=== PATIENT | female | born 1950 | race Caucasian/White ===

== ENCOUNTER 2016-10-24 19:07 | Emergency (ER) | payer SELFPAY ==
[2016-10-24 20:32] VITALS: RESP 18
[2016-10-24] MEDS ORDERED: Sodium Chloride 0.9% 1,000 ML IV ONE (21:09)
[2016-10-24 21:29] LABS: BASO # 0.1 K/uL (0.0-0.2); EOS # 0.2 K/uL (0.0-0.7); EOS % 1.2 % (0.0-4.0); HEMATOCRIT 38.5 % (34.0-47.0); LYMPH % 21.8 % (20.0-40.0); MEAN CELL VOLUME 77.9 fL (81.0-99.0); MEAN CORPUSCULAR HEMOGLOBIN 24.9 pg (27.0-31.0); MEAN CORPUSCULAR HGB CONC 31.9 g/dL (33.0-37.0); MEAN PLATELET VOLUME 9.7 fL (7.2-11.7); MONO # 1.8 K/uL (0.0-0.8); MONO % 13.4 % (0.0-10.0); WHITE BLOOD COUNT 13.8 K/uL (4.8-10.8)
[2016-10-24 21:34] LABS: CHLORIDE 94 mmol/L (98-107)
[2016-10-24 21:35] LABS: SODIUM 137 mmol/L (132-148)
[2016-10-24 21:37] LABS: BILIRUBIN,TOTAL 0.3 mg/dL (0.2-1.3); GFR AFRICAN-AMERICAN > 60
[2016-10-24 21:38] LABS: ALB/GLOB RATIO 1.2 (1.0-2.1); ALKALINE PHOSPHATASE 68 U/L (38-126); ALT/SGPT 26 U/L (9-52); AST/SGOT 82 U/L (14-36); BLOOD UREA NITROGEN 21 mg/dL (7-17); CALCIUM 12.5 mg/dl (8.6-10.4); CARBON DIOXIDE 29 mmol/L (22-30); GLUCOSE,RANDOM 110 mg/dL (65-105)
[2016-10-24 21:50] LABS: URINE BILIRUBIN NEGATIVE (NEGATIVE); URINE BLOOD NEGATIVE (NEGATIVE); URINE COLOR Straw (YELLOW); URINE GLUCOSE (UA) NORMAL (Normal); URINE KETONE NEGATIVE (NEGATIVE); URINE LEUKOCYTE ESTERASE TRACE Leu/uL (Negative); URINE PROTEIN NEGATIVE (NEGATIVE); URINE UROBILINOGEN NORMAL mg/dL (0.2-1.0); WBC URINE 2 /hpf (0-5)
[2016-10-24 23:11] LABS: CHLORIDE 97 mmol/L (98-107); POTASSIUM 3.6 mmol/L (3.6-5.2); SODIUM 139 mmol/L (132-148)
[2016-10-24 23:14] LABS: ALB/GLOB RATIO 1.3 (1.0-2.1); ALKALINE PHOSPHATASE 66 U/L (38-126); ALT/SGPT 24 U/L (9-52); AST/SGOT 79 U/L (14-36); BILIRUBIN,TOTAL 0.2 mg/dL (0.2-1.3); BLOOD UREA NITROGEN 17 mg/dL (7-17); CALCIUM 11.9 mg/dl (8.6-10.4); CARBON DIOXIDE 26 mmol/L (22-30); GFR AFRICAN-AMERICAN > 60; GLUCOSE,RANDOM 115 mg/dL (65-105); TOTAL PROTEIN 7.7 g/dL (6.3-8.3)
[2016-10-24 23:36] VITALS: BP 121/79; PULSE 88; TEMP 98.3; O2SAT 97
--- NOTE | 2016-10-24 23:47 | C.PDOC ---
Time Seen by Provider: 10/24/16 21:00 Chief Complaint (Nursing): Weakness/Neurological Deficit History Per: Patient, Family Onset/Duration Of Symptoms: Days (few), Waxing/Waning Current Symptoms Are (Timing): Still Present Current Symptoms: Generalized weakness/malaise Seizure Or Post-ictal Symptoms: None Fall Associated With With Symptoms: No Severity: Moderate Additional History Per: Prior Records - Symptoms Of CVA Associated Symptoms: denies: Impaired Speech, Seizure Activity, New Vision Deficit(Left), New Vision Deficit(Right), New Confusion Recent Head Trauma: No Past Medical History Reviewed: Historical Data, Nursing Documentation, Vital Signs Vital Signs: Last Vital Signs Temp 98.3 F 10/24/16 23:31 Pulse 88 10/24/16 23:31 Resp 18 10/24/16 23:31 BP 121/79 10/24/16 23:31 Pulse Ox 97 10/24/16 23:31 - Medical History PMH: Cardia Arrhythmia, Diabetes, Diverticulitis, HTN, Hypercholesterolemia Surgical History: Appendectomy, Cholecystectomy, Coronary Stent (2007) - [employer] Procedures LAPAROSCOP APPENDECTOMY (03/18/15) MEASURE OF CARDIAC SAMPL & PRESSURE, L HEART, PERC APPROACH (05/05/15) PLAIN RADIOGRAPHY OF LEFT HEART USING OTHER CONTRAST (05/05/15) PLAIN RADIOGRAPHY OF THORACIC AORTA USING OTHER CONTRAST (05/05/15) Family History: States: Unknown Family Hx - Social History Hx Tobacco Use: No Hx Alcohol Use: No Hx Substance Use: No - Immunization History Hx Tetanus Toxoid Vaccination: No Hx Influenza Vaccination: No Hx Pneumococcal Vaccination: Yes Review Of Systems Except As Marked, All Systems Reviewed And Found Negative. Constitutional: Positive for: Malaise. Negative for: Fever Cardiovascular: Negative for: Chest Pain Respiratory: Negative for: Shortness of Breath Gastrointestinal: Negative for: Vomiting, Abdominal Pain, Diarrhea Genitourinary: Positive for: Frequency. Negative for: Dysuria Musculoskeletal: Negative for: Neck Pain Skin: Negative for: Rash Neurological: Negative for: Weakness, Numbness, Seizures, Altered Mental Status , Headache Psych: Negative for: Psychosis Physical Exam - Physical Exam Appears: Non-toxic, No Acute Distress Skin: Normal Color, Warm, Dry, No Rash Head: Atraumatic, Normacephalic Eye(s): bilateral: PERRL, EOMI Neck: Normal ROM, Supple Cardiovascular: Rhythm Regular Respiratory: Normal Breath Sounds, No Accessory Muscle Use Gastrointestinal/Abdominal: Soft, No Tenderness Back: No CVA Tenderness Extremity: Normal ROM, No Pedal Edema Neurological/Psych: Oriented x3, Normal Cognition, Normal Motor, Normal Sensation ED Course And Treatment - Laboratory Results Result Diagrams: 10/24/16 21:25 10/24/16 23:02 Lab Interpretation: Abnormal Interpretation Of Abnormal: Moderate hypercalcemia ECG: Interpreted By Me, Viewed By Me ECG Rhythm: Sinus Rhythm, 1st Degree HB, Nonspecific Changes Rate From EC O2 Sat by Pulse Oximetry: 97 Pulse Ox Interpretation: Normal Progress Note: After IV fluids, repeat chemistry now shows mild hypercalcemia and pt is now asymptomatic. Pt needs further work-up of the cause of hypercalcemia, but this can be done as outpt. Of note, pt take vitamin D supplement. Also, pt takes HCTZ which can exacerbate hypercalcemia. In instructed her to stop both and f/up in the clinic for further evaluation. Reassessment Condition: Improved Disposition Counseled Patient/Family Regarding: Studies Performed, Diagnosis, Need For Followup - Disposition Referrals: [facility] [Outside] Disposition: HOME/ ROUTINE Disposition Time: 23:52 Condition: IMPROVED Additional Instructions: Stop taking your Vitamin D supplement. Follow up in the clinic within 1 week for further evaluation and treatment. Return to the ER if you develop lethargy, vomiting, chest pain, worsening of symptoms or if you have any other concerns. Instructions: Hypercalcemia (ED) - Clinical Impression Clinical Impression: Hypercalcemia
--- NOTE | 2016-10-26 19:04 | CARD ---
APPROVED REPORT EKG Measurement Heart [id number] <Conclusion> Sinus rhythm with 1st degree AV block Nonspecific T wave abnormality Abnormal ECG
== END 2016-10-25 00:07 | disposition home or self-care (01) ==
LOC: C.ER 19:07
DX: E83.52 Hypercalcemia (principal)
CPT/HCPCS: 80053; 81001; 83735; 83880; 84484; 85025; 87086; 93005; 96360; 99285; J7040

== ENCOUNTER 2016-11-03 15:26 | Inpatient (IN) | payer OTHER ==
[2016-11-03] MEDS ORDERED: Sodium Chloride 0.9% 1,000 ML IV ONE (16:48)
[2016-11-03 16:58] LABS: BASO # 0.2 K/uL (0.0-0.2); BASO % 1.1 % (0.0-2.0); EOS # 0.1 K/uL (0.0-0.7); EOS % 0.6 % (0.0-4.0); HEMATOCRIT 36.3 % (34.0-47.0); LYMPH % 19.7 % (20.0-40.0); MEAN CELL VOLUME 77.8 fL (81.0-99.0); MEAN CORPUSCULAR HGB CONC 32.1 g/dL (33.0-37.0); MEAN PLATELET VOLUME 9.9 fL (7.2-11.7); MONO # 2.1 K/uL (0.0-0.8); MONO % 13.9 % (0.0-10.0); WHITE BLOOD COUNT 15.3 K/uL (4.8-10.8)
[2016-11-03 17:06] LABS: CHLORIDE 100 mmol/L (98-107); SODIUM 136 mmol/L (132-148)
[2016-11-03 17:07] LABS: POTASSIUM 3.7 mmol/L (3.6-5.2)
[2016-11-03 17:08] LABS: GFR AFRICAN-AMERICAN > 60
[2016-11-03 17:09] LABS: ALB/GLOB RATIO 1.2 (1.0-2.1); ALKALINE PHOSPHATASE 62 U/L (38-126); ALT/SGPT 45 U/L (9-52); AST/SGOT 93 U/L (14-36); BILIRUBIN,TOTAL 0.2 mg/dL (0.2-1.3); BLOOD UREA NITROGEN 14 mg/dL (7-17); CALCIUM 12.7 mg/dl (8.6-10.4); CARBON DIOXIDE 25 mmol/L (22-30); GLUCOSE,RANDOM 112 mg/dL (65-105); PHOSPHOROUS 2.3 mg/dL (2.5-4.5); TOTAL PROTEIN 6.8 g/dL (6.3-8.3)
[2016-11-03 17:10] LABS: MAGNESIUM 1.9 mg/dL (1.6-2.3)
[2016-11-03 17:14] LABS: INR 1.1
[2016-11-03] MEDS ORDERED: Iodixanol 320 MG/ML 200 ML BOTTLE IV ONE (17:49)
--- NOTE | 2016-11-03 18:36 | CT ---
CT chest with IV contrast Indication: Abnormal CXR. r/o malignancy. Elevated DDimer. Technique: Contiguous axial images were obtained through the chest with intravenous contrast enhancement. Sagittal and coronal reconstructions were generated and reviewed. This CT exam was performed using 1 or more of the falling dose reduction techniques: Automated exposure control, adjustment of the MAA and/or kV according to patient size, and/or use of iterative reconstruction technique. IV Contrast: 100 cc Visipaque 320 Radiation dose (DLP): 450.59 MGy-cm. Comparison: Chest x-ray performed earlier the same day. Findings: Visualized portions of the inferior thyroid gland demonstrates punctate calcification of the lower lobe. The mediastinal and hilar vascular structures appear within normal limits. Heart size appears within normal limits. Coronary artery calcifications. No significant pericardial effusion. Mediastinal adenopathy. Large sub carinal lymph node measuring approximately caps No large central or segmental pulmonary embolus evident. Innumerable bilateral pulmonary masses. Large 8.2 x 6.2 cm mass with irregular contours which abuts/encases branches of the pulmonary artery. Small right-sided pleural effusion. No pneumothorax. Limited visualization of the upper abdomen reveals small perihepatic ascites. Cholecystectomy clips. 11 mm hyperdense/enhancing exophytic hepatic lesion within the posterior right hepatic lobe (series 3, image 99), appears to contain calcifications; etiology indeterminate. Small hiatal hernia/distal esophageal wall thickening. No acute osseous abnormality is detected. Impression: Innumerable bilateral pulmonary masses. Large 8.2 x 6.2 cm mass with irregular contours which abuts/encases branches of the pulmonary artery. Appearance consistent with metastatic disease. Correlate clinically. Mediastinal adenopathy. Large sub carinal lymph node measuring approximately caps No large central or segmental pulmonary embolus evident. Small right-sided pleural effusion. Limited visualization of the upper abdomen reveals small perihepatic ascites. Cholecystectomy clips. 11 mm hyperdense exophytic hepatic lesion within the posterior right hepatic lobe, appears to contain calcification ; etiology unclear. Small hiatal hernia/ distal esophageal wall thickening.
--- NOTE | 2016-11-03 19:11 | C.PDOC ---
History Of Present Illness Pt had been feeling malaised. She was seen here and diagnosed with hypercalcemia. She stopped her HCTZ and Vitamin D without any improvement in symptoms so she return to the ER. Time Seen by Provider: 11/03/16 16:23 Chief Complaint (Nursing): Dizziness/Lightheaded History Per: Patient, Family Onset/Duration Of Symptoms: Days, Gradual Current Symptoms Are (Timing): Still Present Current Symptoms: Generalized weakness Fall Associated With With Symptoms: No Severity: Moderate Additional History Per: Prior Records - Symptoms Of CVA Recent Head Trauma: No Past Medical History Reviewed: Historical Data, Nursing Documentation, Vital Signs Vital Signs: Last Vital Signs Temp 98.4 F 11/03/16 18:35 Pulse 104 H 11/03/16 18:35 Resp 18 11/03/16 18:35 BP 142/86 11/03/16 18:35 Pulse Ox 94 L 11/03/16 19:12 - Medical History PMH: Cardia Arrhythmia, Diabetes, Diverticulitis, HTN, Hypercholesterolemia Surgical History: Appendectomy, Cholecystectomy, Coronary Stent (2007) - [employer] Procedures LAPAROSCOP APPENDECTOMY (03/18/15) MEASURE OF CARDIAC SAMPL & PRESSURE, L HEART, PERC APPROACH (05/05/15) PLAIN RADIOGRAPHY OF LEFT HEART USING OTHER CONTRAST (05/05/15) PLAIN RADIOGRAPHY OF THORACIC AORTA USING OTHER CONTRAST (05/05/15) Family History: States: Unknown Family Hx - Social History Hx Tobacco Use: No Hx Alcohol Use: No Hx Substance Use: No - Immunization History Hx Tetanus Toxoid Vaccination: No Hx Influenza Vaccination: No Hx Pneumococcal Vaccination: Yes Review Of Systems Except As Marked, All Systems Reviewed And Found Negative. Constitutional: Positive for: Weakness, Malaise. Negative for: Fever Cardiovascular: Negative for: Chest Pain Respiratory: Negative for: Hemoptysis Gastrointestinal: Negative for: Vomiting, Abdominal Pain Genitourinary: Negative for: Dysuria Musculoskeletal: Negative for: Neck Pain Skin: Negative for: Rash Neurological: Negative for: Weakness, Numbness, Seizures, Altered Mental Status Physical Exam - Physical Exam Appears: No Acute Distress Skin: Normal Color, Warm, Dry Head: Atraumatic Eye(s): bilateral: PERRL, EOMI Neck: Normal ROM, Supple Cardiovascular: Rhythm Regular Respiratory: Normal Breath Sounds, No Accessory Muscle Use Gastrointestinal/Abdominal: Soft, No Tenderness Back: No CVA Tenderness Extremity: Normal ROM, No Calf Tenderness Neurological/Psych: Oriented x3, Normal Motor, Normal Sensation ED Course And Treatment - Laboratory Results Result Diagrams: 11/03/16 16:53 11/03/16 16:53 Lab Interpretation: Abnormal Interpretation Of Abnormal: Hypercalcemia ECG: Interpreted By Me, Viewed By Me ECG Rhythm: Sinus Rhythm, Nonspecific Changes Rate From EC O2 Sat by Pulse Oximetry: 94 (on RA) Pulse Ox Interpretation: Other Interpretation Of Abnormal: Borderline - CT Scan/US CTA of chest Other Rad Studies (CT/US): Read By Radiologist, Radiology Report Reviewed CT/US Interpretation: Impression: Innumerable bilateral pulmonary masses. Large 8.2 x 6.2 cm mass with irregular contours which abuts/encases branches of the pulmonary artery. Appearance consistent with metastatic disease. Correlate clinically. . Mediastinal adenopathy. Large sub carinal lymph node measuring approximately caps. No large central or segmental pulmonary embolus evident. Small right-sided pleural effusion. Limited visualization of the upper abdomen reveals small perihepatic ascites. Cholecystectomy clips. 11 mm hyperdense exophytic hepatic lesion within the posterior right hepatic lobe, appears to contain calcification ; etiology unclear. Small hiatal hernia/ distal esophageal wall thickening. Progress - Interventions Interventions:: Observation, Intravenous fluid, Oxygen - Data Reviewed Data Reviewed: Lab, Diagnostic imaging, EKG, Old records - Patient Status Patient status: Partially improved - Continuity of Care Discussed patient case with:: Patient, Family-HIPPA compliant, ED Nurse, On- call PMD-pt unassigned - Patient Plan Patient Plan: Admission, Telemetry Disposition Discussed With DrRakel: Vipin Waters Comment: He accepted pt on hospitalist service. Doctor Will See Patient In The: Hospital Counseled Patient/Family Regarding: Studies Performed, Diagnosis - Disposition Disposition: HOSPITALIZED Disposition Time: 19:48 Condition: GUARDED - Clinical Impression Clinical Impression: Hypercalcemia, Metastatic cancer
--- NOTE | 2016-11-03 21:02 | CP.PCM.HP ---
<SherlynKerrie rivers DO - Last Filed: 11/03/16 21:58> History of Present Illness - History of Present Illness History of Present Illness: Patient is a 66 year old [place]ian female with past medical history of hypertension , hyperlipidemia, coronary artery disease status post stenting, and uterine fibroids who presents to the hospital with complaint of generalized fatigue, malaise, and weakness for the past two weeks. Patient was previously seen in the ED here on 10/24/16, at which time she was diagnosed with hypercalcemia, with a calcium level of 11.9. Patient was told at that time to discontinue her use of hydrochlorothiazide and vitamin D. Patient was referred to the [facility] for follow up care. Patient was seen at the clinic yesterday 11/02, by Dr. Rhoades, for management of her uterine fibroids. During that clinic visit the possibility of malignancy in the uterus was discussed due to uterus size and patient discussed her preference for hysterectomy. Patient was also seen in the clinic today, , for follow up of her hypercalcemia and lab work and thyroid ultrasound was ordered. Patient states that she felt too weak and came back to the ED for re- evaluation. Patient admits to sleeping more during the day, as well as poor sleep at night due to waking up 2-3 times per night to urinate. Patient states she was told that her uterine fibroids are pressing on her bladder as the cause of the urinary frequency. Patient admits to feeling hot and breaking out into a sweat occasionally. Patient also admits to light-headedness but denies room spinning. Patient admits to visual changes where she sees a silver spot zig-zag across her vision - this has occurred 3 times over the past 2 weeks. Patient admits to occasional palpitations but denies chest pain. Patient admits to shortness of breath with walking at a fast pace for one block. Patient denies needing to stop walking, but will have to slow down. Patient denies orthopnea. Patient admits to nausea and constipation but denies change in stool color. Patient is able to have bowel movement with aid of stool softener. Patient admits to occasional back pain. She also admits to 9 pound unintentional weight loss over 3 months duration. Patient and family deny change in mentation. PMD: [facility] Outpatient gynecology: Dr. Rhoades at [facility] PMHx: HTN, HLD, CAD, uterine fibroids PSHx: appendectomy, cholecystectomy, cardiac catheterization with stents FamHx: sister with diabetes, mother and father of [place] in mid 70s Social Hx: former 1 ppd smoker for 30 years, quit 10-15 years ago; denies drugs and alcohol; lives with daughter Allergies: lisinopril- constant dry cough Present on Admission - Present on Admission Any Indicators Present on Admission: No Review of Systems - Constitutional Constitutional: Lethargy, Malaise, Weight Loss. absent: Chills, Fever, Headache - EENT Eyes: Change in Vision, Other Visual Disturbances Ears: absent: Decreased Hearing Nose/Mouth/Throat: absent: Dysphagia - Cardiovascular Cardiovascular: Dyspnea on Exertion, Lightheadedness, Palpitations. absent: Chest Pain, Orthopnea - Respiratory Respiratory: Dyspnea on Exertion. absent: Cough - Gastrointestinal Gastrointestinal: Constipation, Nausea. absent: Abdominal Pain, Change in Stool Character, Diarrhea, Vomiting - Genitourinary Genitourinary: Urinary Frequency. absent: Dysuria - Musculoskeletal Musculoskeletal: Back Pain - Psychiatric Psychiatric: absent: Behavioral Changes - Endocrine Endocrine: Fatigue, Flushing Past Patient History - Infectious Disease Hx of Infectious Diseases: None - Past Medical History & Family History Past Medical History?: Yes - Past Social History Smoking Status: Former Smoker - CARDIAC Hx Cardia Arrhythmia: Yes Hx Hypercholesterolemia: Yes Hx Hypertension: Yes - PULMONARY Hx Respiratory Disorders: No - NEUROLOGICAL Hx Neurological Disorder: No - HEENT Hx HEENT Problems: No - ENDOCRINE/METABOLIC Hx Endocrine Disorders: Yes Hx Diabetes Mellitus Type 2: Yes - HEMATOLOGICAL/ONCOLOGICAL Hx Blood Disorders: No - INTEGUMENTARY Hx Dermatological Problems: No - MUSCULOSKELETAL/RHEUMATOLOGICAL Hx Musculoskeletal Disorders: No Hx Falls: No - GASTROINTESTINAL Hx Diverticulitis: Yes - GENITOURINARY/GYNECOLOGICAL Hx Genitourinary Disorders: No Other/Comment: uterine fibroids - PSYCHIATRIC Hx Substance Use: No - SURGICAL HISTORY Hx Appendectomy: Yes Hx Cholecystectomy: Yes Hx Coronary Stent: Yes (2007) - ANESTHESIA Hx Anesthesia: Yes Hx Anesthesia Reactions: No Hx Malignant Hyperthermia: No Meds Allergies/Adverse Reactions: Allergies Allergy/AdvReac Type Severity Reaction Status Date / Time lisinopril AdvReac Verified 11/03/16 15:44 Physical Exam - Constitutional Appears: Non-toxic, No Acute Distress - Head Exam Head Exam: ATRAUMATIC, NORMOCEPHALIC - Eye Exam Eye Exam: EOMI, Normal appearance, PERRL. absent: Nystagmus, Scleral icterus - ENT Exam ENT Exam: Mucous Membranes Moist - Neck Exam Neck exam: Positive for: Full Rom. Negative for: Lymphadenopathy, Tenderness - Respiratory Exam Respiratory Exam: Clear to Auscultation Bilateral, NORMAL BREATHING PATTERN - Cardiovascular Exam Cardiovascular Exam: Tachycardia, +S1, +S2 - GI/Abdominal Exam GI & Abdominal Exam: Distended, Normal Bowel Sounds, Soft. absent: Firm, Guarding, Tenderness - Exam Additional comments: palpable uterus - Extremities Exam Extremities exam: Negative for: calf tenderness, pedal edema - Neurological Exam Neurological exam: Alert, CN II-XII Intact, Oriented x3, Reflexes Normal Additional comments: normal patellar, brachioradialis reflexes, no clonus - Expanded Neurological Exam Expanded Cranial nerves: EOM's Intact: Normal, Facial Sensation: Normal, Nystagmus: Normal, Tongue Deviation: Normal Cerebellar Function: Finger to Nose: Normal, Heel to Connell: Normal Upper motor neuron: Babinski Sign: Normal Neuro motor strength exam: Left Upper Extremity: 5, Right Upper Extremity: 5, Left Lower Extremity: 5, Right Lower Extremity: 5 - Psychiatric Exam Psychiatric exam: Normal Affect - Skin Skin Exam: Dry, Normal Color, Warm Results - Vital Signs Recent Vital Signs: Last Vital Signs Temp 98.4 F 11/03/16 18:35 Pulse 104 H 11/03/16 18:35 Resp 18 11/03/16 18:35 BP 142/86 11/03/16 18:35 Pulse Ox 94 L 11/03/16 19:49 - Labs Result Diagrams: 11/03/16 16:53 11/03/16 16:53 Labs: Laboratory Results - last 24 hr 11/03/16 16:53 WBC 15.3 H RBC 4.67 Hgb 11.7 Hct 36.3 MCV 77.8 L MCH 25.0 L MCHC 32.1 L RDW 14.0 Plt Count 406 H MPV 9.9 Neut % (Auto) 64.7 Lymph % (Auto) 19.7 L Emmet % (Auto) 13.9 H Eos % (Auto) 0.6 Baso % (Auto) 1.1 Neut # 9.9 H Lymph # 3.0 Emmet # 2.1 H Eos # 0.1 Baso # 0.2 PT 12.8 H INR 1.1 APTT 28 D D-Dimer, Quantitative 977 H Sodium 136 Potassium 3.7 Chloride 100 Carbon Dioxide 25 Anion Gap 15 BUN 14 Creatinine 0.7 Est GFR ( Amer) > 60 Est GFR (Non-Af Amer) > 60 Random Glucose 112 H Calcium 12.7 H Phosphorus 2.3 L Magnesium 1.9 Total Bilirubin 0.2 AST 93 H ALT 45 Alkaline Phosphatase 62 Troponin I < 0.0120 NT-Pro-B Natriuret Pep 60.9 Total Protein 6.8 Albumin 3.7 Globulin 3.1 Albumin/Globulin Ratio 1.2 Assessment & Plan (1) Hypercalcemia Assessment and Plan: Calcium 12.7 today, was 11.9 on ER visit 10/24/16 Patient already discontinued her use of HCTZ and vitamin D Will start patient on normal saline at 100cc/h and will start IV lasix 20mg daily will re-check calcium on morning labs repeat EKG in AM will check PTH, vitamin D level will check thyroid US Discussed with Dr. Esposito, heme-onc- will check AM labs, patient may need bisphosphonates Status: Acute (2) Pulmonary mass Assessment and Plan: CTA ordered due to elevated D-dimer 977 CTA negative for large central pulmonary embolus but it shoes innumerable bilateral pulmonary masses. Large 8.2x6.2 cm mass with irregular contours which abuts/ encases branches of the pulmonary artery. appearance consistent with metastatic disease. CT abdomen/ pelvis ordered to try to locate primary tumor Heme-onc on board, Dr. Esposito- help appreciated recommends IR biopsy of lung mass as well as CT abdomen/ pelvis Status: Acute (3) History of uterine fibroid Assessment and Plan: Patient seen in [facility] ER on 03/26/16 for post-menopausal vaginal bleeding and was referred to Dr. Rhoades Per clinic documentation, patient had post menopausal bleeding and was seen at [facility] at [address] [place] [address] in 03/2016 with pelvic ultrasound and endometrial biopsy. US: enlarged, rounded at th efundus, bulky and inhomogenous uterus measureing 10.8 x 7.9 x 7.7cm. Fibroid mass at posterior aspect of uterus measuring 6.5 x 5.3 x 5.2cm. Endometrial biopsy: 06/2016- no evidence of endometrial hyperplasia, atypia, or malignancy Patient currently seeing Dr. Rhoades at [facility] for evaluation for hysterectomy Status: Acute (4) Hyperlipidemia Assessment and Plan: Continue home medication equivalent- crestor 5mg Status: Acute (5) Hypertension Assessment and Plan: Continue home medications norvasc 10mg daily, metoprolol succinate 50mg daily Status: Acute (6) CAD (coronary artery disease) Assessment and Plan: Cath 04/2015: EF 70%, critical stenosis in mid-RCA, patent stend in prox LAD. Stent was placed in mid-RCA. patient not on aspirin due to history of GI bleed per historical documentation Status: Acute (7) Prophylactic measure Assessment and Plan: heparin 5000 units q8h will try to match I/Os with IVF and lasix use protonix 40mg daily Status: Acute <Vipin Waters - Last Filed: 11/04/16 06:25> Results - Vital Signs Recent Vital Signs: Last Vital Signs Temp 97.9 F 11/03/16 23:25 Pulse 102 H 11/04/16 03:46 Resp 20 11/04/16 03:46 BP 162/90 H 11/04/16 03:46 Pulse Ox 95 11/04/16 03:46 - Labs Result Diagrams: 11/03/16 16:53 11/03/16 16:53 Assessment & Plan - Date & Time Date: 11/04/16 (I have seen and examined the patient. I agree with the findings and plan of care as documented by Dr. Plata. Patient with hypercalcemia and pulmonary mass. Concern for metastatic disease. Consult to heme/onc. Lasix with IVF. Record Input and output. Repeat calcium and EKG. D -dimer positive with CT angio negative for PE. Heparin for DVT prophylaxis. Monitor for acute changes.) Time: 06:23 Attending/Attestation - Attestation I have personally seen and examined this patient.: Yes I have fully participated in the care of the patient.: Yes I have reviewed all pertinent clinical information: Yes
[2016-11-03] MEDS: Sodium Chloride 0.9% 1,000 ML IV SCH (21:25)
[2016-11-03] MEDS: oxyCODONE 5 mg Immediate Release Tab PO PRN (22:39)
[2016-11-04] MEDS: oxyCODONE 5 mg Immediate Release Tab PO PRN ×2 (05:28→12:18)
[2016-11-04] MEDS: Sodium Chloride 0.9% 1,000 ML IV SCH ×2 (06:13→15:45)
[2016-11-04 06:35] LABS: BASO # 0.1 K/uL (0.0-0.2); BASO % 0.7 % (0.0-2.0); EOS # 0.1 K/uL (0.0-0.7); EOS % 0.4 % (0.0-4.0); HEMATOCRIT 37.1 % (34.0-47.0); LYMPH % 14.2 % (20.0-40.0); MEAN CELL VOLUME 78.7 fL (81.0-99.0); MEAN CORPUSCULAR HEMOGLOBIN 24.4 pg (27.0-31.0); MEAN PLATELET VOLUME 9.4 fL (7.2-11.7); MONO # 2.1 K/uL (0.0-0.8); MONO % 14.7 % (0.0-10.0); RED CELL DISTRIBUTION WIDTH 13.8 % (11.5-14.5)
[2016-11-04 06:53] LABS: CHLORIDE 101 mmol/L (98-107); SODIUM 138 mmol/L (132-148)
[2016-11-04 06:54] LABS: POTASSIUM 3.8 mmol/L (3.6-5.2)
[2016-11-04 06:56] LABS: ALB/GLOB RATIO 1.1 (1.0-2.1); ALKALINE PHOSPHATASE 60 U/L (38-126); AST/SGOT 84 U/L (14-36); BILIRUBIN,TOTAL 0.2 mg/dL (0.2-1.3); BLOOD UREA NITROGEN 10 mg/dL (7-17); CARBON DIOXIDE 26 mmol/L (22-30); GFR AFRICAN-AMERICAN > 60; GLUCOSE,RANDOM 100 mg/dL (65-105); TOTAL PROTEIN 6.4 g/dL (6.3-8.3)
[2016-11-04 06:57] LABS: ALT/SGPT 43 U/L (9-52); CALCIUM 12.6 mg/dl (8.6-10.4)
[2016-11-04] MEDS: Pantoprazole 40 mg EC Tab PO SCH (09:31)
[2016-11-04] MEDS: Metoprolol Succinate 50 mg XL Tab PO SCH (12:22)
--- NOTE | 2016-11-04 14:44 | CP.PCM.PN ---
<Rhett Guo - Last Filed: 11/04/16 14:41> Subjective - Date & Time of Evaluation Date of Evaluation: 11/04/16 Time of Evaluation: 07:11 - Subjective Subjective: Pt seen and examined. Pt reports that she is feeling very weak. She also complains of pain in her mid lower abdomen. Pt also reports that she has a decreased appetite. Pt reports that she had a small bowel movement yesterday. Pt denies fever, chills, chest pain, shortness of breath, nausea, and vomiting. Objective - Vital Signs/Intake and Output Vital Signs (last 24 hours): Temp Pulse Resp BP Pulse Ox 98.1 F 96 H 20 142/80 96 11/04/16 13:00 11/04/16 13:00 11/04/16 13:00 11/04/16 13:42 11/04/16 13:00 Intake and Output: 11/04/16 11/04/16 06:59 18:59 Intake Total 1040 Output Total 600 Balance 440 - Medications Medications: Current Medications Amlodipine Besylate (Norvasc) 10 mg PO DAILY [facility] Last Admin: 11/04/16 09:31 Dose: 10 mg Docusate Sodium (Colace) 100 mg PO BID [facility] Last Admin: 11/04/16 09:31 Dose: 100 mg Furosemide (Lasix) 20 mg IVP DAILY [facility] Last Admin: 11/04/16 13:42 Dose: 20 mg Heparin Sodium (Porcine) (Heparin) 5,000 units SC Q8 [facility] Last Admin: 11/04/16 14:12 Dose: 5,000 units Sodium Chloride (Sodium Chloride 0.9%) 1,000 mls @ 125 mls/hr IV .Q8H [facility] Isosorbide Mononitrate (Imdur) 30 mg PO DAILY [facility] Last Admin: 11/04/16 09:31 Dose: 30 mg Metoprolol Succinate (Toprol Xl) 50 mg PO DAILY [facility] Last Admin: 11/04/16 12:22 Dose: Not Given Oxycodone/Acetaminophen (Percocet 5/325 Mg Tab) 1 tab PO Q4H PRN PRN Reason: Pain, moderate (4-7) Stop: 11/07/16 14:38 Pantoprazole Sodium (Protonix Ec Tab) 40 mg PO DAILY [facility] Last Admin: 11/04/16 09:31 Dose: 40 mg Rosuvastatin Calcium (Crestor) 5 mg PO HS [facility] Last Admin: 11/03/16 22:40 Dose: 5 mg - Labs Labs: 11/04/16 06:29 11/04/16 06:29 PT 12.8 SECONDS (9.7-12.2) H 11/03/16 16:53 INR 1.1 11/03/16 16:53 APTT 28 SECONDS (21-34) D 11/03/16 16:53 - Constitutional Appears: No Acute Distress - Head Exam Head Exam: ATRAUMATIC, NORMOCEPHALIC - Eye Exam Eye Exam: EOMI, PERRL Pupil Exam: PERRL. absent: Irregular - ENT Exam ENT Exam: Mucous Membranes Moist. absent: Mucous Membranes Dry - Respiratory Exam Respiratory Exam: Clear to Ausculation Bilateral. absent: Rales, Rhonchi, Wheezes - Cardiovascular Exam Cardiovascular Exam: +S1, +S2. absent: Gallop, Rubs, Murmur - GI/Abdominal Exam GI & Abdominal Exam: Distended, Soft, Tenderness, Hypoactive Bowel Sounds. absent: Guarding Additional comments: Lower abdominal tenderness - Extremities Exam Extremities Exam: Full ROM - Neurological Exam Neurological Exam: Alert, Awake, Oriented x3 - Psychiatric Exam Psychiatric exam: Normal Affect, Normal Mood - Skin Skin Exam: Normal Color, Warm Assessment and Plan - Assessment and Plan (Free Text) Assessment: SIRS: WBC 14.0, improved from 15.3 Pt slightly tachycardic at 105 bpm Pt afebrile Hypercalcemia: Ca2+ 12.6, improved from 12.7 NS IVF increased to 125 cc/hr from 100 cc/hr Lasix 20 mg IV qd TSH, Free T4 pending PTH levels pending PTH related peptide levels pending EKG 11/04 pending EKG 11/03 - normal QT interval Thryoid ultrasound pending Chest CT - innumerable bilateral pulmonary masses; large 8.2 x 6.2 cm central mass with irregular contours abutting/encasing branches of the pulmonary artery ; small right sided pleural effusion; consistent with metastatic disease; mediastinal adenopathy; 11 mm hepatic lesion within the right hepatic lobe; no pulmonary embolus evident (please see full report) Heme/onc, Dr. Brannon, consulted. Help appreciated. As per heme/ond, pt started on pamidronate drip Pulmonary Masses: Chest CT - innumerable bilateral pulmonary masses; large 8.2 x 6.2 cm central mass with irregular contours abutting/encasing branches of the pulmonary artery ; small right sided pleural effusion; consistent with metastatic disease; mediastinal adenopathy; 11 mm hepatic lesion within the right hepatic lobe; no pulmonary embolus evident (please see full report) Heme/onc, Dr. Brannon, consulted. Help appreciated. CA125 pending Elevated D-Dimer: D-dimer [address] - no pulmonary embolus (please see full report) Lower extremity venous dopplers pending Uterine fibroids: Abd/pelvis U/S: enlarged, rounded at the fundus, bulky and in homogenous uterus measuring 10.8 x 7.9 x 7.7cm. Fibroid mass at posterior aspect of uterus measuring 6.5 x 5.3 x 5.2cm (please see full report). Percocet 5/325 mg po q4h prn for pain Constipation: Likely due to hypercalcemia Colace 100 mg po qd HTN: Norvasc 10 mg po qd Toprol 50 mg po qd Coronary Artery Disease: Crestor 5 mg po hs Imdur 30 mg po qd Prophylactic Measures: GI: Protonix 40 mg po qd DVT: Heparin 5000 units sc q8h, scds held due to elevated d-dimer pending lower extremity venous dopplers <Opal Woodward V - Last Filed: 11/05/16 17:32> Objective - Vital Signs/Intake and Output Vital Signs (last 24 hours): Temp Pulse Resp BP Pulse Ox 98 F 91 H 22 146/86 95 11/05/16 13:00 11/05/16 07:39 11/05/16 07:39 11/05/16 10:12 11/05/16 07:39 Intake and Output: 11/05/16 11/05/16 06:59 18:59 Intake Total 600 800 Output Total 1500 Balance 600 -700 - Medications Medications: Current Medications Amlodipine Besylate (Norvasc) 10 mg PO DAILY [facility] Last Admin: 11/05/16 10:11 Dose: 10 mg Docusate Sodium (Colace) 100 mg PO BID [facility] Last Admin: 11/05/16 10:11 Dose: 100 mg Furosemide (Lasix) 20 mg IVP DAILY [facility] Last Admin: 11/05/16 10:12 Dose: 20 mg Heparin Sodium (Porcine) (Heparin) 5,000 units SC Q8 [facility] Last Admin: 11/05/16 13:41 Dose: 5,000 units Sodium Chloride (Sodium Chloride 0.9%) 1,000 mls @ 125 mls/hr IV .Q8H [facility] Last Admin: 11/05/16 11:19 Dose: 125 mls/hr Isosorbide Mononitrate (Imdur) 30 mg PO DAILY [facility] Last Admin: 11/05/16 10:11 Dose: 30 mg Metoprolol Succinate (Toprol Xl) 50 mg PO DAILY [facility] Last Admin: 11/05/16 10:11 Dose: 50 mg Oxycodone/Acetaminophen (Percocet 5/325 Mg Tab) 1 tab PO Q4H PRN PRN Reason: Pain, moderate (4-7) Stop: 11/07/16 14:38 Last Admin: 11/05/16 11:16 Dose: 1 tab Pantoprazole Sodium (Protonix Ec Tab) 40 mg PO DAILY [facility] Last Admin: 11/05/16 10:11 Dose: 40 mg Polyethylene Glycol (Miralax) 17 gm PO DAILY [facility] Last Admin: 11/05/16 13:41 Dose: 17 gm Rosuvastatin Calcium (Crestor) 5 mg PO HS [facility] Last Admin: 11/04/16 21:52 Dose: 5 mg - Labs Labs: 11/05/16 06:21 11/05/16 06:21 PT 12.8 SECONDS (9.7-12.2) H 11/03/16 16:53 INR 1.1 11/03/16 16:53 APTT 28 SECONDS (21-34) D 11/03/16 16:53 Attending/Attestation - Attestation I have personally seen and examined this patient.: Yes I have fully participated in the care of the patient.: Yes I have reviewed all pertinent clinical information, including history, physical exam and plan: Yes Notes (Text): This is a late computer entry for 11/04/16. Patient seen, examined, and case discussed with day-time resident. Patient's daughter at bedside assisting in translation for patient. Patient primarily understands Ghanaian, Maximiliano, and Cameroonian. As per daughter's translation, patient reports she is feeling tired, fatigue, and lack of energy. Per daughter, in regards to fibroid, patient has had prior ultrasounds for fibroid, and endometrial biopsy which reports was normal at a different clinic, and then followed up in the hospital clinic where she was being seen by rn delivery, and recommended for hysterectomy. She also reports her mother had visited the emergency room twice, where her HCTZ and vitamin D was stopped and recommended to follow-up with PMD, but came into to the hospital because was more tired and couldnt get out of bed. Patient denies dysfunctional uterine bleeding now but reports when she was first told she had a fibroid that she had some bleeding. I spoke with the patient with assistance of daughter at bedside, patient has hypercalcemia being monitored on telemetry, receiving IV fluids and Lasix; undergoing workup currently. Discussed with patient, CT Chest findings including the the multiple masses. Patient is a former smoker. Patient to have CT abdomen/Pelvis and CT head. Heme-onc recommended also bisphosphonate attempts to bring down the calcium. EKG repeated. QT interval normal. Pending SCDS r/o DVT; unlikely. Assessment/Plan SIRS: WBC 14.0, improved from 15.3 Pt slightly tachycardic at 105 bpm Pt afebrile Hypercalcemia: Ca2+ 12.6, improved from 12.7 NS IVF increased to 125 cc/hr from 100 cc/hr Lasix 20 mg IV qd TSH, Free T4 pending PTH levels pending PTH related peptide levels pending EKG 11/04 pending EKG 11/03 - normal QT interval Thryoid ultrasound pending Chest CT - innumerable bilateral pulmonary masses; large 8.2 x 6.2 cm central mass with irregular contours abutting/encasing branches of the pulmonary artery ; small right sided pleural effusion; consistent with metastatic disease; mediastinal adenopathy; 11 mm hepatic lesion within the right hepatic lobe; no pulmonary embolus evident (please see full report) Heme/onc, Dr. Brannon, consulted. Help appreciated. As per heme/ond, pt started on pamidronate drip Pulmonary Masses: Chest CT - innumerable bilateral pulmonary masses; large 8.2 x 6.2 cm central mass with irregular contours abutting/encasing branches of the pulmonary artery ; small right sided pleural effusion; consistent with metastatic disease; mediastinal adenopathy; 11 mm hepatic lesion within the right hepatic lobe; no pulmonary embolus evident (please see full report) Heme/onc, Dr. Brannon, consulted. Help appreciated. CA125 pending Elevated D-Dimer: D-dimer [address] - no pulmonary embolus (please see full report) Lower extremity venous dopplers pending Uterine fibroids: Abd/pelvis U/S: enlarged, rounded at the fundus, bulky and in homogenous uterus measuring 10.8 x 7.9 x 7.7cm. Fibroid mass at posterior aspect of uterus measuring 6.5 x 5.3 x 5.2cm (please see full report). Percocet 5/325 mg po q4h prn for pain Constipation: Likely due to hypercalcemia Colace 100 mg po qd HTN: Norvasc 10 mg po qdaily Toprol 50 mg po qdaily Coronary Artery Disease: Crestor 5 mg po hs Imdur 30 mg po qd Aspirin held on possible attempt of IR biopsy Prophylactic Measures: GI: Protonix 40 mg po qd DVT: Heparin 5000 units sc q8h, scds held due to elevated d-dimer pending lower extremity venous dopplers
[2016-11-04] MEDS: Oxycodone/Acetaminophen 5/325 mg Tab PO PRN ×3 (15:53→23:59)
--- NOTE | 2016-11-04 16:28 | CP.PCM.CON ---
History of Present Illness - History of Present Illness History of Present Illness: Oncology Consult Referred by Dr. Woodward for hypercalcemia and abnormal CT chest. HPI-Ms Bianchi is 66 y/o [place] F with h/o HTN, CAD s/p PCI, smoker (30 pack history, quit 10-15 yrs ago), uterine fibroids who was admitted with weakness, fatigue and malaise for last 2-3 weeks. She had problems with uterine fibroids recently with heavy bleeding and was thinking about getting hysterectomy. Over the last 4-5 months, she has lost around 5-7 pounds of weight. Appetite has been fair otherwise. She also gets constipated. Denies nausea, vomiting. She complains of shortness of breath with exertion, worsening recently. Denies chest pain. She denies headaches or blurry vision but for the last 1-2 weeks, she was noticing "zig zag" lines in her visual field. ON admission here, Ca levels was found to be elevated to 12.9 (corrected) with increased AST (93). She had slight leucocytosis, thrombocytosis and microcytic anemia. She was started on IV fluids along with low dose lasix. Her calcium levels didn't come down yet. CT Chest (done for elevated D dimer) showed multiple lung masses with largest 8 cm mass in right lung along with lymphadenopathy. Review of Systems - Review of Systems All systems: reviewed and no additional remarkable complaints except Review of Systems: as listed in HPI Past Patient History - Infectious Disease Hx of Infectious Diseases: None - Past Medical History & Family History Past Medical History?: Yes - Past Social History Smoking Status: Former Smoker - CARDIAC Hx Cardia Arrhythmia: Yes Hx Hypercholesterolemia: Yes Hx Hypertension: Yes - PULMONARY Hx Respiratory Disorders: No - NEUROLOGICAL Hx Neurological Disorder: No - HEENT Hx HEENT Problems: No - RENAL Hx Chronic Kidney Disease: No - ENDOCRINE/METABOLIC Hx Endocrine Disorders: Yes Hx Diabetes Mellitus Type 2: Yes - HEMATOLOGICAL/ONCOLOGICAL Hx Blood Disorders: No - INTEGUMENTARY Hx Dermatological Problems: No - MUSCULOSKELETAL/RHEUMATOLOGICAL Hx Musculoskeletal Disorders: No Hx Falls: No - GASTROINTESTINAL Hx Diverticulitis: Yes - GENITOURINARY/GYNECOLOGICAL Hx Genitourinary Disorders: No Other/Comment: uterine fibroids - PSYCHIATRIC Hx Substance Use: No - SURGICAL HISTORY Hx Appendectomy: Yes Hx Cholecystectomy: Yes Hx Coronary Stent: Yes (2007) - ANESTHESIA Hx Anesthesia: Yes Hx Anesthesia Reactions: No Hx Malignant Hyperthermia: No Meds Allergies/Adverse Reactions: Allergies Allergy/AdvReac Type Severity Reaction Status Date / Time lisinopril AdvReac Verified 11/03/16 15:44 - Medications Medications: Current Medications Amlodipine Besylate (Norvasc) 10 mg PO DAILY [facility] Last Admin: 11/04/16 09:31 Dose: 10 mg Docusate Sodium (Colace) 100 mg PO BID [facility] Last Admin: 11/04/16 09:31 Dose: 100 mg Furosemide (Lasix) 20 mg IVP DAILY [facility] Last Admin: 11/04/16 13:42 Dose: 20 mg Heparin Sodium (Porcine) (Heparin) 5,000 units SC Q8 [facility] Last Admin: 11/04/16 14:12 Dose: 5,000 units Sodium Chloride (Sodium Chloride 0.9%) 1,000 mls @ 125 mls/hr IV .Q8H [facility] Pamidronate Disodium 60 mg/ (Sodium Chloride) 520 mls @ 100 mls/hr IV ONCE ONE Stop: 11/04/16 20:41 Isosorbide Mononitrate (Imdur) 30 mg PO DAILY [facility] Last Admin: 11/04/16 09:31 Dose: 30 mg Metoprolol Succinate (Toprol Xl) 50 mg PO DAILY [facility] Last Admin: 11/04/16 12:22 Dose: Not Given Oxycodone/Acetaminophen (Percocet 5/325 Mg Tab) 1 tab PO Q4H PRN PRN Reason: Pain, moderate (4-7) Stop: 11/07/16 14:38 Last Admin: 11/04/16 15:53 Dose: 1 tab Pantoprazole Sodium (Protonix Ec Tab) 40 mg PO DAILY [facility] Last Admin: 11/04/16 09:31 Dose: 40 mg Rosuvastatin Calcium (Crestor) 5 mg PO HS [facility] Last Admin: 11/03/16 22:40 Dose: 5 mg Physical Exam - Head Exam Head Exam: ATRAUMATIC, NORMAL INSPECTION - Eye Exam Eye Exam: EOMI, PERRL - ENT Exam ENT Exam: Mucous Membranes Moist - Neck Exam Neck exam: Negative for: Lymphadenopathy - Respiratory Exam Respiratory Exam: Clear to Auscultation Bilateral - Cardiovascular Exam Cardiovascular Exam: REGULAR RHYTHM - GI/Abdominal Exam GI & Abdominal Exam: Distended, Soft. absent: Tenderness - Extremities Exam Extremities exam: Negative for: pedal edema Results - Vital Signs Recent Vital Signs: Last Vital Signs Temp 98.1 F 11/04/16 13:00 Pulse 96 H 11/04/16 13:00 Resp 20 11/04/16 13:00 BP 142/80 11/04/16 13:42 Pulse Ox 96 11/04/16 13:00 - Labs Result Diagrams: 11/04/16 06:29 11/04/16 06:29 Labs: Laboratory Results - last 24 hr 11/04/16 11/04/16 11/04/16 06:29 08:22 11:32 WBC 14.0 H RBC 4.72 Hgb 11.5 Hct 37.1 MCV 78.7 L MCH 24.4 L MCHC 31.0 L RDW 13.8 Plt Count 394 MPV 9.4 Neut % (Auto) 70.0 Lymph % (Auto) 14.2 L [place] % (Auto) 14.7 H Eos % (Auto) 0.4 Baso % (Auto) 0.7 Neut # 9.8 H Lymph # 2.0 [place] # 2.1 H Eos # 0.1 Baso # 0.1 Sodium 138 Potassium 3.8 Chloride 101 Carbon Dioxide 26 Anion Gap 14 BUN 10 Creatinine 0.5 L Est GFR ( Amer) > 60 Est GFR (Non-Af Amer) > 60 POC Glucose (mg/dL) 104 100 Random Glucose 100 Hemoglobin A1c 6.6 H Calcium 12.6 H Total Bilirubin 0.2 AST 84 H ALT 43 Alkaline Phosphatase 60 Total Protein 6.4 Albumin 3.3 L Globulin 3.1 Albumin/Globulin Ratio 1.1 25-OH Vitamin D Total 16.5 L Assessment & Plan - Assessment and Plan (Free Text) Assessment: Hypercalcemia Multiple lung masses h/o smoking A/P Overall findings are suggestive of a malignant process in lungs resulting in hypercalcemia (via PTH related peptide). Clinical presentation suggests primary lung mass with metastases to bilateral lungs. Will need complete staging work up with CT A/P, bone scan and brain imaging (MRI ). F/U blood work sent including PTH, PTHrp etc. Continue IV fluids. Will give her a dose of Pamidronate 60 mg IV infusion. Continue to monitor calcium levels daily. Can consider calcitonin if it does not improve. She will need biopsy of lung mass to confirm diagnosis. Will follow up with pulmonary/ IR for that. The mass may be more accessible via bronchoscopy. Check CEA. Current findings and management with discussed with patient and her family ( daughter) and all their questions were answered. Thank you for the consult Maxwell Esposito MD - Date & Time Date: 11/04/16 Time: 16:27
[2016-11-04] MEDS ORDERED: Iohexol 240 (50 ml) PO ONE (16:30)
--- NOTE | 2016-11-04 17:07 | US ---
HISTORY: hypercalcemia TECHNIQUE: Sonographic evaluation of the thyroid gland. COMPARISON: None. FINDINGS: RIGHT LOBE: Measures 2.3 x 1.8 x 5.0 cm. Normal echotexture and flow. Nodules: 1. Upper pole nodule, well-circumscribed cystic 1.6 x 2.5 mm. 2. Upper pole nodule cystic 6 x 9 mm. Punctate echogenic foci, colloid identified. 3. Midpole solid lesion medially well-circumscribed 6 x 10 mm. 4. Complex solid/cystic nodule midpole 5 x 7 mm. 5. Lower pole solid nodule well-circumscribed hypoechoic 8 x 11 mm. New line lower pole cystic nodule 3 x 4 mm. 6. Lower pole solid nodule 3 x 6 mm. 7. Lower pole cystic nodule 4 x 8 mm. LEFT LOBE: Measures 1.5 x 1.8 x 4.5 cm. Normal echotexture and flow. Nodules: 1. Exophytic solid nodule medially 4 x 6 mm. New line upper pole nodule solid and well-circumscribed 4 x 7 mm. 2. Well-circumscribed hypoechoic solid nodule 5 x 9 mm. 3. Midpole solid nodule 6 x 9 mm. 4. Solid ill-defined isoechoic nodule mid pole 5 x 15 mm. 5. Midpole cystic nodule 4 x 9 mm. 6. Lower pole cystic nodule 4 x 5 x 5 mm. ISTHMUS: Measures 0.6 cm. Nodules: Solid well-circumscribed isoechoic nodule 4 x 7 mm. OTHER FINDINGS: Exophytic or more likely parathyroid mass best seen on the sagittal images 8 x 13 mm. Conceivably this represents thyroid adenoma accounting for hypercalcemia. Sestamibi scan advised for further evaluation. IMPRESSION: 1. Multiple (15) thyroid nodules varying from 2 mm to 1.5 cm. 2. Exophytic nodule or possible right parathyroid mass/ adenoma followup advised. Parathyroid scan recommended in the clinical presentation of hypercalcemia with this finding.
[2016-11-04] MEDS ORDERED: Iodixanol 320 MG/ML 100 ML BOTTLE IV ONE (17:22)
--- NOTE | 2016-11-04 19:11 | CT ---
CT abdomen and pelvis with IV contrast Indication: multiple pulmonary nodules, r/o metastatic disease Technique: Contiguous axial images of the abdomen and pelvis. Coronal and Sagittal reformats generated and reviewed. Oral contrast was administered. [address] exam was performed using 1 or more of the falling dose reduction techniques: Automated exposure control, adjustment of the MAA and/or kV according to patient size, and/or use of iterative reconstruction technique. Radiation dose: Total exam DLP = 1013.86 MGy-cm. Comparison: CT abdomen and pelvis with contrast performed 03/18/15, CTA chest performed 11/03/16 Findings: Lung bases reveal bilateral pleural effusions and bibasilar consolidations. Innumerable pulmonary nodules are evident. No visible pneumothorax. Partially imaged large irregular lobulated right lung mass. Hepatomegaly. Mild hypoattenuation of the liver compatible with hepatic steatosis. 11 mm hyperdense exophytic hepatic lesion within the posterior right hepatic lobe, appears to contain calcification ; etiology unclear. Cholecystectomy. Dilated common bile duct. Pancreatic atrophy. The spleen appears unremarkable. The kidneys enhance symmetrically. Right-sided hydronephrosis with obstruction likely resulting from large pelvic mass. No left-sided hydronephrosis. The right adrenal gland appears unremarkable. Indeterminate 7 mm adrenal gland nodule, medial limb left adrenal gland. The stomach is nondistended which limits evaluation. Small to moderate hiatal hernia with evidence of gastroesophageal reflux. Bowel loops appear within normal limits of caliber without evidence of obstruction. Multiple soft tissue nodular densities are identified within the peritoneum, compatible with peritoneal carcinomatosis. Large pelvic heterogeneous mass (Approximately 16.1 cm (AP dimension) by 18.6 cm (transverse dimension) (series 3, image 138) extending to the level of the umbilicus which cannot be differentiated from the uterus / ovaries and appears consistent with malignant neoplasm. Fluid and soft tissue either contiguous to or posterior to the uterus in the region of the pouch of Severiano. Bulky adenopathy noted along bilateral pelvic sidewalls. Under distention of the urinary bladder appears grossly unremarkable. Dense atherosclerotic calcifications of the aorta. Degenerative changes of the spine. Right T11 chronic appearing posterior fracture deformity. Impression: Bilateral pleural effusions and bibasilar consolidations. Innumerable pulmonary nodules are evident. Partially imaged large irregular lobulated right lung mass. Hepatomegaly. Hepatic steatosis. 11 mm hyperdense exophytic hepatic lesion within the posterior right hepatic lobe, appears to contain calcification ; etiology unclear. Cholecystectomy. Dilated common bile duct. Pancreatic atrophy. Right-sided hydronephrosis with obstruction likely resulting from large pelvic mass. Indeterminate 7 mm adrenal gland nodule, medial limb left adrenal gland. Small to moderate hiatal hernia with evidence of gastroesophageal reflux. Multiple soft tissue nodular densities are identified within the peritoneum, compatible with peritoneal carcinomatosis. Complex and heterogeneous pelvic mass extending to the level of the umbilicus which cannot be differentiated from the uterus /ovaries and appears consistent with malignant neoplasm. Fluid and soft tissue either contiguous to or posterior to the uterus in the region of the pouch of Severiano. Bulky adenopathy noted along bilateral pelvic sidewalls.
[2016-11-04 20:06] LABS: THYROID STIMULATING HORMONE 1.55 mIU/L (0.46-4.68)
[2016-11-05] MEDS: Sodium Chloride 0.9% 1,000 ML IV SCH ×4 (05:30→23:59)
[2016-11-05] MEDS: Oxycodone/Acetaminophen 5/325 mg Tab PO PRN ×5 (06:07→23:20)
[2016-11-05 06:33] LABS: BASO # 0.1 K/uL (0.0-0.2); BASO % 0.8 % (0.0-2.0); EOS # 0.2 K/uL (0.0-0.7); EOS % 1.4 % (0.0-4.0); HEMATOCRIT 36.1 % (34.0-47.0); LYMPH # 2.6 K/uL (1.0-4.3); LYMPH % 17.6 % (20.0-40.0); MEAN CELL VOLUME 78.3 fL (81.0-99.0); MEAN CORPUSCULAR HEMOGLOBIN 24.8 pg (27.0-31.0); MEAN CORPUSCULAR HGB CONC 31.7 g/dL (33.0-37.0); MEAN PLATELET VOLUME 9.2 fL (7.2-11.7); MONO # 2.3 K/uL (0.0-0.8); MONO % 15.7 % (0.0-10.0); RED CELL DISTRIBUTION WIDTH 13.7 % (11.5-14.5); WHITE BLOOD COUNT 14.7 K/uL (4.8-10.8)
[2016-11-05 06:41] LABS: CHLORIDE 99 mmol/L (98-107); SODIUM 133 mmol/L (132-148)
[2016-11-05 06:42] LABS: POTASSIUM 3.8 mmol/L (3.6-5.2)
[2016-11-05 06:43] LABS: GFR AFRICAN-AMERICAN > 60
[2016-11-05 06:44] LABS: ALB/GLOB RATIO 1.1 (1.0-2.1); ALKALINE PHOSPHATASE 63 U/L (38-126); ALT/SGPT 37 U/L (9-52); AST/SGOT 72 U/L (14-36); BILIRUBIN,TOTAL 0.5 mg/dL (0.2-1.3); BLOOD UREA NITROGEN 11 mg/dL (7-17); CARBON DIOXIDE 28 mmol/L (22-30); GLUCOSE,RANDOM 82 mg/dL (65-105); PHOSPHOROUS 3.1 mg/dL (2.5-4.5)
[2016-11-05 06:45] LABS: CALCIUM 12.5 mg/dl (8.6-10.4); MAGNESIUM 1.7 mg/dL (1.6-2.3)
[2016-11-05 07:14] LABS: CARCINOEMBRYONIC ANTIGEN < 0.3 ng/mL (0-3.0)
[2016-11-05] MEDS: Metoprolol Succinate 50 mg XL Tab PO SCH (10:11)
[2016-11-05] MEDS: Pantoprazole 40 mg EC Tab PO SCH (10:11)
--- NOTE | 2016-11-05 12:22 | CP.PCM.PN ---
<Gabby Salgado - Last Filed: 11/05/16 12:19> Subjective - Date & Time of Evaluation Date of Evaluation: 11/05/16 Time of Evaluation: 08:30 - Subjective Subjective: Internal medicine progress note for Hospitalist service- Gabby Salgado, PGY-1 Pt S & E at bedside with daughter in attendance/translating. Pt comfortable overnight, lower abdominal/pevlic pain well controlled with oral analgesics. Pt able to eat. Denies N/V/F/C, SOB, CP. Pt has not had BM in a few days, pt uses Dulcolax at home due to chronic constipation. Objective - Vital Signs/Intake and Output Vital Signs (last 24 hours): Temp Pulse Resp BP Pulse Ox 98.1 F 91 H 22 146/86 95 11/05/16 07:39 11/05/16 07:39 11/05/16 07:39 11/05/16 10:12 11/05/16 07:39 Intake and Output: 11/05/16 11/05/16 06:59 18:59 Intake Total 600 800 Output Total 1500 Balance 600 -700 - Medications Medications: Current Medications Amlodipine Besylate (Norvasc) 10 mg PO DAILY [facility] Last Admin: 11/05/16 10:11 Dose: 10 mg Docusate Sodium (Colace) 100 mg PO BID [facility] Last Admin: 11/05/16 10:11 Dose: 100 mg Furosemide (Lasix) 20 mg IVP DAILY [facility] Last Admin: 11/05/16 10:12 Dose: 20 mg Heparin Sodium (Porcine) (Heparin) 5,000 units SC Q8 [facility] Last Admin: 11/05/16 05:53 Dose: 5,000 units Sodium Chloride (Sodium Chloride 0.9%) 1,000 mls @ 125 mls/hr IV .Q8H [facility] Last Admin: 11/05/16 11:19 Dose: 125 mls/hr Isosorbide Mononitrate (Imdur) 30 mg PO DAILY [facility] Last Admin: 11/05/16 10:11 Dose: 30 mg Metoprolol Succinate (Toprol Xl) 50 mg PO DAILY [facility] Last Admin: 11/05/16 10:11 Dose: 50 mg Oxycodone/Acetaminophen (Percocet 5/325 Mg Tab) 1 tab PO Q4H PRN PRN Reason: Pain, moderate (4-7) Stop: 11/07/16 14:38 Last Admin: 11/05/16 11:16 Dose: 1 tab Pantoprazole Sodium (Protonix Ec Tab) 40 mg PO DAILY [facility] Last Admin: 11/05/16 10:11 Dose: 40 mg Polyethylene Glycol (Miralax) 17 gm PO DAILY [facility] Rosuvastatin Calcium (Crestor) 5 mg PO HS [facility] Last Admin: 11/04/16 21:52 Dose: 5 mg - Labs Labs: 11/05/16 06:21 11/05/16 06:21 PT 12.8 SECONDS (9.7-12.2) H 11/03/16 16:53 INR 1.1 11/03/16 16:53 APTT 28 SECONDS (21-34) D 11/03/16 16:53 - Constitutional Appears: Non-toxic, No Acute Distress - Head Exam Head Exam: ATRAUMATIC, NORMAL INSPECTION, NORMOCEPHALIC - Eye Exam Eye Exam: EOMI, Normal appearance, PERRL Pupil Exam: NORMAL ACCOMODATION, PERRL - ENT Exam ENT Exam: Mucous Membranes Moist, Normal Exam - Neck Exam Neck Exam: Full ROM, Normal Inspection - Respiratory Exam Respiratory Exam: Clear to Ausculation Bilateral, NORMAL BREATHING PATTERN. absent: Decreased Breath Sounds, Rales, Rhonchi, Wheezes, Respiratory Distress - Cardiovascular Exam Cardiovascular Exam: Tachycardia, +S1, +S2 - GI/Abdominal Exam GI & Abdominal Exam: Soft, Tenderness (Mild, over lower abdomen), Normal Bowel Sounds. absent: Distended, Firm, Guarding, Rigid - Extremities Exam Extremities Exam: Full ROM, Normal Inspection. absent: Pedal Edema - Back Exam Back Exam: Full ROM, NORMAL INSPECTION. absent: paraspinal tenderness, tenderness - Neurological Exam Neurological Exam: Alert, Awake, CN II-XII Intact, Oriented x3 - Psychiatric Exam Psychiatric exam: Normal Affect, Normal Mood - Skin Skin Exam: Dry, Intact, Normal Color, Warm Assessment and Plan - Assessment and Plan (Free Text) Assessment: SIRS: Leukocytosis 14.7 from 14 Pt slightly tachycardic in 90's Pt afebrile Hypercalcemia: Ca2+ 12.5 from 12.6 NS IVF at 125 cc/hr Lasix 20 mg IV qd FT4 1.48 TSH 1.55 PTH levels pending PTH related peptide levels pending EKG 11/04 w/sinus tachycardia- official read pending EKG 11/03 - normal QT interval FU EKG on 11/05 Thryoid ultrasound w/1. Multiple (15) thyroid nodules varying from 2 mm to 1.5 cm. 2. Exophytic nodule or possible right parathyroid mass/ adenoma followup advised. Parathyroid scan recommended in the clinical presentation of hypercalcemia with this finding. Chest CT - innumerable bilateral pulmonary masses; large 8.2 x 6.2 cm central mass with irregular contours abutting/encasing branches of the pulmonary artery ; small right sided pleural effusion; consistent with metastatic disease; mediastinal adenopathy; 11 mm hepatic lesion within the right hepatic lobe; no pulmonary embolus evident (please see full report) Onc recs: Need complete staging W/U w/CT A/P, bone scan, brain MRI, cont IVF, Pamidronate 60 mg IV infusion. Continue to monitor calcium levels daily. Can consider calcitonin if it does not improve. She will need biopsy of lung mass to confirm diagnosis. Will follow up with pulmonary/ IR for that. The mass may be more accessible via bronchoscopy. Check CEA <0.3 CA- 125 ag high at 305 FU bone scan Pulmonary Masses: Chest CT - innumerable bilateral pulmonary masses; large 8.2 x 6.2 cm central mass with irregular contours abutting/encasing branches of the pulmonary artery ; small right sided pleural effusion; consistent with metastatic disease; mediastinal adenopathy; 11 mm hepatic lesion within the right hepatic lobe; no pulmonary embolus evident (please see full report) Onc recs as above Elevated D-Dimer: D-dimer [address] - no pulmonary embolus (please see full report) FU Doppler U/S of LE- pending Uterine fibroids: Abd/pelvis U/S: enlarged, rounded at the fundus, bulky and in homogenous uterus measuring 10.8 x 7.9 x 7.7cm. Fibroid mass at posterior aspect of uterus measuring 6.5 x 5.3 x 5.2cm (please see full report). Percocet 5/325 mg po q4h prn for pain Station Master consulted- Katie Constipation: Likely due to hypercalcemia Cont Colace 100 mg po qd Started Miralax daily HTN: Norvasc 10 mg po qd Toprol 50 mg po qd Coronary Artery Disease: Crestor 5 mg po hs Imdur 30 mg po qd Prophylactic Measures: GI: Protonix 40 mg po qd DVT: Heparin 5000 units sc q8h scds held due to elevated d-dimer pending lower extremity venous dopplers Dispo Cont pain mgmt FU CA work up FU Station Master recs FU Onc recs May need Station Master Onc Had conversation about probable CA diagnosis with patient and 2 family members in attendance this AM Dw attending <Opal Woodward V - Last Filed: 11/05/16 17:47> Objective - Vital Signs/Intake and Output Vital Signs (last 24 hours): Temp Pulse Resp BP Pulse Ox 97.9 F 89 22 146/86 95 11/05/16 17:00 11/05/16 08:00 11/05/16 07:39 11/05/16 10:12 11/05/16 07:39 Intake and Output: 11/05/16 11/05/16 06:59 18:59 Intake Total 600 800 Output Total 1500 Balance 600 -700 - Medications Medications: Current Medications Amlodipine Besylate (Norvasc) 10 mg PO DAILY [facility] Last Admin: 11/05/16 10:11 Dose: 10 mg Docusate Sodium (Colace) 100 mg PO BID [facility] Last Admin: 11/05/16 10:11 Dose: 100 mg Furosemide (Lasix) 20 mg IVP DAILY [facility] Last Admin: 11/05/16 10:12 Dose: 20 mg Heparin Sodium (Porcine) (Heparin) 5,000 units SC Q8 [facility] Last Admin: 11/05/16 13:41 Dose: 5,000 units Sodium Chloride (Sodium Chloride 0.9%) 1,000 mls @ 125 mls/hr IV .Q8H [facility] Last Admin: 11/05/16 11:19 Dose: 125 mls/hr Isosorbide Mononitrate (Imdur) 30 mg PO DAILY [facility] Last Admin: 11/05/16 10:11 Dose: 30 mg Metoprolol Succinate (Toprol Xl) 50 mg PO DAILY [facility] Last Admin: 11/05/16 10:11 Dose: 50 mg Oxycodone/Acetaminophen (Percocet 5/325 Mg Tab) 1 tab PO Q4H PRN PRN Reason: Pain, moderate (4-7) Stop: 11/07/16 14:38 Last Admin: 11/05/16 15:15 Dose: 1 tab Pantoprazole Sodium (Protonix Ec Tab) 40 mg PO DAILY [facility] Last Admin: 11/05/16 10:11 Dose: 40 mg Polyethylene Glycol (Miralax) 17 gm PO DAILY [facility] Last Admin: 11/05/16 13:41 Dose: 17 gm Rosuvastatin Calcium (Crestor) 5 mg PO HS [facility] Last Admin: 11/04/16 21:52 Dose: 5 mg - Labs Labs: 11/05/16 06:21 11/05/16 06:21 PT 12.8 SECONDS (9.7-12.2) H 11/03/16 16:53 INR 1.1 11/03/16 16:53 APTT 28 SECONDS (21-34) D 11/03/16 16:53 Attending/Attestation - Attestation I have personally seen and examined this patient.: Yes I have fully participated in the care of the patient.: Yes I have reviewed all pertinent clinical information, including history, physical exam and plan: Yes Notes (Text): Patient seen, examined, and case discussed with day-time resident. Patient seen at bedside with 2 daughters. 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 Marker for CA 125 elevated. Patient is pending workup for hypercalcemia at this time including PTHrp, intact PTH, and Vitamin D. Patient's calcium remains high. Ordered for follow- up EKG in the morning. Ob-YARD ASSISTANT consult. Patient is pending bone scan. Discussed thyroid US result regarding nodules, awaiting PTH level prior to ordering Setambi scan. F/u heme-onc further recommendations Assessment/Plan SIRS: WBC 14.7 Pt slightly tachycardic at 105 bpm Pt afebrile Hypercalcemia: Ca2+ 12.5 NS IVF 125 cc/hr Lasix 20 mg IV qd TSH, Free T4 pending PTH levels pending PTH related peptide levels pending EKG 11/04 pending EKG 11/03 - normal QT interval Thryoid ultrasound: Multiple (15) thyroid nodules varying from 2 mm to 1.5 cm. 2. Exophytic nodule or possible right parathyroid mass/ adenoma followup advised. Parathyroid scan recommended in the clinical presentation of hypercalcemia with this finding. Chest CT - innumerable bilateral pulmonary masses; large 8.2 x 6.2 cm central mass with irregular contours abutting/encasing branches of the pulmonary artery ; small right sided pleural effusion; consistent with metastatic disease; mediastinal adenopathy; 11 mm hepatic lesion within the right hepatic lobe; no pulmonary embolus evident (please see full report) Heme/onc, Dr. Brannon, consulted. Help appreciated. As per heme/ond, pt started on pamidronate drip Possible Malignancy Chest CT (11/04) - innumerable bilateral pulmonary masses; large 8.2 x 6.2 cm central mass with irregular contours abutting/encasing branches of the pulmonary artery; small right sided pleural effusion; consistent with metastatic disease; mediastinal adenopathy; 11 mm hepatic lesion within the right hepatic lobe; no pulmonary embolus evident (please see full report) Heme/onc, Dr. Brannon, consulted. Help appreciated. CA125 elevated CT Abdomen/Pelvis (11/05): bilateral pleural effusion and bibasilar consolidations. Noduels. irregular lobulated right lung mass. Hepatomegaly. Hepatitis steatosis. 11mm hyperdense esophytic hepatic lesion wihin the posterior right hepatic lobe, cholecystectomy, dilated CBD, pancreatic atrophy, right side hydronephrosis with obstruction likely resulting from large pelvis mass, multiple soft tissue nodular densitites within peritoneum, peritonal carcinomatosis; complex, pelvis mass extending to the level of the umbilius, bulky adenopathy Elevated D-Dimer: D-dimer [address] - no pulmonary embolus (please see full report) Lower extremity venous dopplers pending Uterine fibroids: Abd/pelvis U/S: enlarged, rounded at the fundus, bulky and in homogenous uterus measuring 10.8 x 7.9 x 7.7cm. Fibroid mass at posterior aspect of uterus measuring 6.5 x 5.3 x 5.2cm (please see full report). Percocet 5/325 mg po q4h prn for pain Constipation: Likely due to hypercalcemia Colace 100 mg po qdaily Miralax daily HTN: Norvasc 10 mg po qdaily Toprol 50 mg po qdaily Coronary Artery Disease: Crestor 5 mg po hs Imdur 30 mg po qd Aspirin held on possible attempt of IR biopsy Prophylactic Measures: GI: Protonix 40 mg po qd DVT: Heparin 5000 units sc q8h, scds held due to elevated d-dimer pending lower extremity venous dopplers
[2016-11-05] MEDS: POLYETHYLENE GLYCOL 3350 17 GM/Dose PACKET PO SCH (13:41)
--- NOTE | 2016-11-05 14:16 | CT ---
PROCEDURE: CT HEAD WITH AND WITHOUT CONTRAST HISTORY: changes in vision COMPARISON: None available. TECHNIQUE: Axial computed tomography images were obtained through the head/brain with and without intravenous contrast enhancement. Contrast dose: 100 mL Visipaque 320 Radiation dose: Total exam DLP = 859.11 mGy-cm. This CT exam was performed using one or more of the following dose reduction techniques: Automated exposure control, adjustment of the mA and/or kV according to patient size, and/or use of iterative reconstruction technique. FINDINGS: HEMORRHAGE: No intracranial hemorrhage. BRAIN: No mass, mass effect or edema. Intracranial atherosclerotic calcifications. No abnormal intracranial enhancement. No atrophy or chronic microvascular ischemic changes. VENTRICLES: No hydrocephalus. CALVARIUM: Unremarkable. SINUSES: Unremarkable as visualized. No significant inflammatory changes. MASTOID AIR CELLS: Unremarkable as visualized. No mastoid effusion. OTHER FINDINGS: None. IMPRESSION: No acute findings identified. Preliminary impression was provided by virtual radiologic.
--- NOTE | 2016-11-05 17:35 | CP.PCM.CON ---
History of Present Illness - History of Present Illness History of Present Illness: 66 yearold Para6, postmenopausal states has 2 months history of pelvic pain, 1 episode of vaginal spotting in 03/2016, presents to the ED with general malaise and weakness. Patient states she has been diagnosed with uterine fibroid and being worked up for surgery by the [facility]eller. clinic. Admits to weight loss and abdominal distension. Review of Systems - Review of Systems Systems not reviewed;Unavailable: Acuity of Condition - Constitutional Constitutional: Malaise, Weight Loss, Weakness - Cardiovascular Cardiovascular: Dyspnea - Respiratory Respiratory: Dyspnea on Exertion - Gastrointestinal Gastrointestinal: As Per HPI - Reproductive: Female Reproductive:Female: As Per HPI - Menstruation Menstruation: As Per HPI Past Patient History - Infectious Disease Hx of Infectious Diseases: None - Past Medical History & Family History Past Medical History?: Yes - Past Social History Smoking Status: Former Smoker - CARDIAC Hx Cardia Arrhythmia: Yes Hx Hypercholesterolemia: Yes Hx Hypertension: Yes - PULMONARY Hx Respiratory Disorders: No - NEUROLOGICAL Hx Neurological Disorder: No - HEENT Hx HEENT Problems: No - RENAL Hx Chronic Kidney Disease: No - ENDOCRINE/METABOLIC Hx Endocrine Disorders: Yes Hx Diabetes Mellitus Type 2: Yes - HEMATOLOGICAL/ONCOLOGICAL Hx Blood Disorders: No - INTEGUMENTARY Hx Dermatological Problems: No - MUSCULOSKELETAL/RHEUMATOLOGICAL Hx Musculoskeletal Disorders: No Hx Falls: No - GASTROINTESTINAL Hx Diverticulitis: Yes - GENITOURINARY/GYNECOLOGICAL Hx Genitourinary Disorders: No Other/Comment: uterine fibroids - PSYCHIATRIC Hx Substance Use: No - SURGICAL HISTORY Hx Appendectomy: Yes Hx Cholecystectomy: Yes Hx Coronary Stent: Yes (2007) - ANESTHESIA Hx Anesthesia: Yes Hx Anesthesia Reactions: No Hx Malignant Hyperthermia: No Meds Allergies/Adverse Reactions: Allergies Allergy/AdvReac Type Severity Reaction Status Date / Time lisinopril AdvReac Verified 11/03/16 15:44 - Medications Medications: Current Medications Amlodipine Besylate (Norvasc) 10 mg PO DAILY [facility] Last Admin: 11/05/16 10:11 Dose: 10 mg Docusate Sodium (Colace) 100 mg PO BID [facility] Last Admin: 11/05/16 10:11 Dose: 100 mg Furosemide (Lasix) 20 mg IVP DAILY [facility] Last Admin: 11/05/16 10:12 Dose: 20 mg Heparin Sodium (Porcine) (Heparin) 5,000 units SC Q8 [facility] Last Admin: 11/05/16 13:41 Dose: 5,000 units Sodium Chloride (Sodium Chloride 0.9%) 1,000 mls @ 125 mls/hr IV .Q8H [facility] Last Admin: 11/05/16 11:19 Dose: 125 mls/hr Isosorbide Mononitrate (Imdur) 30 mg PO DAILY [facility] Last Admin: 11/05/16 10:11 Dose: 30 mg Metoprolol Succinate (Toprol Xl) 50 mg PO DAILY [facility] Last Admin: 11/05/16 10:11 Dose: 50 mg Oxycodone/Acetaminophen (Percocet 5/325 Mg Tab) 1 tab PO Q4H PRN PRN Reason: Pain, moderate (4-7) Stop: 11/07/16 14:38 Last Admin: 11/05/16 15:15 Dose: 1 tab Pantoprazole Sodium (Protonix Ec Tab) 40 mg PO DAILY [facility] Last Admin: 11/05/16 10:11 Dose: 40 mg Polyethylene Glycol (Miralax) 17 gm PO DAILY [facility] Last Admin: 11/05/16 13:41 Dose: 17 gm Rosuvastatin Calcium (Crestor) 5 mg PO HS [facility] Last Admin: 11/04/16 21:52 Dose: 5 mg Physical Exam - Constitutional Appears: Chronically Ill - GI/Abdominal Exam GI & Abdominal Exam: Normal Bowel Sounds, Organomegaly Additional comments: Firm abdominal mass, tender to palpation arising from pelvis to level of umbilicus. Results - Vital Signs Recent Vital Signs: Last Vital Signs Temp 97.9 F 11/05/16 17:00 Pulse 89 11/05/16 08:00 Resp 22 11/05/16 07:39 BP 146/86 11/05/16 10:12 Pulse Ox 95 11/05/16 07:39 - Labs Result Diagrams: 11/05/16 06:21 11/05/16 06:21 Labs: Laboratory Results - last 24 hr 11/04/16 11/04/16 11/04/16 17:50 19:19 21:42 WBC RBC Hgb Hct MCV MCH MCHC RDW Plt Count MPV Neut % (Auto) Lymph % (Auto) [place] % (Auto) Eos % (Auto) Baso % (Auto) Neut # Lymph # [place] # Eos # Baso # Sodium Potassium Chloride Carbon Dioxide Anion Gap BUN Creatinine Est GFR ( Amer) Est GFR (Non-Af Amer) POC Glucose (mg/dL) 110 113 H Random Glucose Calcium Phosphorus Magnesium Total Bilirubin AST ALT Alkaline Phosphatase Total Protein Albumin Globulin Albumin/Globulin Ratio Carcinoembryonic Ag CA 125 Antigen 305 H Free T4 1.48 TSH 3rd Generation 1.55 11/05/16 11/05/16 11/05/16 06:21 07:34 11:16 WBC 14.7 H RBC 4.61 Hgb 11.4 Hct 36.1 MCV 78.3 L MCH 24.8 L MCHC 31.7 L RDW 13.7 Plt Count 410 H MPV 9.2 Neut % (Auto) 64.5 Lymph % (Auto) 17.6 L [place] % (Auto) 15.7 H Eos % (Auto) 1.4 Baso % (Auto) 0.8 Neut # 9.5 H Lymph # 2.6 [place] # 2.3 H Eos # 0.2 Baso # 0.1 Sodium 133 Potassium 3.8 Chloride 99 Carbon Dioxide 28 Anion Gap 11 BUN 11 Creatinine 0.6 L Est GFR ( Amer) > 60 Est GFR (Non-Af Amer) > 60 POC Glucose (mg/dL) 92 95 Random Glucose 82 Calcium 12.5 H Phosphorus 3.1 Magnesium 1.7 Total Bilirubin 0.5 AST 72 H ALT 37 Alkaline Phosphatase 63 Total Protein 6.0 L Albumin 3.1 L Globulin 2.9 Albumin/Globulin Ratio 1.1 Carcinoembryonic Ag < 0.3 CA 125 Antigen Free T4 TSH 3rd Generation 11/05/16 16:19 WBC RBC Hgb Hct MCV MCH MCHC RDW Plt Count MPV Neut % (Auto) Lymph % (Auto) [place] % (Auto) Eos % (Auto) Baso % (Auto) Neut # Lymph # [place] # Eos # Baso # Sodium Potassium Chloride Carbon Dioxide Anion Gap BUN Creatinine Est GFR ( Amer) Est GFR (Non-Af Amer) POC Glucose (mg/dL) 102 Random Glucose Calcium Phosphorus Magnesium Total Bilirubin AST ALT Alkaline Phosphatase Total Protein Albumin Globulin Albumin/Globulin Ratio Carcinoembryonic Ag CA 125 Antigen Free T4 TSH 3rd Generation - Imaging and Cardiology US - abdomen Status: Pending CT scan - pelvis Status: Image reviewed by me Assessment & Plan - Assessment and Plan (Free Text) Assessment: Abdomino-Pelvic Mass with Possible Lung Metastasis and elevated CA125. Possibility of Uterine Sarcoma, possble Ovarian Neoplasia. Operative report of Laparoscopic Appendectomy did not comment on pelvic mass. Plan: Obtain Pelvic Sonogram and possible Abdomino-Pelvic MRI. Suggest Oncology consult. Will need Loan Teller. Oncolgist referral as well in a [facility]. - Date & Time Date: 11/05/16 Time: 17:46
[2016-11-06] MEDS: Oxycodone/Acetaminophen 5/325 mg Tab PO PRN (02:30)
[2016-11-06] MEDS: Sodium Chloride 0.9% 1,000 ML IV SCH ×3 (06:41→23:45)
[2016-11-06] MEDS: Pantoprazole 40 mg EC Tab PO SCH (09:07)
[2016-11-06] MEDS: Metoprolol Succinate 50 mg XL Tab PO SCH (09:07)
[2016-11-06] MEDS: POLYETHYLENE GLYCOL 3350 17 GM/Dose PACKET PO SCH (09:08)
[2016-11-06 11:29] LABS: ABG ALLEN TEST POS; DRAW SITE LRA
--- NOTE | 2016-11-06 11:39 | US ---
HISTORY: CBD evaluation COMPARISON: CT of the abdomen and pelvis with contrast performed 11/04/16 TECHNIQUE: Sonographic evaluation of the abdomen. FINDINGS: Examination markedly limited due to patient condition and discomfort. LIVER: Measures 14.3 cm in sagittal dimension. Heterogeneous echogenic liver may be seen in setting of hepatic parenchymal disease or fatty infiltration. Nodular hepatic contour. Perihepatic ascites. The main portal vein appears patent with normal directional flow. No intrahepatic bile duct dilatation. GALLBLADDER: Cholecystectomy. COMMON BILE DUCT: Measures 1.0 cm. PANCREAS: Not well visualized. RIGHT KIDNEY: Measures 13.0 x 6.5 x 5.1 cm. Hydronephrosis. No obstructing calculus identified. LEFT KIDNEY: Measures 11.3 x 7.3 x 5.4 cm. 3.8 x 3.0 x 3.3 cm hypoechoic structure measured on ultrasound is not appreciated on CT performed 11/04/16 SPLEEN: Measures approximately 11.1 cm. AORTA: Not well-visualized. IVC: Not well-visualized. OTHER FINDINGS: None. IMPRESSION: Markedly limited study due to patient condition and pain. Heterogeneous echogenic liver limits evaluation. Nodular hepatic contour. Perihepatic ascites is noted. Dilated common bile duct in the setting of cholecystectomy. Right-sided hydronephrosis. Question 3.8 cm left upper pole renal mass, however this is not identified on CT performed 2016 and is suspected artifactual. Attention on follow-up imaging suggested. Please refer to CT performed 11/04/16 for more detailed discussion due to limitations of this examination.
--- NOTE | 2016-11-06 11:55 | US ---
Indication: Abdominopelvic mass Technique: A real-time transabdominal pelvic ultrasound was performed. Comparison: CT abdomen and pelvis with contrast performed 11/04/16 Findings: Examination markedly limited by patient condition/ pain. Uterus/pelvic mass measures approximately 18.3 x 13.1 x 17.2 cm. Anteverted. Enlarged heterogeneous complex appearance . The endometrial stripe is not adequately visualized; suspected heterogeneous enlarged the endometrium measuring approximately 6.4 cm; however again this is not adequately demonstrated. Bilateral ovaries were not identified. Cervix length measures approximately 5.8 cm. Pelvic fluid noted in the region of the cul-de-sac. Impression: Suboptimal examination which was markedly limited by patient condition/ pain. Enlarged heterogeneous complex appearance of the uterus/pelvic mass which measures approximately 18.3 x 13.1 x 17.2 cm. The endometrial stripe is not adequately visualized; markedly thickened, irregular heterogeneous region measuring approximately 6.4 cm, possibly endometrium is measured. Please refer to CT performed 11/04/16 for more detailed discussion due to limitations of this examination.
--- NOTE | 2016-11-06 13:56 | CP.PCM.PN ---
<Jonnathan Watts - Last Filed: 11/06/16 15:41> Subjective - Date & Time of Evaluation Date of Evaluation: 11/06/16 Time of Evaluation: 08:00 - Subjective Subjective: PGY-1 Medicine Progress Note for Dr. Woodward Patient seen and examined at bedside. She was NPO overnight for imaging. Patient complaining of lower abdominal/pevlic pain. Pain medications were added. She is going for abdominal and pelvic ultrasound today. Still has not had BM, Dulcolax will be given. Denies fever/chills, SOB, CP, palpitations, n/v/ d. Objective - Vital Signs/Intake and Output Vital Signs (last 24 hours): Temp Pulse Resp BP Pulse Ox 98.8 F 126 H 28 H 166/88 H 91 L 11/06/16 09:00 11/06/16 09:00 11/06/16 09:00 11/06/16 09:08 11/06/16 09:00 Intake and Output: 11/06/16 11/06/16 06:59 18:59 Intake Total 1800 Output Total 1000 Balance 800 - Medications Medications: Current Medications Amlodipine Besylate (Norvasc) 10 mg PO DAILY [facility] Last Admin: 11/06/16 09:07 Dose: 10 mg Docusate Sodium (Colace) 100 mg PO BID [facility] Last Admin: 11/06/16 09:08 Dose: 100 mg Furosemide (Lasix) 20 mg IVP DAILY [facility] Last Admin: 11/06/16 09:08 Dose: 20 mg Heparin Sodium (Porcine) (Heparin) 5,000 units SC Q8 [facility] Last Admin: 11/06/16 06:37 Dose: 5,000 units Sodium Chloride (Sodium Chloride 0.9%) 1,000 mls @ 125 mls/hr IV .Q8H [facility] Last Admin: 11/06/16 06:41 Dose: 125 mls/hr Isosorbide Mononitrate (Imdur) 30 mg PO DAILY [facility] Last Admin: 11/06/16 09:07 Dose: 30 mg Metoprolol Succinate (Toprol Xl) 50 mg PO DAILY [facility] Last Admin: 11/06/16 09:07 Dose: 50 mg Morphine Sulfate (Morphine) 4 mg IVP Q4 PRN PRN Reason: Pain, severe (8-10) Last Admin: 11/06/16 11:28 Dose: 4 mg Oxycodone/Acetaminophen (Percocet 5/325 Mg Tab) 1 tab PO Q4H PRN PRN Reason: Pain, moderate (4-7) Stop: 11/07/16 14:38 Last Admin: 11/06/16 02:30 Dose: 1 tab Pantoprazole Sodium (Protonix Ec Tab) 40 mg PO DAILY [facility] Last Admin: 11/06/16 09:07 Dose: 40 mg Polyethylene Glycol (Miralax) 17 gm PO DAILY [facility] Last Admin: 11/06/16 09:08 Dose: 17 gm Rosuvastatin Calcium (Crestor) 5 mg PO HS [facility] Last Admin: 11/05/16 21:33 Dose: 5 mg - Labs Labs: 11/05/16 06:21 11/05/16 06:21 PT 12.8 SECONDS (9.7-12.2) H 11/03/16 16:53 INR 1.1 11/03/16 16:53 APTT 28 SECONDS (21-34) D 11/03/16 16:53 - Constitutional Appears: No Acute Distress - Head Exam Head Exam: ATRAUMATIC, NORMOCEPHALIC - Eye Exam Eye Exam: EOMI, Normal appearance Pupil Exam: PERRL - ENT Exam ENT Exam: Mucous Membranes Moist - Neck Exam Neck Exam: Normal Inspection - Respiratory Exam Respiratory Exam: Clear to Ausculation Bilateral, NORMAL BREATHING PATTERN - Cardiovascular Exam Cardiovascular Exam: Tachycardia, +S1, +S2 - GI/Abdominal Exam GI & Abdominal Exam: Distended, Soft, Tenderness (bilateral lower adomen), Normal Bowel Sounds. absent: Firm, Guarding, Rigid, Rebound - Extremities Exam Extremities Exam: Normal Capillary Refill - Back Exam Back Exam: absent: CVA tenderness (L), CVA tenderness (R) - Neurological Exam Neurological Exam: Alert, Awake, CN II-XII Intact, Oriented x3 - Psychiatric Exam Psychiatric exam: Normal Affect, Normal Mood - Skin Skin Exam: Dry, Intact, Normal Color, Warm Assessment and Plan - Assessment and Plan (Free Text) Plan: 1. SIRS Leukocytosis downtrending tachycardic in 120's afebrile 2. Hypercalcemia Ca2+ 9.6 NS IVF at 125 cc/hr Lasix 20 mg IV qd T4 1.48 TSH 1.55 PTH levels pending PTH related peptide levels pending Ionized Ca level pending EKG 4/14 w/sinus tachycardia- official read pending EKG 11/03 - normal QT interval Thyroid ultrasound: 1. Multiple (15) thyroid nodules varying from 2 mm to 1.5 cm. 2. Exophytic nodule or possible right parathyroid mass/ adenoma followup advised. Parathyroid scan recommended in the clinical presentation of hypercalcemia with this finding (see full report). Chest CT: innumerable bilateral pulmonary masses; large 8.2 x 6.2 cm central mass with irregular contours abutting/encasing branches of the pulmonary artery ; small right sided pleural effusion; consistent with metastatic disease; mediastinal adenopathy; 11 mm hepatic lesion within the right hepatic lobe; no pulmonary embolus evident (see full report) Onc recs: Need complete staging W/U w/CT A/P, bone scan, brain MRI, cont IVF, Pamidronate 60 mg IV infusion. Continue to monitor calcium levels daily. Can consider calcitonin if it does not improve. She will need biopsy of lung mass to confirm diagnosis. Will follow up with pulmonary/ IR for that. The mass may be more accessible via bronchoscopy. Check CEA <0.3 CA- 125 ag high at 305 F/U bone scan 3. Pulmonary Masses Chest CT: innumerable bilateral pulmonary masses; large 8.2 x 6.2 cm central mass with irregular contours abutting/encasing branches of the pulmonary artery ; small right sided pleural effusion; consistent with metastatic disease; mediastinal adenopathy; 11 mm hepatic lesion within the right hepatic lobe; no pulmonary embolus evident (please see full report) heme/onc consult, Dr. Esposito, help appreciated Pulm consult, Dr. Barnes, help appreciated f/u Bone scan 4. Elevated D-Dimer D-dimer [address]: no pulmonary embolus (please see full report) Doppler U/S of LE- pending 5. Uterine fibroids Abd/pelvis U/S: enlarged, rounded at the fundus, bulky and in homogenous uterus measuring 10.8 x 7.9 x 7.7cm. Fibroid mass at posterior aspect of uterus measuring 6.5 x 5.3 x 5.2cm (please see full report). Percocet 5/325 mg po q4h prn for pain Electrical Sign Wirer consulted, Dr. Wilson, help appreciated heme/onc consult, Dr. Esposito, help appreciated ABD US: Markedly limited study due to patient condition and pain. Heterogenous echogenic liver limits evaluation. Nodular hepatic contour with perihepatic ascites present. Dialated CBD in setting of cholecystectomy. Right-sided hydronephrosis (see full report). Pelvic US: suboptimal examination which was markedly limited by patient coniditon/pain. Enlarged heterogenous complex apearance of uterine/pelvic mass 18.3 x 13.1 x 17.2 cm. Endometrial stripe not adequately visualized, markedly thickened irregular heterogenous region measuring 6.4 cm (see full report) f/u Bone Scan 6. Constipation Likely due to hypercalcemia Colace 100 mg po qd Miralax daily Dulcolax ONCE 7. HTN Norvasc 10 mg po qd Toprol 50 mg po qd 8. Coronary Artery Disease Crestor 5 mg po hs Imdur 30 mg po qd 9. Prophylactic Measures Protonix 40 mg po qd Heparin 5000 units sc q8h scds held due to elevated d-dimer pending lower extremity venous dopplers Palliative Care Consult for goals of care <Opal Woodward V - Last Filed: 11/06/16 19:50> Objective - Vital Signs/Intake and Output Vital Signs (last 24 hours): Temp Pulse Resp BP Pulse Ox 99.8 F H 126 H 28 H 166/88 H 91 L 11/06/16 17:00 11/06/16 09:00 11/06/16 09:00 11/06/16 09:08 11/06/16 09:00 Intake and Output: 11/06/16 11/07/16 18:59 06:59 Intake Total 1800 Output Total 1000 Balance 800 - Medications Medications: Current Medications Amlodipine Besylate (Norvasc) 10 mg PO DAILY [facility] Last Admin: 11/06/16 09:07 Dose: 10 mg Docusate Sodium (Colace) 100 mg PO BID [facility] Last Admin: 11/06/16 18:05 Dose: 100 mg Furosemide (Lasix) 20 mg IVP DAILY [facility] Last Admin: 11/06/16 09:08 Dose: 20 mg Heparin Sodium (Porcine) (Heparin) 5,000 units SC Q8 [facility] Last Admin: 11/06/16 14:00 Dose: 5,000 units Sodium Chloride (Sodium Chloride 0.9%) 1,000 mls @ 125 mls/hr IV .Q8H [facility] Last Admin: 11/06/16 14:01 Dose: 125 mls/hr Isosorbide Mononitrate (Imdur) 30 mg PO DAILY [facility] Last Admin: 11/06/16 09:07 Dose: 30 mg Metoprolol Succinate (Toprol Xl) 50 mg PO DAILY [facility] Last Admin: 11/06/16 09:07 Dose: 50 mg Morphine Sulfate (Morphine) 4 mg IVP Q4 PRN PRN Reason: Pain, severe (8-10) Last Admin: 11/06/16 15:35 Dose: 4 mg Oxycodone/Acetaminophen (Percocet 5/325 Mg Tab) 2 tab PO Q4H PRN PRN Reason: Pain, moderate (4-7) Stop: 11/07/16 14:38 Pantoprazole Sodium (Protonix Ec Tab) 40 mg PO DAILY [facility] Last Admin: 11/06/16 09:07 Dose: 40 mg Polyethylene Glycol (Miralax) 17 gm PO DAILY [facility] Last Admin: 11/06/16 09:08 Dose: 17 gm Rosuvastatin Calcium (Crestor) 5 mg PO HS [facility] Last Admin: 11/05/16 21:33 Dose: 5 mg - Labs Labs: 11/06/16 15:10 11/06/16 09:49 PT 12.8 SECONDS (9.7-12.2) H 11/03/16 16:53 INR 1.1 11/03/16 16:53 APTT 28 SECONDS (21-34) D 11/03/16 16:53 Attending/Attestation - Attestation I have personally seen and examined this patient.: Yes I have fully participated in the care of the patient.: Yes I have reviewed all pertinent clinical information, including history, physical exam and plan: Yes Notes (Text): Patient seen, examined, and case discussed with day-time resident. Patient seen at bedside with 2 daughters. Discussed with daughters regarding Abdominal/Pelvic US and in conjunction with Ct Ab/pelvis, and there is a high likelihood that this is cancer related, but cannot be confirmed without tissue biopsy, unknown in terms of the primary cancer in terms of pulmonary origin or adoption services manager-onc origin. Marker for CA 125 elevated. Patient is pending workup for hypercalcemia at this time including PTHrp, intact PTH, and ionized calcium. Patient's calcium normalized today. Patient is pending bone scan. Discussed thyroid US result regarding nodules, Awaiting PTH level prior to ordering Setambi scan. I have indicated to the family, there is a high suspicion for cancer, but will not rule out other sources of hypercalcemia until those results come back hopefully tomorrow. In terms of the high suspicion for cancer, will defer to heme-onc for further recommendations Note: this morning per discussion with nursing staff, patient was very tachypnic , and tachycardic, likely due to pain, which patient indicates around the area of the pelvic mass. Patient was hypoxic, on 5 liters at 92% oxygen NC advance to nasal cannula but during the day, better pain control achieve. Will need to monitor patient's oxygen/pulm status prior to consider biopsy. Family is also aware pallativae care is consulted for goals of care discussion in terms of comfort, pain control etc. Assessment/Plan SIRS: WBC 12.2 Pt afebrile Hypercalcemia: Ca2+ 9.6 NS IVF 125 cc/hr Lasix 20 mg IV qdaily TSH, Free T4 pending PTH levels pending PTH related peptide levels pending EKG 11/04 pending EKG 11/03 - normal QT interval Thryoid ultrasound: Multiple (15) thyroid nodules varying from 2 mm to 1.5 cm. 2. Exophytic nodule or possible right parathyroid mass/ adenoma followup advised. Parathyroid scan recommended in the clinical presentation of hypercalcemia with this finding. Chest CT - innumerable bilateral pulmonary masses; large 8.2 x 6.2 cm central mass with irregular contours abutting/encasing branches of the pulmonary artery ; small right sided pleural effusion; consistent with metastatic disease; mediastinal adenopathy; 11 mm hepatic lesion within the right hepatic lobe; no pulmonary embolus evident (please see full report) Heme/onc, Dr. Brannon, consulted. Help appreciated. As per heme/ond, pt started on pamidronate IV on 11/04/[address] (11/04) - innumerable bilateral pulmonary masses; large 8.2 x 6.2 cm central mass with irregular contours abutting/encasing branches of the pulmonary artery; small right sided pleural effusion; consistent with metastatic disease; mediastinal adenopathy; 11 mm hepatic lesion within the right hepatic lobe; no pulmonary embolus evident (please see full report) Heme/onc, Dr. Brannon, consulted. Help appreciated. CA125 elevated CT Abdomen/Pelvis (11/05): bilateral pleural effusion and bibasilar consolidations. Noduels. irregular lobulated right lung mass. Hepatomegaly. Hepatitis steatosis. 11mm hyperdense esophytic hepatic lesion wihin the posterior right hepatic lobe, cholecystectomy, dilated CBD, pancreatic atrophy, right side hydronephrosis with obstruction likely resulting from large pelvis mass, multiple soft tissue nodular densitites within peritoneum, peritonal carcinomatosis; complex, pelvis mass extending to the level of the umbilius, bulky adenopathy 11/06/16 pelvic US: enlarged heterogenous complex appearance of the uterus/ pelvic mass 18.3 X13.1X17.2cm; endometrial stripe markedly thickened irregular hetergoenous region measuring 6.4 cm AB US (11/06/16): heterogenous echogenic liver limits evaluation. Nodular hepatic contour. Perihepatic ascites is noted. dilated common bile duct. right sided hydronephrosis. 3.8cm left upper pole renal mass (not seen in CT; artifactual) Elevated D-Dimer: D-dimer [address] - no pulmonary embolus (please see full report) Lower extremity venous dopplers pending Pelvic mass Abd/pelvis U/S: enlarged, rounded at the fundus, bulky and in homogenous uterus measuring 10.8 x 7.9 x 7.7cm. Fibroid mass at posterior aspect of uterus measuring 6.5 x 5.3 x 5.2cm (please see full report). 11/06/16 pelvic US: enlarged heterogenous complex appearance of the uterus/ pelvic mass 18.3 X13.1X17.2cm; endometrial stripe markedly thickened irregular hetergoenous region measuring 6.4 cm AB US (11/06/16): heterogenous echogenic liver limits evaluation. Nodular hepatic contour. Perihepatic ascites is noted. dilated common bile duct. right sided hydronephrosis. 3.8cm left upper pole renal mass (not seen in CT; artifactual) Percocet 5/325 mg po q4h prn for pain elevated CA 125 Constipation: Likely due to hypercalcemia Colace 100 mg po qdaily Miralax daily Given ducloax Monitor for BM HTN: Norvasc 10 mg po qdaily Toprol 50 mg po qdaily Coronary Artery Disease: Crestor 5 mg po hs Imdur 30 mg po qd Aspirin held on possible attempt of IR biopsy Prophylactic Measures: GI: Protonix 40 mg po qd DVT: Heparin 5000 units sc q8h, scds held due to elevated d-dimer pending lower extremity venous dopplers Morphine 4mgIV Q 4hour PRN severe pain Percocet 2 tab PO Q 4hour moderate pain
[2016-11-06 15:13] LABS: BASO # 0.1 K/uL (0.0-0.2); EOS % 0.4 % (0.0-4.0); HEMATOCRIT 32.6 % (34.0-47.0); LYMPH # 1.2 K/uL (1.0-4.3); MEAN CELL VOLUME 79.1 fL (81.0-99.0); MEAN CORPUSCULAR HEMOGLOBIN 24.5 pg (27.0-31.0); MEAN PLATELET VOLUME 9.3 fL (7.2-11.7); MONO # 1.8 K/uL (0.0-0.8); MONO % 15.1 % (0.0-10.0); WHITE BLOOD COUNT 12.2 K/uL (4.8-10.8)
[2016-11-06 15:16] LABS: CHLORIDE 105 mmol/L (98-107); POTASSIUM 3.3 mmol/L (3.6-5.2); SODIUM 136 mmol/L (132-148)
[2016-11-06 15:18] LABS: ALKALINE PHOSPHATASE 55 U/L (38-126); AST/SGOT 79 U/L (14-36); BILIRUBIN,TOTAL 0.2 mg/dL (0.2-1.3); CARBON DIOXIDE 21 mmol/L (22-30); GFR AFRICAN-AMERICAN > 60; TOTAL PROTEIN 5.2 g/dL (6.3-8.3)
[2016-11-06 15:19] LABS: ALT/SGPT 27 U/L (9-52); BLOOD UREA NITROGEN 13 mg/dL (7-17); CALCIUM 9.6 mg/dl (8.6-10.4); GLUCOSE,RANDOM 71 mg/dL (65-105); MAGNESIUM 1.5 mg/dL (1.6-2.3); PHOSPHOROUS 1.8 mg/dL (2.5-4.5)
[2016-11-06] MEDS ORDERED: Potassium Chloride 20 mEq ER Tab PO ONE (15:39)
[2016-11-06] MEDS ORDERED: Potassium Chloride 20 mEq 100 ML IVPB ONE (15:47)
[2016-11-06] MEDS ORDERED: Potassium & Sodium Phosphate PO ONE (15:48)
[2016-11-06] MEDS ORDERED: Oxycodone/Acetaminophen 5/325 mg Tab PO PRN (15:50)
[2016-11-06] MEDS ORDERED: Bisacodyl 5mg EC Tab PO ONE (18:00)
[2016-11-06] MEDS: Bisacodyl 5mg EC Tab PO ONE ×2 (18:06→18:51)
[2016-11-07 06:50] LABS: BASO # 0.1 K/uL (0.0-0.2); BASO % 0.5 % (0.0-2.0); EOS # 0.1 K/uL (0.0-0.7); EOS % 0.6 % (0.0-4.0); LYMPH % 14.9 % (20.0-40.0); MEAN CELL VOLUME 77.9 fL (81.0-99.0); MEAN CORPUSCULAR HEMOGLOBIN 24.9 pg (27.0-31.0); MEAN CORPUSCULAR HGB CONC 31.9 g/dL (33.0-37.0); MEAN PLATELET VOLUME 9.1 fL (7.2-11.7); MONO # 2.8 K/uL (0.0-0.8); MONO % 20.4 % (0.0-10.0); PLATELET COUNT 395 K/uL (130-400); WHITE BLOOD COUNT 13.7 K/uL (4.8-10.8)
[2016-11-07 06:51] LABS: CHLORIDE 101 mmol/L (98-107); POTASSIUM 4.5 mmol/L (3.6-5.2); SODIUM 135 mmol/L (132-148)
[2016-11-07 06:53] LABS: BILIRUBIN,TOTAL 0.2 mg/dL (0.2-1.3); CARBON DIOXIDE 25 mmol/L (22-30); GFR AFRICAN-AMERICAN > 60
[2016-11-07 06:54] LABS: ALB/GLOB RATIO 1.1 (1.0-2.1); ALKALINE PHOSPHATASE 63 U/L (38-126); ALT/SGPT 32 U/L (9-52); AST/SGOT 95 U/L (14-36); BLOOD UREA NITROGEN 21 mg/dL (7-17); CALCIUM 10.3 mg/dl (8.6-10.4); GLUCOSE,RANDOM 72 mg/dL (65-105); MAGNESIUM 2.3 mg/dL (1.6-2.3); TOTAL PROTEIN 5.9 g/dL (6.3-8.3)
[2016-11-07] MEDS: Sodium Chloride 0.9% 1,000 ML IV SCH ×2 (07:30→18:06)
--- NOTE | 2016-11-07 07:33 | CON ---
DATE: 11/05/2016 The patient is a 66-year-old female with a chief complaint of hypercalcemia, weakness, fatigue, tired ness. The patient found to have bilateral lung nodules . Biopsy was done and showed possible f ibroid. The patient is originally from the [facility] [place]. PHYSICAL EXAMINATION: GENERAL: The patient is awake, alert, oriented. VITAL SIGNS: Temperature 98, pulse 90. HEENT: Within normal limits. NECK: Supple. CHEST: Symmetrical. HEART: Regular. ABDOMEN: Soft. EXTREMITIES: No edema. The patient suffers from , hypercalcemia, possibly uterine malignancy. At this point, the patie nt will get oncology evaluation, possible PET scan. We will discuss possible biopsy based on the onc ology evaluation. Valerio Mcdermott MD cc: [id number] TT: 11/06/2016 08:49:34 Confirmation # [id number] Dictation # [id number]
[2016-11-07 08:56] LABS: NEUTROPHIL 75 % (50-75); TOTAL CELLS COUNTED 100
[2016-11-07] MEDS: POLYETHYLENE GLYCOL 3350 17 GM/Dose PACKET PO SCH (09:58)
[2016-11-07] MEDS: Metoprolol Succinate 50 mg XL Tab PO SCH (11:29)
[2016-11-07] MEDS: Pantoprazole 40 mg EC Tab PO SCH (11:29)
[2016-11-07] MEDS: Ferric Sodium Gluconat Complex 62.5 mg/5 ml Vial IVPB SCH (11:42)
--- NOTE | 2016-11-07 12:49 | CARD ---
APPROVED REPORT EKG Measurement Heart [id number] <Conclusion> Sinus tachycardia Low voltage QRS Nonspecific T wave abnormality Abnormal ECG
--- NOTE | 2016-11-07 13:52 | CP.PCM.CON ---
History of Present Illness - History of Present Illness History of Present Illness: Palliative consult for goals of care Requested by Jonnathan Watts DO This is a 66 yo , postmenopausal woman admitted with complaints of malaise and worsened weakens over the last 2 weeks. Patient was diagnosed with uterine fibroids and was worked up by REMEDIATION TECHNICIAN for BEN. Upon admission Ca level was elevated at 11.9. recently patient stopped her Vit D and HCTZ but the symptoms of hypercalcema had persisted. After hydration here at the hospital, Ca is normal at 10.3. Patient also admits to unwanted weight loss of 6 lb/ 4 lb, what was confirmed with patient's daughter Aysha ) The CT abd and pelvis was significant for multiple lung nodules, right lung mass and large pelvic mass which is suspicious for malignant neoplasm. The pulmonary nodules are suggestive of fibrosis. The Oncology consult is pending. Patient has complained of abdominal and lower back pain which was controlled by the Percocet PO and Morphine IV. PMH: cardiac arrhytmias, DM, HTN, uterine fibroids, chronic constipation, on Dulcolax at home Soc. 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 Hx: Unknown Review of Systems - Constitutional Constitutional: Fatigue, Malaise, Weight Loss, Weakness - EENT Eyes: absent: As Per HPI, Blind Spots, Blurred Vision, Change in Vision, Decreased Night Vision, Diplopia, Discharge, Dry Eye, Exophthalmos, Floaters, Irritation, Itchy Eyes, Loss of Peripheral Vision, Pain, Photophobia, Requires Corrective Lenses, Sees Flashes, Spots in Vision, Tunnel Vision, Other Visual Disturbances, Loss of Vision, Other Ears: absent: As Per HPI, Decreased Hearing, Ear Discharge, Ear Pain, Tinnitus, Abnormal Hearing, Disequilibrium, Dizziness, Other Nose/Mouth/Throat: absent: As Per HPI, Epistaxis, Nasal Congestion, Nasal Discharge, Nasal Obstruction, Nasal Trauma, Nose Pain, Post Nasal Drip, Sinus Pain, Sinus Pressure, Bleeding Gums, Change in Voice, Dental Pain, Dry Mouth, Dysphagia, Halitosis, Hoarsness, Lip Swelling, Mouth Lesions, Mouth Pain, Odynophagia, Sore Throat, Throat Swelling, Tongue Swelling, Facial Pain, Neck Pain, Neck Mass, Other - Breasts Breasts: absent: As Per HPI, Change in Shape, Mass, Pain, Nipple Discharge, Nipple Inversion, Skin Changes, Swelling, Other - Cardiovascular Cardiovascular: Dyspnea on Exertion - Respiratory Respiratory: Dyspnea, Dyspnea on Exertion - Gastrointestinal Gastrointestinal: Change in Bowel Habits, Change in Stool Character - Genitourinary Genitourinary: absent: As Per HPI, Change in Urinary Stream, Difficulty Urinating, Dysuria, Flank Pain, Hematuria, Pyuria, Nocturia, Urinary Incontinence, Urinary Frequency, Urinary Hesitance, Urinary Urgency, Voiding Freq/Small Amts, Freq UTI, Hx Renal/Bladder Calculi, Hx /Renal Surgery, Bladder Distension, Other - Reproductive: Female Reproductive:Female: Post Menopausal - Menstruation Menstruation: Post Menopausal - Musculoskeletal Musculoskeletal: Back Pain, Muscle Weakness, Myalgias - Integumentary Integumentary: absent: As Per HPI, Acne, Alopecia, Bleeding Lesions, Change in Hair, Change in Nails, Change in Pigmentation, Changing Lesions, Dry Skin, Erythema, Furuncle, Hirsutism, Lesions, New Lesions, Non-Healing Lesions, Photosensitivity, Pruritus, Rash, Skin Pain, Skin Ulcer, Sores, Striae, Swelling , Unusual Bruising, Wounds, Jaundice, Other - Neurological Neurological: absent: As Per HPI, Abnormal Gait, Abnormal Hearing, Abnormal Movements, Abnormal Speech, Behavioral Changes, Burning Sensations, Confusion, Convulsions, Disequilibrium, Dizziness, Numbness, Focal Weakness, Frequent Falls , Headaches, Lack of Coordination, Loss of Vision, Memory Loss, Paresthesias, Radicular Pain, Restless Legs, Sensory Deficit, Syncope, Tingling, Tremor, Vertigo, Weakness, Other Visual Disturbances, Other - Psychiatric Psychiatric: absent: As Per HPI, Abnormal Sleep Pattern, Anhedonia, Anxiety, Auditory Hallucinations, Behavioral Changes, Change in Appetite, Change in Libido, Confusion, Depression, Difficulty Concentrating, Hallucinations, Homicidal Ideation, Hopelessness, Irritability, Memory Loss, Mood Swings, Panic Attacks, Paranoia, Suicidal Ideation, Visual Hallucinations, Tactile Hallucinations, Other - Endocrine Endocrine: absent: As Per HPI, Change in Body Appearance, Change in Libido, Cold Intolorance, Deepening of Voice, Excessive Sweating, Fatigue, Flushing, Heat Intolorance, Increase in Ring/Shoe/Hat Size, Palpitations, Polydipsia, Polyphagia, Polyuria, Other - Hematologic/Lymphatic Additional comments: Hb 10.5 Past Patient History - Infectious Disease Hx of Infectious Diseases: None - Past Medical History & Family History Past Medical History?: Yes - Past Social History Smoking Status: Former Smoker - CARDIAC Hx Cardia Arrhythmia: Yes Hx Hypercholesterolemia: Yes Hx Hypertension: Yes - PULMONARY Hx Respiratory Disorders: No - NEUROLOGICAL Hx Neurological Disorder: No - HEENT Hx HEENT Problems: No - RENAL Hx Chronic Kidney Disease: No - ENDOCRINE/METABOLIC Hx Endocrine Disorders: Yes Hx Diabetes Mellitus Type 2: Yes - HEMATOLOGICAL/ONCOLOGICAL Hx Blood Disorders: No - INTEGUMENTARY Hx Dermatological Problems: No - MUSCULOSKELETAL/RHEUMATOLOGICAL Hx Musculoskeletal Disorders: No Hx Falls: No - GASTROINTESTINAL Hx Diverticulitis: Yes - GENITOURINARY/GYNECOLOGICAL Hx Genitourinary Disorders: No Other/Comment: uterine fibroids - PSYCHIATRIC Hx Substance Use: No - SURGICAL HISTORY Hx Appendectomy: Yes Hx Cholecystectomy: Yes Hx Coronary Stent: Yes (2007) - ANESTHESIA Hx Anesthesia: Yes Hx Anesthesia Reactions: No Hx Malignant Hyperthermia: No Meds Allergies/Adverse Reactions: Allergies Allergy/AdvReac Type Severity Reaction Status Date / Time lisinopril AdvReac Verified 11/03/16 15:44 - Medications Medications: Current Medications Amlodipine Besylate (Norvasc) 10 mg PO DAILY [facility] Last Admin: 11/07/16 10:00 Dose: 10 mg Docusate Sodium (Colace) 100 mg PO BID [facility] Last Admin: 11/07/16 09:58 Dose: 100 mg Ferric Sodium Gluconate Complex (Ferrlecit) 125 mg IVPB DAILY [facility] Stop: 11/10/16 11:01 Last Admin: 11/07/16 11:42 Dose: 125 mg Furosemide (Lasix) 20 mg IVP DAILY [facility] Last Admin: 11/07/16 10:00 Dose: 20 mg Heparin Sodium (Porcine) (Heparin) 5,000 units SC Q8 [facility] Last Admin: 11/07/16 07:30 Dose: 5,000 units Sodium Chloride (Sodium Chloride 0.9%) 1,000 mls @ 125 mls/hr IV .Q8H [facility] Last Admin: 11/07/16 07:30 Dose: 125 mls/hr Isosorbide Mononitrate (Imdur) 30 mg PO DAILY [facility] Last Admin: 11/07/16 10:00 Dose: 30 mg Metoprolol Succinate (Toprol Xl) 50 mg PO DAILY [facility] Last Admin: 11/07/16 11:29 Dose: 50 mg Morphine Sulfate (Morphine) 4 mg IVP Q4 PRN PRN Reason: Pain, severe (8-10) Last Admin: 11/07/16 09:58 Dose: 4 mg Oxycodone/Acetaminophen (Percocet 5/325 Mg Tab) 2 tab PO Q4H PRN PRN Reason: Pain, moderate (4-7) Stop: 11/07/16 14:38 Pantoprazole Sodium (Protonix Ec Tab) 40 mg PO DAILY [facility] Last Admin: 11/07/16 11:29 Dose: 40 mg Polyethylene Glycol (Miralax) 17 gm PO DAILY [facility] Last Admin: 11/07/16 09:58 Dose: 17 gm Rosuvastatin Calcium (Crestor) 5 mg PO HS [facility] Last Admin: 11/06/16 23:00 Dose: 5 mg Physical Exam - Constitutional Appears: Chronically Ill - Head Exam Head Exam: ATRAUMATIC - Eye Exam Eye Exam: Normal appearance, PERRL Pupil Exam: NORMAL ACCOMODATION, PERRL - ENT Exam ENT Exam: Mucous Membranes Moist, Normal Exam - Neck Exam Neck exam: Positive for: Normal Inspection - Respiratory Exam Respiratory Exam: Accessory Muscle Use, Decreased Breath Sounds, Clear to Auscultation Bilateral - Cardiovascular Exam Cardiovascular Exam: Tachycardia, REGULAR RHYTHM, +S1, +S2 - GI/Abdominal Exam GI & Abdominal Exam: Distended, Hypoactive Bowel Sounds - Rectal Exam Rectal Exam: Deferred - Exam Additional comments: Sawyer cath - Extremities Exam Extremities exam: Positive for: normal capillary refill, normal inspection, pedal pulses present - Back Exam Back exam: NORMAL INSPECTION - Neurological Exam Neurological exam: Alert, CN II-XII Intact, Oriented x3, Reflexes Normal - Psychiatric Exam Psychiatric exam: Normal Affect, Normal Mood - Skin Skin Exam: Intact, Pallor, Warm Results - Vital Signs Recent Vital Signs: Last Vital Signs Temp 98.9 F 11/07/16 00:00 Pulse 97 H 11/07/16 00:00 Resp 23 11/07/16 00:00 BP 137/82 11/07/16 10:00 Pulse Ox 94 L 11/07/16 00:00 - Labs Result Diagrams: 11/07/16 06:41 11/07/16 06:36 Labs: Laboratory Results - last 24 hr 11/06/16 11/06/16 11/06/16 09:49 15:10 16:42 WBC 12.2 H RBC 4.12 Hgb 10.1 L Hct 32.6 L MCV 79.1 L MCH 24.5 L MCHC 31.0 L RDW 14.0 Plt Count 375 MPV 9.3 Neut % (Auto) 73.5 Lymph % (Auto) 10.0 L [place] % (Auto) 15.1 H Eos % (Auto) 0.4 Baso % (Auto) 1.0 Neut # 9.0 H Lymph # 1.2 [place] # 1.8 H Eos # 0.0 Baso # 0.1 Neutrophils % (Manual) Band Neutrophils % Lymphocytes % (Manual) Monocytes % (Manual) Platelet Estimate Polychromasia Hypochromasia (manual) Microcytosis (manual) Sodium 136 Potassium 3.3 L Chloride 105 Carbon Dioxide 21 L Anion Gap 13 BUN 13 Creatinine 0.5 L Est GFR ( Amer) > 60 Est GFR (Non-Af Amer) > 60 POC Glucose (mg/dL) 99 Random Glucose 71 Calcium 9.6 Phosphorus 1.8 L Magnesium 1.5 L Total Bilirubin 0.2 AST 79 H ALT 27 Alkaline Phosphatase 55 Total Protein 5.2 L Albumin 2.6 L Globulin 2.6 Albumin/Globulin Ratio 1.0 Hepatitis A IgM Ab Negative Hep Bs Antigen Negative Hep B Core IgM Ab Negative Hepatitis C Antibody Negative 11/06/16 11/07/16 11/07/16 21:15 06:36 06:41 WBC 13.7 H RBC 4.24 Hgb 10.5 L Hct 33.0 L MCV 77.9 L MCH 24.9 L MCHC 31.9 L RDW 14.0 Plt Count 395 MPV 9.1 Neut % (Auto) 63.6 Lymph % (Auto) 14.9 L [place] % (Auto) 20.4 H Eos % (Auto) 0.6 Baso % (Auto) 0.5 Neut # 8.7 H Lymph # 2.0 [place] # 2.8 H Eos # 0.1 Baso # 0.1 Neutrophils % (Manual) 75 Band Neutrophils % 2 Lymphocytes % (Manual) 13 L Monocytes % (Manual) 10 Platelet Estimate Normal Polychromasia Slight Hypochromasia (manual) Slight Microcytosis (manual) Slight Sodium 135 Potassium 4.5 Chloride 101 Carbon Dioxide 25 Anion Gap 13 BUN 21 H Creatinine 0.7 Est GFR ( Amer) > 60 Est GFR (Non-Af Amer) > 60 POC Glucose (mg/dL) 87 Random Glucose 72 Calcium 10.3 Phosphorus Magnesium 2.3 Total Bilirubin 0.2 AST 95 H D ALT 32 Alkaline Phosphatase 63 Total Protein 5.9 L Albumin 3.0 L Globulin 2.8 Albumin/Globulin Ratio 1.1 Hepatitis A IgM Ab Hep Bs Antigen Hep B Core IgM Ab Hepatitis C Antibody 11/07/16 11/07/16 07:41 12:39 WBC RBC Hgb Hct MCV MCH MCHC RDW Plt Count MPV Neut % (Auto) Lymph % (Auto) [place] % (Auto) Eos % (Auto) Baso % (Auto) Neut # Lymph # [place] # Eos # Baso # Neutrophils % (Manual) Band Neutrophils % Lymphocytes % (Manual) Monocytes % (Manual) Platelet Estimate Polychromasia Hypochromasia (manual) Microcytosis (manual) Sodium Potassium Chloride Carbon Dioxide Anion Gap BUN Creatinine Est GFR ( Amer) Est GFR (Non-Af Amer) POC Glucose (mg/dL) 88 78 Random Glucose Calcium Phosphorus Magnesium Total Bilirubin AST ALT Alkaline Phosphatase Total Protein Albumin Globulin Albumin/Globulin Ratio Hepatitis A IgM Ab Hep Bs Antigen Hep B Core IgM Ab Hepatitis C Antibody Assessment & Plan - Assessment and Plan (Free Text) Assessment: Palliative consult Code status, Full Code. No advance directive on the chart.PPS 30% I reviewed medical records, all diagnostic studies, examined and interviewed patient in the bed,. Translation was provided by patient's daughter at bed side. patient was able to answer some questions in [place]. Goals of care discussed with patient's daughter at bed side. Patient took participation in discussion. Patient is alert, oriented X 3, examined in bed with Venturi mask on looking in mild respiratory distress. Skin is pale. Patient looks ill. Breathing gets more labored while talking. o2Sat 94 %, RR 22, HR 97. Abdomen is firm , distended, bowel sounds present, patient denies passing flatus. last BM was last , 11/01/2016. Colace on board. Patient given one Dulcolax tb. Patient assisted with food for energy saving. The daughter reports that patient swallow well soft diet and liquids, but easily gets SOB with out the Oxygen supply. Patient reports relief from lower back and abdominal pain, with Morphine. WBC 13.7, Hb 10.5, Ca 10.3. BP 141/79, HR 97, afebrile. As per daughter Aysha, patient began declining abut two months ago. Weakness and malaise were dominant symptoms, the weight loss was fallowing. Patient and the daughter seemed to be up to date with all diagnostic studies results. They were waiting to hear from the Oncologist. Patient hopes to recover well enough to be able to undergo BEN. I reviewed the CT result suggesting pulmonary fibrosis. The daughter admitted being made aware of and was anxiously awaiting the Oncologist visit to discuss treatment plan. Impression * Chronically ill woman with worsened weakness and malaise * Dyspnea on excretion * Consipation * Lower back and lower abdominal pain * Adjustment reaction with anxiety Suggestion * Would offer prune juice with each meal Re constipation * Patient may need daily Dulcolax as she is used to it at home * OOB to chair as tolerated; Patient would benefit from mobility, avoid pressure sore, further muscle weakness due to misuse, and would promote bowel motility * Soft diet and PO fluids as tolerated * Agree with current pain management Palliative care will continue to fallow up and further discuss goals of care. Code status will be discussed on next visit.Thank you for consulting palliative care .
--- NOTE | 2016-11-07 14:42 | NM ---
PROCEDURE: Whole Body Bone Scan HISTORY: multiple lung masses, rule out bone mets. COMPARISON: 11/04/2016 TECHNIQUE: Following administration of 24.7 miCu of Tc MDP multiplanar whole body images were obtained. FINDINGS: Evidence for bony metastatic disease: None. Degenerative uptake: None. Physiologic uptake: Normal physiologic activity in the kidneys. Other findings: Diffuse uptake lower abdominal, pelvic mass. Findings correspond to the large pelvic mass November 04, 2016 CT scan. IMPRESSION: No evidence of bony metastatic disease. Uptake in pelvic mass conforms to findings on recent CT scan of the abdomen and pelvis.
--- NOTE | 2016-11-07 14:44 | VASCLAB ---
PROCEDURE: Lower Extremity Venous Duplex Exam. HISTORY: Edema, Elevated d-dimer PRIORS: None. TECHNIQUE: Bilateral common femoral, femoral, popliteal and posterior tibial, peroneal and great saphenous veins were evaluated. Flow was assessed with color Doppler, compressibility, assessment of phasic flow and augmentation response. Report prepared by MICAH Monterroso FINDINGS: RIGHT: 1. Common Femoral Vein: 1.1. Compressibility - Fully compressible: Thrombus - None : Flow - Phasic: Augmentation -Normal: Reflux - None. 2. Femoral Vein: 2.1. Compressibility - Fully compressible: Thrombus - None : Flow - Phasic: Augmentation -Normal: Reflux - None. 3. Popliteal Vein: 3.1. Compressibility - Fully compressible: Thrombus - None : Flow - Phasic: Augmentation -Normal: Reflux - None. 4. Posterior Tibial Vein: 4.1. Compressibility - Fully compressible: Thrombus - None: Flow - Phasic: Augmentation -Normal: Reflux - None. 5. Peroneal Vein: 5.1. Compressibility - Fully compressible: Thrombus - None: Flow - Phasic: Augmentation -Normal: Reflux - None. 6. Great Saphenous Vein: 6.1. Compressibility - Fully compressible: Thrombus - None: Flow - Phasic: Augmentation - Normal: Reflux - None. LEFT: 1. Common Femoral Vein: 1.1. Compressibility - Fully compressible: Thrombus - None: Flow - Phasic: Augmentation -Normal: Reflux - None. 2. Femoral Vein: 2.1. Compressibility - Fully compressible: Thrombus - None: Flow - Phasic: Augmentation -Normal: Reflux - None. 3. Popliteal Vein: 3.1. Compressibility - Fully compressible: Thrombus - None : Flow - Phasic: Augmentation -Normal: Reflux - None. 4. Posterior Tibial Vein: 4.1. Compressibility - Fully compressible: Thrombus - None: Flow - Phasic: Augmentation -Normal: Reflux - None. 5. Peroneal Vein: 5.1. Compressibility - Fully compressible: Thrombus - None: Flow - Phasic: Augmentation -Normal: Reflux - None. 6. Great Saphenous Vein: 6.1. Compressibility - Fully compressible: Thrombus - None: Flow - Phasic: Augmentation - Normal: Reflux - None. OTHER FINDINGS: Right: None significant. Left: None significant. IMPRESSION: Right: No evidence of deep or superficial vein thrombosis of the right lower extremity. Normal valve function noted of the right side. Left: No evidence of deep or superficial vein thrombosis of the left lower extremity. Normal valve function noted of the left side.
--- NOTE | 2016-11-07 17:04 | CP.PCM.PN ---
<Rhett Guo - Last Filed: 11/07/16 16:52> Subjective - Date & Time of Evaluation Date of Evaluation: 11/07/16 Time of Evaluation: 07:11 - Subjective Subjective: Pt seen and examined. Pt reports that she is breathing well on venti mask. Pt reports that she feels weak. Pt denies fever, chills, chest pain, shortness of breath, nausea, and vomiting. Objective - Vital Signs/Intake and Output Vital Signs (last 24 hours): Temp Pulse Resp BP Pulse Ox 98.9 F 97 H 23 137/82 94 L 11/07/16 00:00 11/07/16 00:00 11/07/16 00:00 11/07/16 10:00 11/07/16 00:00 Intake and Output: 11/07/16 11/07/16 06:59 18:59 Intake Total 1325 Output Total 0 Balance 1325 - Medications Medications: Current Medications Amlodipine Besylate (Norvasc) 10 mg PO DAILY [facility] Last Admin: 11/07/16 10:00 Dose: 10 mg Docusate Sodium (Colace) 100 mg PO BID [facility] Last Admin: 11/07/16 09:58 Dose: 100 mg Ferric Sodium Gluconate Complex (Ferrlecit) 125 mg IVPB DAILY [facility] Stop: 11/10/16 11:01 Last Admin: 11/07/16 11:42 Dose: 125 mg Furosemide (Lasix) 20 mg IVP DAILY [facility] Last Admin: 11/07/16 10:00 Dose: 20 mg Heparin Sodium (Porcine) (Heparin) 5,000 units SC Q8 [facility] Last Admin: 11/07/16 14:39 Dose: 5,000 units Sodium Chloride (Sodium Chloride 0.9%) 1,000 mls @ 125 mls/hr IV .Q8H [facility] Last Admin: 11/07/16 07:30 Dose: 125 mls/hr Isosorbide Mononitrate (Imdur) 30 mg PO DAILY [facility] Last Admin: 11/07/16 10:00 Dose: 30 mg Metoprolol Succinate (Toprol Xl) 50 mg PO DAILY [facility] Last Admin: 11/07/16 11:29 Dose: 50 mg Morphine Sulfate (Morphine) 4 mg IVP Q4 PRN PRN Reason: Pain, severe (8-10) Last Admin: 11/07/16 14:34 Dose: 4 mg Pantoprazole Sodium (Protonix Ec Tab) 40 mg PO DAILY [facility] Last Admin: 11/07/16 11:29 Dose: 40 mg Polyethylene Glycol (Miralax) 17 gm PO DAILY [facility] Last Admin: 11/07/16 09:58 Dose: 17 gm Rosuvastatin Calcium (Crestor) 5 mg PO HS [facility] Last Admin: 11/06/16 23:00 Dose: 5 mg - Labs Labs: 11/07/16 06:41 11/07/16 06:36 PT 12.8 SECONDS (9.7-12.2) H 11/03/16 16:53 INR 1.1 11/03/16 16:53 APTT 28 SECONDS (21-34) D 11/03/16 16:53 - Constitutional Appears: No Acute Distress - Head Exam Head Exam: ATRAUMATIC, NORMOCEPHALIC - Eye Exam Eye Exam: EOMI, PERRL - ENT Exam ENT Exam: Mucous Membranes Moist. absent: Mucous Membranes Dry - Neck Exam Neck Exam: Full ROM - Respiratory Exam Respiratory Exam: Clear to Ausculation Bilateral. absent: Rales, Rhonchi, Wheezes - Cardiovascular Exam Cardiovascular Exam: +S1, +S2. absent: Gallop, Rubs, Murmur - GI/Abdominal Exam GI & Abdominal Exam: Distended, Soft, Tenderness. absent: Guarding, Rigid, Rebound Additional comments: Lower abdominal tenderness - Extremities Exam Extremities Exam: Full ROM. absent: Pedal Edema - Neurological Exam Neurological Exam: Alert, Awake, Oriented x3 - Psychiatric Exam Psychiatric exam: Normal Affect, Normal Mood - Skin Skin Exam: Normal Color, Warm Assessment and Plan - Assessment and Plan (Free Text) Assessment: SIRS WBC - 13.7 tachycardic - HR up to 126 Tmax 99.8 Hypercalcemia Resolved Ca2+ 10.3 NS IVF at 125 cc/hr Lasix 20 mg IV qd T4 1.48 TSH 1.55 PTH levels pending PTH related peptide levels pending Ionized Ca level pending EKG 11/04 w/sinus tachycardia- official read pending EKG 11/03 - normal QT interval Thyroid ultrasound: 1. Multiple (15) thyroid nodules varying from 2 mm to 1.5 cm. 2. Exophytic nodule or possible right parathyroid mass/ adenoma followup advised. Parathyroid scan recommended in the clinical presentation of hypercalcemia with this finding (see full report). Chest CT: innumerable bilateral pulmonary masses; large 8.2 x 6.2 cm central mass with irregular contours abutting/encasing branches of the pulmonary artery ; small right sided pleural effusion; consistent with metastatic disease; mediastinal adenopathy; 11 mm hepatic lesion within the right hepatic lobe; no pulmonary embolus evident (see full report) CEA <0.3 CA- [address]: innumerable bilateral pulmonary masses; large 8.2 x 6.2 cm central mass with irregular contours abutting/encasing branches of the pulmonary artery ; small right sided pleural effusion; consistent with metastatic disease; mediastinal adenopathy; 11 mm hepatic lesion within the right hepatic lobe; no pulmonary embolus evident (please see full report) heme/onc consult, Dr. Esposito, help appreciated Pulm consult, Dr. Barnes, help appreciated Speak with pulm about possible lung biospy Uterine fibroids Abd/pelvis U/S: enlarged, rounded at the fundus, bulky and in homogenous uterus measuring 10.8 x 7.9 x 7.7cm. Fibroid mass at posterior aspect of uterus measuring 6.5 x 5.3 x 5.2cm (please see full report). Percocet 5/325 mg po q4h prn for pain Drilling Plant Operator consulted, Dr. Wilson, help appreciated heme/onc consult, Dr. Esposito, help appreciated ABD US: Markedly limited study due to patient condition and pain. Heterogenous echogenic liver limits evaluation. Nodular hepatic contour with perihepatic ascites present. Dialated CBD in setting of cholecystectomy. Right-sided hydronephrosis (see full report). Pelvic US: suboptimal examination which was markedly limited by patient coniditon/pain. Enlarged heterogenous complex apearance of uterine/pelvic mass 18.3 x 13.1 x 17.2 cm. Endometrial stripe not adequately visualized, markedly thickened irregular heterogenous region measuring 6.4 cm (see full report) Elevated D-Dimer D-dimer [address]: no pulmonary embolus (please see full report) Doppler U/S of LE- no evidence of b/l DVTs (please see full report) Constipation Likely due to hypercalcemia Colace 100 mg po qd Miralax daily 7. HTN Norvasc 10 mg po qd Toprol 50 mg po qd 8. Coronary Artery Disease Crestor 5 mg po hs Imdur 30 mg po qd 9. Prophylactic Measures GI: Protonix 40 mg po qd DVT: Heparin 5000 units sc q8h, SCDs <MiraPeter H - Last Filed: 11/08/16 09:05> Objective - Vital Signs/Intake and Output Vital Signs (last 24 hours): Temp Pulse Resp BP Pulse Ox 98.7 F 97 H 20 148/79 94 L 11/08/16 04:00 11/08/16 04:00 11/08/16 04:00 11/08/16 04:00 11/08/16 04:00 Intake and Output: 11/08/16 11/08/16 06:59 18:59 Intake Total 1200 Output Total 700 Balance 500 - Medications Medications: Current Medications Amlodipine Besylate (Norvasc) 10 mg PO DAILY [facility] Last Admin: 11/07/16 10:00 Dose: 10 mg Docusate Sodium (Colace) 100 mg PO BID [facility] Last Admin: 11/07/16 18:06 Dose: 100 mg Ferric Sodium Gluconate Complex (Ferrlecit) 125 mg IVPB DAILY [facility] Stop: 11/10/16 11:01 Last Admin: 11/07/16 11:42 Dose: 125 mg Furosemide (Lasix) 20 mg IVP DAILY [facility] Last Admin: 11/07/16 10:00 Dose: 20 mg Heparin Sodium (Porcine) (Heparin) 5,000 units SC Q8 [facility] Last Admin: 11/08/16 06:55 Dose: 5,000 units Sodium Chloride (Sodium Chloride 0.9%) 1,000 mls @ 125 mls/hr IV .Q8H [facility] Last Admin: 11/08/16 06:59 Dose: 125 mls/hr Isosorbide Mononitrate (Imdur) 30 mg PO DAILY [facility] Last Admin: 11/07/16 10:00 Dose: 30 mg Metoprolol Succinate (Toprol Xl) 50 mg PO DAILY [facility] Last Admin: 11/07/16 11:29 Dose: 50 mg Morphine Sulfate (Morphine) 4 mg IVP Q4 PRN PRN Reason: Pain, severe (8-10) Last Admin: 11/08/16 08:32 Dose: 4 mg Pantoprazole Sodium (Protonix Ec Tab) 40 mg PO DAILY [facility] Last Admin: 11/07/16 11:29 Dose: 40 mg Polyethylene Glycol (Miralax) 17 gm PO DAILY [facility] Last Admin: 11/07/16 09:58 Dose: 17 gm Rosuvastatin Calcium (Crestor) 5 mg PO HS [facility] Last Admin: 11/07/16 21:48 Dose: 5 mg - Labs Labs: 11/08/16 06:40 11/08/16 06:40 PT 12.8 SECONDS (9.7-12.2) H 11/03/16 16:53 INR 1.1 11/03/16 16:53 APTT 28 SECONDS (21-34) D 11/03/16 16:53 Attending/Attestation - Attestation I have personally seen and examined this patient.: Yes I have fully participated in the care of the patient.: Yes I have reviewed all pertinent clinical information, including history, physical exam and plan: Yes Notes (Text): 11/08/16 09:00 Medical Attending: Patient was seen and examined by me. Agree with the above note by the resident. Family members were present at bedside and they helped with translation and descion making. This is my first time meeting patient and so we had an extra long conversation with the family and patient. I then also reviewed previous notes and discussed with resident. Patient has likely ovarian or a uterine malignancy. A serum CA 125 was done and it was very elevated. Imaging shows a very large abdominal mass extending to the umbilicus. Imaging of the chest also shows areas of the lung concerning for malignancy as well. There are lymphnodes enlargments reported on imaging. Discussed with family and explained to them them that currently there is not a PACKAGING ENGINEER/ONC service at . Also discussed with Hematology/Oncology, who has suggested that we need biopsy of lung mass via either IR or pulmonology. thank you Satya Meyers
--- NOTE | 2016-11-07 19:30 | CP.PCM.PN ---
Subjective - Date & Time of Evaluation Date of Evaluation: 11/07/16 Time of Evaluation: 19:26 - Subjective Subjective: She remains on face mask. Has some shortness of breath. Complains of weakness. Her pain is controlled. Objective - Vital Signs/Intake and Output Vital Signs (last 24 hours): Temp Pulse Resp BP Pulse Ox 97.2 F L 103 H 16 124/77 93 L 11/07/16 16:00 11/07/16 16:00 11/07/16 16:00 11/07/16 16:00 11/07/16 16:00 - Medications Medications: Current Medications Amlodipine Besylate (Norvasc) 10 mg PO DAILY [facility] Last Admin: 11/07/16 10:00 Dose: 10 mg Docusate Sodium (Colace) 100 mg PO BID [facility] Last Admin: 11/07/16 18:06 Dose: 100 mg Ferric Sodium Gluconate Complex (Ferrlecit) 125 mg IVPB DAILY [facility] Stop: 11/10/16 11:01 Last Admin: 11/07/16 11:42 Dose: 125 mg Furosemide (Lasix) 20 mg IVP DAILY [facility] Last Admin: 11/07/16 10:00 Dose: 20 mg Heparin Sodium (Porcine) (Heparin) 5,000 units SC Q8 [facility] Last Admin: 11/07/16 14:39 Dose: 5,000 units Sodium Chloride (Sodium Chloride 0.9%) 1,000 mls @ 125 mls/hr IV .Q8H [facility] Last Admin: 11/07/16 18:06 Dose: 125 mls/hr Isosorbide Mononitrate (Imdur) 30 mg PO DAILY [facility] Last Admin: 11/07/16 10:00 Dose: 30 mg Metoprolol Succinate (Toprol Xl) 50 mg PO DAILY [facility] Last Admin: 11/07/16 11:29 Dose: 50 mg Morphine Sulfate (Morphine) 4 mg IVP Q4 PRN PRN Reason: Pain, severe (8-10) Last Admin: 11/07/16 18:49 Dose: 4 mg Pantoprazole Sodium (Protonix Ec Tab) 40 mg PO DAILY [facility] Last Admin: 11/07/16 11:29 Dose: 40 mg Polyethylene Glycol (Miralax) 17 gm PO DAILY [facility] Last Admin: 11/07/16 09:58 Dose: 17 gm Rosuvastatin Calcium (Crestor) 5 mg PO HS [facility] Last Admin: 11/06/16 23:00 Dose: 5 mg - Labs Labs: 11/07/16 06:41 11/07/16 06:36 PT 12.8 SECONDS (9.7-12.2) H 11/03/16 16:53 INR 1.1 11/03/16 16:53 APTT 28 SECONDS (21-34) D 11/03/16 16:53 - Head Exam Head Exam: ATRAUMATIC, NORMAL INSPECTION - Eye Exam Eye Exam: EOMI - ENT Exam ENT Exam: Mucous Membranes Dry - Respiratory Exam Additional comments: coarse breath sounds b/l - Cardiovascular Exam Cardiovascular Exam: REGULAR RHYTHM - GI/Abdominal Exam GI & Abdominal Exam: Distended, Soft. 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 s/p one dose of Pamidronate. Hypercalcemia has resolved now. Continue to monitor routinely. There is a risk of hypocalcemia which should be replaced as needed. She needs tissue diagnosis. Will arrange lung biopsy with IR vs pulmonary. Further management will depend on final diagnosis. She will be a candidate for chemotherapy (depending on diagnosis). Plan of care discussed with patient and family. Maxwell Esposito MD
[2016-11-08] MEDS: Sodium Chloride 0.9% 1,000 ML IV SCH ×3 (01:00→17:16)
[2016-11-08 06:42] LABS: BASO # 0.1 K/uL (0.0-0.2); BASO % 0.7 % (0.0-2.0); EOS # 0.1 K/uL (0.0-0.7); EOS % 0.9 % (0.0-4.0); HEMATOCRIT 32.8 % (34.0-47.0); LYMPH # 1.9 K/uL (1.0-4.3); LYMPH % 13.2 % (20.0-40.0); MEAN CELL VOLUME 77.1 fL (81.0-99.0); MEAN CORPUSCULAR HEMOGLOBIN 24.8 pg (27.0-31.0); MEAN CORPUSCULAR HGB CONC 32.2 g/dL (33.0-37.0); MEAN PLATELET VOLUME 7.8 fL (7.2-11.7); MONO # 3.3 K/uL (0.0-0.8); MONO % 22.7 % (0.0-10.0); PLATELET COUNT 432 K/uL (130-400); RED CELL DISTRIBUTION WIDTH 14.1 % (11.5-14.5); WHITE BLOOD COUNT 14.5 K/uL (4.8-10.8)
[2016-11-08 06:55] LABS: CHLORIDE 103 mmol/L (98-107); POTASSIUM 3.8 mmol/L (3.6-5.2); SODIUM 136 mmol/L (132-148)
[2016-11-08 06:57] LABS: BILIRUBIN,TOTAL 0.2 mg/dL (0.2-1.3); GFR AFRICAN-AMERICAN > 60
[2016-11-08 06:58] LABS: ALKALINE PHOSPHATASE 73 U/L (38-126); ALT/SGPT 26 U/L (9-52); AST/SGOT 82 U/L (14-36); BLOOD UREA NITROGEN 14 mg/dL (7-17); CALCIUM 9.5 mg/dl (8.6-10.4); CARBON DIOXIDE 25 mmol/L (22-30); GLUCOSE,RANDOM 91 mg/dL (65-105); PHOSPHOROUS 2.2 mg/dL (2.5-4.5); TOTAL PROTEIN 5.8 g/dL (6.3-8.3)
[2016-11-08 06:59] LABS: MAGNESIUM 2.3 mg/dL (1.6-2.3)
[2016-11-08 08:29] LABS: MYELOCYTE 1 % (0-0); NEUTROPHIL 73 % (50-75); TOTAL CELLS COUNTED 100
[2016-11-08] MEDS: POLYETHYLENE GLYCOL 3350 17 GM/Dose PACKET PO SCH (10:33)
[2016-11-08] MEDS: Ferric Sodium Gluconat Complex 62.5 mg/5 ml Vial IVPB SCH (10:34)
[2016-11-08] MEDS: Pantoprazole 40 mg EC Tab PO SCH (10:34)
[2016-11-08] MEDS: Metoprolol Succinate 50 mg XL Tab PO SCH (10:41)
[2016-11-08] MEDS: Potassium & Sodium Phosphate PO SCH ×2 (12:52→17:16)
[2016-11-08 13:13] LABS: RBC URINE 1 /hpf (0-3); URINE BILIRUBIN NEGATIVE (NEGATIVE); URINE BLOOD 1+ (NEGATIVE); URINE COLOR Straw (YELLOW); URINE GLUCOSE (UA) NORMAL (Normal); URINE KETONE NEGATIVE (NEGATIVE); URINE LEUKOCYTE ESTERASE NEG Leu/uL (Negative); URINE PROTEIN NEGATIVE (NEGATIVE); URINE UROBILINOGEN NORMAL mg/dL (0.2-1.0); WBC URINE 1 /hpf (0-5)
[2016-11-08] MEDS: Azithromycin 500 MG in Sodium Chloride 0.9% 250 ML IVPB SCH (13:28)
[2016-11-08] MEDS: Albuterol-Ipratrop 3 mg / 0.5 (3 ml) UD INH PRN ×2 (14:46→19:58)
--- NOTE | 2016-11-08 15:40 | RAD ---
HISTORY: shortness of breath COMPARISON: 11/02/2016 FINDINGS: LUNGS: Current lung volumes are more shallow than before. Nevertheless the bilateral pulmonary nodules varying in size concerning for bilateral extensive pulmonary metastatic disease are re- appreciated. An interval left pleural effusion suggested. The prior large right central mass is also renoted PLEURA: As above. No pneumothorax seen CARDIOVASCULAR: Heart size grossly normal. Aortic knob atherosclerotic vascular calcification OSSEOUS STRUCTURES: Thoracic spondylosis VISUALIZED UPPER ABDOMEN: Normal. OTHER FINDINGS: None. IMPRESSION: Right central lung mass with innumerable bilateral pulmonary metastases. Interval left pleural effusion. Interval left pleural parenchymal pathology also possible
--- NOTE | 2016-11-08 16:18 | CP.PCM.PN ---
<Rhett Guo - Last Filed: 11/08/16 16:15> Subjective - Date & Time of Evaluation Date of Evaluation: 11/08/16 Time of Evaluation: 07:53 - Subjective Subjective: Pt seen and examined. Daughters at bedside. Pt reports that she is sweating a lot today and has chills. Pt also complains of slight shortness of breath. Pt denies fever, chills, chest pain, nausea, and vomiting. Objective - Vital Signs/Intake and Output Vital Signs (last 24 hours): Temp Pulse Resp BP Pulse Ox 97.8 F 106 H 24 128/81 92 L 11/08/16 12:00 11/08/16 12:00 11/08/16 12:00 11/08/16 12:00 11/08/16 12:00 Intake and Output: 11/08/16 11/08/16 06:59 18:59 Intake Total 1200 1620 Output Total 700 150 Balance 500 1470 - Medications Medications: Current Medications Albuterol/Ipratropium (Duoneb 3 Mg/0.5 Mg (3 Ml) Ud) 3 ml INH RQ6 PRN PRN Reason: Wheezing Last Admin: 11/08/16 14:46 Dose: 3 ml Amlodipine Besylate (Norvasc) 10 mg PO DAILY [facility] Last Admin: 11/08/16 10:35 Dose: 10 mg Docusate Sodium (Colace) 100 mg PO BID [facility] Last Admin: 11/08/16 10:35 Dose: 100 mg Ferric Sodium Gluconate Complex (Ferrlecit) 125 mg IVPB DAILY [facility] Stop: 11/10/16 11:01 Last Admin: 11/08/16 10:34 Dose: 125 mg Furosemide (Lasix) 20 mg IVP DAILY [facility] Last Admin: 11/08/16 10:35 Dose: 20 mg Heparin Sodium (Porcine) (Heparin) 5,000 units SC Q8 [facility] Last Admin: 11/08/16 13:29 Dose: 5,000 units Sodium Chloride (Sodium Chloride 0.9%) 1,000 mls @ 125 mls/hr IV .Q8H [facility] Last Admin: 11/08/16 06:59 Dose: 125 mls/hr Azithromycin 500 mg/ Sodium (Chloride) 250 mls @ 250 mls/hr IVPB DAILY [facility] Last Admin: 11/08/16 13:28 Dose: 250 mls/hr Ceftriaxone Sodium 1 gm/ (Sodium Chloride) 100 mls @ 100 mls/hr IVPB Q12H [facility] Last Admin: 11/08/16 14:56 Dose: 100 mls/hr Isosorbide Mononitrate (Imdur) 30 mg PO DAILY [facility] Last Admin: 11/08/16 10:35 Dose: 30 mg Metoprolol Succinate (Toprol Xl) 50 mg PO DAILY [facility] Last Admin: 11/08/16 10:41 Dose: 50 mg Morphine Sulfate (Morphine) 4 mg IVP Q4 PRN PRN Reason: Pain, severe (8-10) Last Admin: 11/08/16 13:32 Dose: 4 mg Pantoprazole Sodium (Protonix Ec Tab) 40 mg PO DAILY [facility] Last Admin: 11/08/16 10:34 Dose: 40 mg Polyethylene Glycol (Miralax) 17 gm PO DAILY [facility] Last Admin: 11/08/16 10:33 Dose: 17 gm Potassium Phos/Sodium Phos (Neutra-Phos) 1 pkt PO TIDCC [facility] Last Admin: 11/08/16 12:52 Dose: 1 pkt Rosuvastatin Calcium (Crestor) 5 mg PO HS [facility] Last Admin: 11/07/16 21:48 Dose: 5 mg - Labs Labs: 11/08/16 06:40 11/08/16 06:40 PT 12.8 SECONDS (9.7-12.2) H 11/03/16 16:53 INR 1.1 11/03/16 16:53 APTT 28 SECONDS (21-34) D 11/03/16 16:53 - Constitutional Appears: Toxic, No Acute Distress - Head Exam Head Exam: ATRAUMATIC, NORMOCEPHALIC - Eye Exam Eye Exam: EOMI, PERRL - ENT Exam ENT Exam: Mucous Membranes Moist. absent: Mucous Membranes Dry - Respiratory Exam Respiratory Exam: Clear to Ausculation Bilateral. absent: Rhonchi, Wheezes - Cardiovascular Exam Cardiovascular Exam: Tachycardia, +S1, +S2. absent: Gallop, Rubs - GI/Abdominal Exam GI & Abdominal Exam: Distended, Soft, Tenderness. absent: Guarding, Rigid - Extremities Exam Extremities Exam: Full ROM. absent: Pedal Edema - Neurological Exam Neurological Exam: Alert, Awake, Oriented x3 - Psychiatric Exam Psychiatric exam: Normal Affect, Normal Mood - Skin Skin Exam: Normal Color, Warm Assessment and Plan - Assessment and Plan (Free Text) Assessment: SIRS WBC - 14.5 tachycardic - HR up to 108 Afebrile Hypercalcemia Resolved Likely secondary to malignancy Ca2+ 9.5 NS IVF at 125 cc/hr Lasix 20 mg IV qd T4 1.48 TSH 1.55 PTH - 2 low PTH related peptide levels pending Ionized Ca level pending EKG 11/04 w/sinus tachycardia- official read pending EKG 11/03 - normal QT interval Thyroid ultrasound: 1. Multiple (15) thyroid nodules varying from 2 mm to 1.5 cm. 2. Exophytic nodule or possible right parathyroid mass/ adenoma followup advised. Parathyroid scan recommended in the clinical presentation of hypercalcemia with this finding (see full report). Chest CT: innumerable bilateral pulmonary masses; large 8.2 x 6.2 cm central mass with irregular contours abutting/encasing branches of the pulmonary artery ; small right sided pleural effusion; consistent with metastatic disease; mediastinal adenopathy; 11 mm hepatic lesion within the right hepatic lobe; no pulmonary embolus evident (see full report) CEA <0.3 CA-125 - [address]: innumerable bilateral pulmonary masses; large 8.2 x 6.2 cm central mass with irregular contours abutting/encasing branches of the pulmonary artery ; small right sided pleural effusion; consistent with metastatic disease; mediastinal adenopathy; 11 mm hepatic lesion within the right hepatic lobe; no pulmonary embolus evident (please see full report) heme/onc consult, Dr. Esposito, help appreciated. Duonebs prn for wheezing Interventional Radiology, Dr. Rivera, consulted. Help appreciated. Plan for lung nodule biopsy nona with as per IR NPO after midnight Uterine fibroids Abd/pelvis U/S: enlarged, rounded at the fundus, bulky and in homogenous uterus measuring 10.8 x 7.9 x 7.7cm. Fibroid mass at posterior aspect of uterus measuring 6.5 x 5.3 x 5.2cm (please see full report). Percocet 5/325 mg po q4h prn for pain Manager Hardware consulted, Dr. Wilson, help appreciated heme/onc consult, Dr. Esposito, help appreciated ABD US: Markedly limited study due to patient condition and pain. Heterogenous echogenic liver limits evaluation. Nodular hepatic contour with perihepatic ascites present. Dialated CBD in setting of cholecystectomy. Right-sided hydronephrosis (see full report). Pelvic US: suboptimal examination which was markedly limited by patient coniditon/pain. Enlarged heterogenous complex apearance of uterine/pelvic mass 18.3 x 13.1 x 17.2 cm. Endometrial stripe not adequately visualized, markedly thickened irregular heterogenous region measuring 6.4 cm (see full report) Elevated D-Dimer D-dimer [address]: no pulmonary embolus (please see full report) Doppler U/S of LE- no evidence of b/l DVTs (please see full report) Constipation Likely due to hypercalcemia Colace 100 mg po qd HTN Norvasc 10 mg po qd Toprol 50 mg po qd Coronary Artery Disease Crestor 5 mg po hs Imdur 30 mg po qd Prophylactic Measures GI: Protonix 40 mg po qd DVT: Heparin 5000 units sc q8h, SCDs <Meyers,Peter H - Last Filed: 11/08/16 16:41> Objective - Vital Signs/Intake and Output Vital Signs (last 24 hours): Temp Pulse Resp BP Pulse Ox 97.3 F L 110 H 20 124/69 95 11/08/16 16:00 11/08/16 16:00 11/08/16 16:00 11/08/16 16:00 11/08/16 16:00 Intake and Output: 11/08/16 11/08/16 06:59 18:59 Intake Total 1200 1865 Output Total 700 150 Balance 500 1715 - Medications Medications: Current Medications Albuterol/Ipratropium (Duoneb 3 Mg/0.5 Mg (3 Ml) Ud) 3 ml INH RQ6 PRN PRN Reason: Wheezing Last Admin: 11/08/16 14:46 Dose: 3 ml Amlodipine Besylate (Norvasc) 10 mg PO DAILY [facility] Last Admin: 11/08/16 10:35 Dose: 10 mg Docusate Sodium (Colace) 100 mg PO BID [facility] Last Admin: 11/08/16 10:35 Dose: 100 mg Ferric Sodium Gluconate Complex (Ferrlecit) 125 mg IVPB DAILY [facility] Stop: 11/10/16 11:01 Last Admin: 11/08/16 10:34 Dose: 125 mg Furosemide (Lasix) 20 mg IVP DAILY [facility] Last Admin: 11/08/16 10:35 Dose: 20 mg Heparin Sodium (Porcine) (Heparin) 5,000 units SC Q8 [facility] Last Admin: 11/08/16 13:29 Dose: 5,000 units Azithromycin 500 mg/ Sodium (Chloride) 250 mls @ 250 mls/hr IVPB DAILY [facility] Last Admin: 11/08/16 13:28 Dose: 250 mls/hr Ceftriaxone Sodium 1 gm/ (Sodium Chloride) 100 mls @ 100 mls/hr IVPB Q12H [facility] Last Admin: 11/08/16 14:56 Dose: 100 mls/hr Dextrose/Sodium Chloride (Dextrose 5%/0.45% Ns 1000 Ml) 1,000 mls @ 150 mls/hr IV .Q6H40M [facility] Isosorbide Mononitrate (Imdur) 30 mg PO DAILY [facility] Last Admin: 11/08/16 10:35 Dose: 30 mg Metoprolol Succinate (Toprol Xl) 50 mg PO DAILY [facility] Last Admin: 11/08/16 10:41 Dose: 50 mg Morphine Sulfate (Morphine) 4 mg IVP Q4 PRN PRN Reason: Pain, severe (8-10) Last Admin: 11/08/16 13:32 Dose: 4 mg Pantoprazole Sodium (Protonix Ec Tab) 40 mg PO DAILY [facility] Last Admin: 11/08/16 10:34 Dose: 40 mg Potassium Phos/Sodium Phos (Neutra-Phos) 1 pkt PO TIDCC [facility] Last Admin: 11/08/16 12:52 Dose: 1 pkt Rosuvastatin Calcium (Crestor) 5 mg PO HS [facility] Last Admin: 11/07/16 21:48 Dose: 5 mg - Labs Labs: 11/08/16 06:40 11/08/16 06:40 PT 12.8 SECONDS (9.7-12.2) H 11/03/16 16:53 INR 1.1 11/03/16 16:53 APTT 28 SECONDS (21-34) D 11/03/16 16:53 Attending/Attestation - Attestation I have personally seen and examined this patient.: Yes I have fully participated in the care of the patient.: Yes I have reviewed all pertinent clinical information, including history, physical exam and plan: Yes Notes (Text): Medical attending: Patient was seen and examined by me, agrees the above note by biomedical field service engineer. Family member was at bedside and she helped with translation, tomorrow the patient is going to try to have a IR biopsy hopefully if the lung mass and hopefully this will give us a better idea of where the primary malignancy is originated from. 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 According to the family who is translating the patient was not having any acute pain when we saw her this morning. Her breathing is also stable at this time, however she does need to be on the nasal cannula and her pulse oxes are 93-94%. So at this time the patient will be nothing by mouth after midnight and hopefully for biopsy tomorrow Thank you very much, Satya Meyers
[2016-11-08] MEDS ORDERED: Dextrose 5%/0.45% NS 1,000 ML IV SCH (16:45)
[2016-11-09] MEDS: Sodium Chloride 0.9% 1,000 ML IV SCH (01:00)
[2016-11-09] MEDS ORDERED: Morphine 4 MG/ML VIAL IV PRN (06:55)
[2016-11-09] MEDS: Potassium & Sodium Phosphate PO SCH ×2 (08:12→12:48)
[2016-11-09] MEDS: Azithromycin 500 MG in Sodium Chloride 0.9% 250 ML IVPB SCH (09:08)
[2016-11-09] MEDS: Ferric Sodium Gluconat Complex 62.5 mg/5 ml Vial IVPB SCH (09:09)
[2016-11-09] MEDS: HYDROmorphone 0.5 mg/0.5 ml ISec IVP PRN ×5 (10:47→23:57)
--- NOTE | 2016-11-09 11:47 | CP.PCM.PN ---
Subjective - Date & Time of Evaluation Date of Evaluation: 11/09/16 Time of Evaluation: 11:44 - Subjective Subjective: Patient given Dilaudid 0.5 mg at 10: 44 and is sleeping at present. Objective - Vital Signs/Intake and Output Vital Signs (last 24 hours): Temp Pulse Resp BP Pulse Ox 97.6 F 96 H 18 147/97 H 96 11/09/16 08:00 11/09/16 04:00 11/09/16 04:00 11/09/16 09:10 11/09/16 04:00 Intake and Output: 11/09/16 11/09/16 06:59 18:59 Intake Total 1500 125 Output Total 650 Balance 850 125 - Medications Medications: Current Medications Albuterol/Ipratropium (Duoneb 3 Mg/0.5 Mg (3 Ml) Ud) 3 ml INH RQ6 PRN PRN Reason: Wheezing Last Admin: 11/08/16 19:58 Dose: 3 ml Amlodipine Besylate (Norvasc) 10 mg PO DAILY [facility] Last Admin: 11/08/16 10:35 Dose: 10 mg Docusate Sodium (Colace) 100 mg PO BID [facility] Last Admin: 11/08/16 17:15 Dose: 100 mg Ferric Sodium Gluconate Complex (Ferrlecit) 125 mg IVPB DAILY [facility] Stop: 11/10/16 11:01 Last Admin: 11/09/16 09:09 Dose: 125 mg Furosemide (Lasix) 20 mg IVP DAILY [facility] Heparin Sodium (Porcine) (Heparin) 5,000 units SC Q8 [facility] Last Admin: 11/09/16 06:34 Dose: Not Given Hydromorphone HCl (Dilaudid) 0.5 mg IVP Q2H PRN PRN Reason: Pain, severe (8-10) Last Admin: 11/09/16 10:47 Dose: 0.5 mg Azithromycin 500 mg/ Sodium (Chloride) 250 mls @ 250 mls/hr IVPB DAILY [facility] Last Admin: 11/09/16 09:08 Dose: 250 mls/hr Ceftriaxone Sodium 1 gm/ (Sodium Chloride) 100 mls @ 100 mls/hr IVPB Q12H [facility] Last Admin: 11/09/16 02:58 Dose: 100 mls/hr Sodium Chloride (Sodium Chloride 0.9%) 1,000 mls @ 125 mls/hr IV .Q8H [facility] Last Admin: 11/09/16 01:00 Dose: 125 mls/hr Isosorbide Mononitrate (Imdur) 30 mg PO DAILY [facility] Last Admin: 11/08/16 10:35 Dose: 30 mg Ketorolac Tromethamine (Toradol) 30 mg IVP Q6 PRN PRN Reason: Pain, moderate (4-7) Metoprolol Succinate (Toprol Xl) 50 mg PO DAILY [facility] Last Admin: 11/08/16 10:41 Dose: 50 mg Pantoprazole Sodium (Protonix Ec Tab) 40 mg PO DAILY [facility] Last Admin: 11/08/16 10:34 Dose: 40 mg Potassium Phos/Sodium Phos (Neutra-Phos) 1 pkt PO TIDCC [facility] Last Admin: 11/09/16 08:12 Dose: Not Given Rosuvastatin Calcium (Crestor) 5 mg PO HS [facility] Last Admin: 11/08/16 22:15 Dose: 5 mg - Labs Labs: 11/08/16 06:40 11/08/16 06:40 PT 12.8 SECONDS (9.7-12.2) H 11/03/16 16:53 INR 1.1 11/03/16 16:53 APTT 28 SECONDS (21-34) D 11/03/16 16:53 - Constitutional Appears: Chronically Ill - Head Exam Head Exam: ATRAUMATIC - Eye Exam Eye Exam: EOMI, Normal appearance, PERRL Pupil Exam: NORMAL ACCOMODATION - ENT Exam ENT Exam: Mucous Membranes Dry - Neck Exam Neck Exam: Normal Inspection - Respiratory Exam Respiratory Exam: Accessory Muscle Use, Decreased Breath Sounds - Cardiovascular Exam Cardiovascular Exam: Tachycardia - GI/Abdominal Exam GI & Abdominal Exam: Diminished Bowel Sounds - Rectal Exam Rectal Exam: Deferred - Exam Additional comments: Sawyer cath - Extremities Exam Extremities Exam: Normal Inspection - Back Exam Back Exam: CVA tenderness (L), CVA tenderness (R) - Neurological Exam Neurological Exam: Alert, Altered Neuro motor strength exam: Left Upper Extremity: 2/1, Right Upper Extremity: 2/1 , Left Lower Extremity: 2/1, Right Lower Extremity: 2/1 - Psychiatric Exam Psychiatric exam: Normal Affect, Normal Mood - Skin Skin Exam: Pallor Assessment and Plan - Assessment and Plan (Free Text) Assessment: Patient is SOB requiring face mask for breathing. Patient was complained of lower back and lower abdominal pain. Patient given dose of Dilaudid IV and was sleeping at time of exam. Family is concerned about the effect of opioids on patient's respiratory status. I spoke to daughter Aysha and explained that patient's respiratory distress was mainly caused by underlying medical condition and that opioids if given within therapeutic range would not cause respiratory distress. The daughter Heydi further asked about the Code status and expressed her and her siblings belief that her mother would never wanted to be kept alive on life support if meaningful recovery was not expected. Aysha said, her mother has told her that in the past. I supported her regarding DNR/DNI, but stated that patient is usually alert and oriented X 3 and should be the one making those decision. We agreed to meet at 12 noon for completing of the goals of care discussion when patient more alert. Impression * Chronically ill patient with most likely lung mets, biopsy pending * Lower back pain cancer related * Severe SOB requiring facial mask for O 2 supply * Debility and limited mobility due to general weakness * Patient's daughter Aysha is suggesting her mother would want to be allowed natural * Patient is mildly lethargic at present , S/P Dilaudid IV for pain Suggestion * Palliative care will meet again with daughter today at 12 noon, when patient more alert, to finalize goals of care discussion * Agree with pain management * Patient is for lung biopsy today
[2016-11-09] MEDS ORDERED: Midazolam 2 MG/2 ML VIAL ONE (12:22)
[2016-11-09] MEDS ORDERED: Propofol 10 mg/ml Inj (20 ML) ONE (12:24)
--- NOTE | 2016-11-09 13:09 | PCM.SURG1 ---
Surgeon's Initial Post Op Note - Surgeon's Notes Surgeon: Juaquin Rivera MD Hotel Controller: NONE Type of Anesthesia: IV Sedation Pre-Operative Diagnosis: Lung masses Operative Findings: CT showed multiple lung masses of various sizes Post-Operative Diagnosis: Lung masses Operation Performed: CT guided right lung mass biopsy. Specimen/Specimens Removed: 20 gauge core x 4 Estimated Blood Loss: EBL {In ML}: 0 Blood Products Given: N/A Drains Used: No Drains Post-Op Condition: Fair Date of Surgery/Procedure: 11/09/16 Time of Surgery/Procedure: 13:05
--- NOTE | 2016-11-09 13:26 | CT ---
PROCEDURE: Date of procedure: 11/09/2016 Procedure: 1. CT-guided lung mass biopsy, CPT [address] Guidance for biopsy, [address] Medications: The patient was sedated by anesthesiologist along with physiologic monitoring. Radiation: 723.44 mGy-cm HISTORY: Right and left lung nodules. TECHNIQUE: Following informed consent, the Pt's chest was marked. The Pt was placed supine on the CT table and procedure time out was performed. A noncontrast CT scan was performed. Noncontrast CT scan confirmed the presence of multiple right and left lung nodules. A 1.5 cm right upper lobe nodule was selected for CT guided biopsy. A skin localizer was placed on the patient's right chest and a repeat CT scan was performed. The skin was marked, prepped, and draped in the usual sterile fashion. After the skin was anesthetized with lidocaine and the patient sedated by the anesthesiologist, a 20 gauge core needle was advanced percutaneously under direct CT guidance into the nodule. Upon confirmation of needle position, four 20-gauge core specimens were obtained and sent for routine pathology. The needle was removed and a xeroform dressing was applied. A post biopsy CT scan showed a <5% pneumothorax. IMPRESSION: CT guided core biopsy right lung nodule.
--- NOTE | 2016-11-09 14:26 | CP.PCM.PN ---
<Dakota Guokan - Last Filed: 11/09/16 14:58> Subjective - Date & Time of Evaluation Date of Evaluation: 11/09/16 Time of Evaluation: 07:47 - Subjective Subjective: Pt seen and examined. Pt reports that she is feeling sweaty. She also reports that she still has moderate abdominal pain despite the current pain medications. Pt denies fever, chills, chest pain, shortness of breath, nausea, and vomiting. Objective - Vital Signs/Intake and Output Vital Signs (last 24 hours): Temp Pulse Resp BP Pulse Ox 97.9 F 110 H 18 137/59 L 95 11/09/16 12:00 11/09/16 12:00 11/09/16 12:00 11/09/16 12:00 11/09/16 12:00 Intake and Output: 11/09/16 11/09/16 06:59 18:59 Intake Total 1500 850 Output Total 650 670 Balance 850 180 - Medications Medications: Current Medications Albuterol/Ipratropium (Duoneb 3 Mg/0.5 Mg (3 Ml) Ud) 3 ml INH RQ6 PRN PRN Reason: Wheezing Last Admin: 11/08/16 19:58 Dose: 3 ml Amlodipine Besylate (Norvasc) 10 mg PO DAILY [facility] Last Admin: 11/08/16 10:35 Dose: 10 mg Docusate Sodium (Colace) 100 mg PO BID [facility] Last Admin: 11/09/16 12:49 Dose: Not Given Ferric Sodium Gluconate Complex (Ferrlecit) 125 mg IVPB DAILY [facility] Stop: 11/10/16 11:01 Last Admin: 11/09/16 09:09 Dose: 125 mg Furosemide (Lasix) 20 mg IVP DAILY [facility] Heparin Sodium (Porcine) (Heparin) 5,000 units SC Q8 [facility] Last Admin: 11/09/16 06:34 Dose: Not Given Hydromorphone HCl (Dilaudid) 0.5 mg IVP Q2H PRN PRN Reason: Pain, severe (8-10) Last Admin: 11/09/16 10:47 Dose: 0.5 mg Azithromycin 500 mg/ Sodium (Chloride) 250 mls @ 250 mls/hr IVPB DAILY [facility] Last Admin: 11/09/16 09:08 Dose: 250 mls/hr Ceftriaxone Sodium 1 gm/ (Sodium Chloride) 100 mls @ 100 mls/hr IVPB Q12H [facility] Last Admin: 11/09/16 02:58 Dose: 100 mls/hr Sodium Chloride (Sodium Chloride 0.9%) 1,000 mls @ 125 mls/hr IV .Q8H [facility] Last Admin: 11/09/16 01:00 Dose: 125 mls/hr Isosorbide Mononitrate (Imdur) 30 mg PO DAILY [facility] Last Admin: 11/08/16 10:35 Dose: 30 mg Ketorolac Tromethamine (Toradol) 30 mg IVP Q6 PRN PRN Reason: Pain, moderate (4-7) Metoprolol Succinate (Toprol Xl) 50 mg PO DAILY [facility] Last Admin: 11/08/16 10:41 Dose: 50 mg Pantoprazole Sodium (Protonix Ec Tab) 40 mg PO DAILY [facility] Last Admin: 11/08/16 10:34 Dose: 40 mg Potassium Phos/Sodium Phos (Neutra-Phos) 1 pkt PO TIDCC [facility] Last Admin: 11/09/16 12:48 Dose: Not Given Rosuvastatin Calcium (Crestor) 5 mg PO HS [facility] Last Admin: 11/08/16 22:15 Dose: 5 mg - Labs Labs: 11/08/16 06:40 11/08/16 06:40 PT 12.8 SECONDS (9.7-12.2) H 11/03/16 16:53 INR 1.1 11/03/16 16:53 APTT 28 SECONDS (21-34) D 11/03/16 16:53 - Constitutional Appears: No Acute Distress, Chronically Ill - Eye Exam Eye Exam: EOMI, PERRL - ENT Exam ENT Exam: Mucous Membranes Moist. absent: Mucous Membranes Dry - Respiratory Exam Respiratory Exam: Clear to Ausculation Bilateral. absent: Rales, Rhonchi, Wheezes - Cardiovascular Exam Cardiovascular Exam: +S1, +S2. absent: Gallop, Rubs - GI/Abdominal Exam GI & Abdominal Exam: Soft, Tenderness, Mass. absent: Guarding, Rigid - Extremities Exam Extremities Exam: Pedal Edema Additional comments: Trace pedal edema - Neurological Exam Neurological Exam: Alert, Awake, Oriented x3 - Psychiatric Exam Psychiatric exam: Normal Affect, Normal Mood - Skin Skin Exam: Normal Color, Warm Assessment and Plan - Assessment and Plan (Free Text) Assessment: SIRS Leukocytosis tachycardic Afebrile Blood cultures negative after 24 hours Azithromycin 500 mg iv qd Ceftriaxone 1 gm Iv qd Hypercalcemia Resolved Likely secondary to malignancy NS IVF at 125 cc/hr Lasix 20 mg IV qd T4 1.48 TSH 1.55 PTH - 2 low PTH related peptide levels pending Ionized Ca level pending EKG 11/04 w/sinus tachycardia- official read pending EKG 11/03 - normal QT interval Thyroid ultrasound: 1. Multiple (15) thyroid nodules varying from 2 mm to 1.5 cm. 2. Exophytic nodule or possible right parathyroid mass/ adenoma followup advised. Parathyroid scan recommended in the clinical presentation of hypercalcemia with this finding (see full report). Chest CT: innumerable bilateral pulmonary masses; large 8.2 x 6.2 cm central mass with irregular contours abutting/encasing branches of the pulmonary artery ; small right sided pleural effusion; consistent with metastatic disease; mediastinal adenopathy; 11 mm hepatic lesion within the right hepatic lobe; no pulmonary embolus evident (see full report) CEA <0.3 CA-125 - [address]: innumerable bilateral pulmonary masses; large 8.2 x 6.2 cm central mass with irregular contours abutting/encasing branches of the pulmonary artery ; small right sided pleural effusion; consistent with metastatic disease; mediastinal adenopathy; 11 mm hepatic lesion within the right hepatic lobe; no pulmonary embolus evident (please see full report) heme/onc consult, Dr. Esposito, help appreciated. Duonebs prn for wheezing Interventional Radiology, Dr. Rivera, consulted. Help appreciated. Plan for lung nodule biopsy nona with as per IR NPO after midnight Day 0 s/p right lung nodule biopsy CXR (11/08) right central lung mass, with innumerable bilateral pulmonary masses ; interval left pleural effusion (please see full report) CXR (11/09) small right pneumothorax following lung biospy (please see full report) 94% sat on ventimask BIPAP Repeat Chest CT pending Uterine fibroids Abd/pelvis U/S: enlarged, rounded at the fundus, bulky and in homogenous uterus measuring 10.8 x 7.9 x 7.7cm. Fibroid mass at posterior aspect of uterus measuring 6.5 x 5.3 x 5.2cm (please see full report). Percocet 5/325 mg po q4h prn for pain Air Sampling And Monitoring consulted, Dr. Wilson, help appreciated heme/onc consult, Dr. Esposito, help appreciated ABD US: Markedly limited study due to patient condition and pain. Heterogenous echogenic liver limits evaluation. Nodular hepatic contour with perihepatic ascites present. Dialated CBD in setting of cholecystectomy. Right-sided hydronephrosis (see full report). Pelvic US: suboptimal examination which was markedly limited by patient coniditon/pain. Enlarged heterogenous complex apearance of uterine/pelvic mass 18.3 x 13.1 x 17.2 cm. Endometrial stripe not adequately visualized, markedly thickened irregular heterogenous region measuring 6.4 cm (see full report) Dilaudid 0.5 mg IV q2h prn for pain Elevated D-Dimer D-dimer [address]: no pulmonary embolus (please see full report) Doppler U/S of LE- no evidence of b/l DVTs (please see full report) Constipation Likely due to hypercalcemia Colace 100 mg po qd HTN Norvasc 10 mg po qd Toprol 50 mg po qd Coronary Artery Disease Crestor 5 mg po hs Imdur 30 mg po qd Prophylactic Measures GI: Protonix 40 mg po qd DVT: Heparin 5000 units sc q8h, [facility] <Meyers,Peter H - Last Filed: 11/09/16 16:39> Objective - Vital Signs/Intake and Output Vital Signs (last 24 hours): Temp Pulse Resp BP Pulse Ox 97.1 F L 108 H 16 137/98 H 95 11/09/16 16:00 11/09/16 16:00 11/09/16 16:00 11/09/16 16:00 11/09/16 16:00 Intake and Output: 11/09/16 11/09/16 06:59 18:59 Intake Total 1500 1195 Output Total 650 1120 Balance 850 75 - Medications Medications: Current Medications Albuterol/Ipratropium (Duoneb 3 Mg/0.5 Mg (3 Ml) Ud) 3 ml INH RQ6 PRN PRN Reason: Wheezing Last Admin: 11/08/16 19:58 Dose: 3 ml Amlodipine Besylate (Norvasc) 10 mg PO DAILY [facility] Last Admin: 11/09/16 14:38 Dose: 10 mg Docusate Sodium (Colace) 100 mg PO BID [facility] Last Admin: 11/09/16 12:49 Dose: Not Given Ferric Sodium Gluconate Complex (Ferrlecit) 125 mg IVPB DAILY [facility] Stop: 11/10/16 11:01 Last Admin: 11/09/16 09:09 Dose: 125 mg Furosemide (Lasix) 20 mg IVP DAILY [facility] Hydromorphone HCl (Dilaudid) 0.5 mg IVP Q2H PRN PRN Reason: Pain, severe (8-10) Last Admin: 11/09/16 14:56 Dose: 0.5 mg Azithromycin 500 mg/ Sodium (Chloride) 250 mls @ 250 mls/hr IVPB DAILY [facility] Last Admin: 11/09/16 09:08 Dose: 250 mls/hr Ceftriaxone Sodium 1 gm/ (Sodium Chloride) 100 mls @ 100 mls/hr IVPB Q12H [facility] Last Admin: 11/09/16 14:31 Dose: 100 mls/hr Isosorbide Mononitrate (Imdur) 30 mg PO DAILY [facility] Last Admin: 11/09/16 14:40 Dose: 30 mg Ketorolac Tromethamine (Toradol) 30 mg IVP Q6 PRN PRN Reason: Pain, moderate (4-7) Metoprolol Succinate (Toprol Xl) 50 mg PO DAILY [facility] Last Admin: 11/09/16 14:39 Dose: 50 mg Pantoprazole Sodium (Protonix Ec Tab) 40 mg PO DAILY [facility] Last Admin: 11/09/16 14:39 Dose: 40 mg Rosuvastatin Calcium (Crestor) 5 mg PO HS [facility] Last Admin: 11/08/16 22:15 Dose: 5 mg - Labs Labs: 11/09/16 15:23 11/09/16 15:23 PT 12.8 SECONDS (9.7-12.2) H 11/03/16 16:53 INR 1.1 11/03/16 16:53 APTT 28 SECONDS (21-34) D 11/03/16 16:53 Attending/Attestation - Attestation I have personally seen and examined this patient.: Yes I have fully participated in the care of the patient.: Yes I have reviewed all pertinent clinical information, including history, physical exam and plan: Yes Notes (Text): 11/09/16 16:28 Medical Attending: Patient was seen and examined by me. Agree with the above note by the resident. Today the patient underwent biopsy of the lung to help further clarify the tumor. 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 The patient had additional pain overnight and I made it so that she could receive medications Q 2 hrs. This morning when I saw her, family was present and they explain that despite changes overnight she still looked to be in pain. Will record changer assembler to diluaid IV, we were careful and explained to her that this medication can cause a decrease in repspiratory drive. Also added on toradol for more pain control. After the biopsy she was short of breath and per explaination of IR there probably was a small pneuomthorax. I came and saw the patient and family again and started on BiPap 12/ @ 100, hopefully this will help. Will adjust the bipap setting as we go along. In the morning I again had another long (and also emotional discussion) with the patient's youngest family member who is helping with translation. We discussed things such as the difference between Bipap and intubation. thank you Satya Meyers
--- NOTE | 2016-11-09 14:33 | RAD ---
PROCEDURE: CHEST RADIOGRAPH, 1 VIEW HISTORY: Status post right lung mass biopsy. COMPARISON: None available. FINDINGS: LUNGS: Patchy opacities throughout the right and left lung. . PLEURA: Small right pneumothorax, 15 percent CARDIOVASCULAR: Enlarged cardiopericardial silhouette OSSEOUS STRUCTURES: No significant abnormalities. VISUALIZED UPPER ABDOMEN: Normal. OTHER FINDINGS: None. IMPRESSION: Small right pneumothorax following right lung nodule biopsy. Pneumothorax approximately 15 percent predominantly in the right upper lung.
[2016-11-09] MEDS: Pantoprazole 40 mg EC Tab PO SCH (14:39)
[2016-11-09] MEDS: Metoprolol Succinate 50 mg XL Tab PO SCH (14:39)
--- NOTE | 2016-11-09 14:46 | CP.PCM.CON ---
Past Patient History - Infectious Disease Hx of Infectious Diseases: None - Past Medical History & Family History Past Medical History?: Yes - Past Social History Smoking Status: Former Smoker - CARDIAC Hx Cardiac Disorders: Yes Hx Hypertension: Yes - PULMONARY Hx Respiratory Disorders: No - NEUROLOGICAL Hx Neurological Disorder: No - HEENT Hx HEENT Problems: No - RENAL Hx Chronic Kidney Disease: No - ENDOCRINE/METABOLIC Hx Diabetes Mellitus Type 2: Yes - HEMATOLOGICAL/ONCOLOGICAL Hx Blood Disorders: No - INTEGUMENTARY Hx Dermatological Problems: No - MUSCULOSKELETAL/RHEUMATOLOGICAL Hx Musculoskeletal Disorders: No Hx Falls: No - GASTROINTESTINAL Hx Diverticulitis: Yes - GENITOURINARY/GYNECOLOGICAL Hx Genitourinary Disorders: No Other/Comment: uterine fibroids - PSYCHIATRIC Hx Substance Use: No - SURGICAL HISTORY Hx Appendectomy: Yes Hx Cholecystectomy: Yes Hx Coronary Stent: Yes (2007) - ANESTHESIA Hx Anesthesia: Yes Hx Anesthesia Reactions: No Hx Malignant Hyperthermia: No Meds Allergies/Adverse Reactions: Allergies Allergy/AdvReac Type Severity Reaction Status Date / Time lisinopril AdvReac Verified 11/03/16 15:44 - Medications Medications: Current Medications Albuterol/Ipratropium (Duoneb 3 Mg/0.5 Mg (3 Ml) Ud) 3 ml INH RQ6 PRN PRN Reason: Wheezing Last Admin: 11/08/16 19:58 Dose: 3 ml Amlodipine Besylate (Norvasc) 10 mg PO DAILY [facility] Last Admin: 11/09/16 14:38 Dose: 10 mg Docusate Sodium (Colace) 100 mg PO BID [facility] Last Admin: 11/09/16 12:49 Dose: Not Given Ferric Sodium Gluconate Complex (Ferrlecit) 125 mg IVPB DAILY [facility] Stop: 11/10/16 11:01 Last Admin: 11/09/16 09:09 Dose: 125 mg Furosemide (Lasix) 20 mg IVP DAILY [facility] Furosemide (Lasix) 20 mg IVP [facility] Stop: 11/09/16 14:40 Heparin Sodium (Porcine) (Heparin) 5,000 units SC Q8 [facility] Last Admin: 11/09/16 14:35 Dose: Not Given Hydromorphone HCl (Dilaudid) 0.5 mg IVP Q2H PRN PRN Reason: Pain, severe (8-10) Last Admin: 11/09/16 10:47 Dose: 0.5 mg Azithromycin 500 mg/ Sodium (Chloride) 250 mls @ 250 mls/hr IVPB DAILY [facility] Last Admin: 11/09/16 09:08 Dose: 250 mls/hr Ceftriaxone Sodium 1 gm/ (Sodium Chloride) 100 mls @ 100 mls/hr IVPB Q12H [facility] Last Admin: 11/09/16 14:31 Dose: 100 mls/hr Isosorbide Mononitrate (Imdur) 30 mg PO DAILY [facility] Last Admin: 11/09/16 14:40 Dose: 30 mg Ketorolac Tromethamine (Toradol) 30 mg IVP Q6 PRN PRN Reason: Pain, moderate (4-7) Metoprolol Succinate (Toprol Xl) 50 mg PO DAILY [facility] Last Admin: 11/09/16 14:39 Dose: 50 mg Pantoprazole Sodium (Protonix Ec Tab) 40 mg PO DAILY [facility] Last Admin: 11/09/16 14:39 Dose: 40 mg Potassium Phos/Sodium Phos (Neutra-Phos) 1 pkt PO TIDCC [facility] Last Admin: 11/09/16 12:48 Dose: Not Given Rosuvastatin Calcium (Crestor) 5 mg PO HS [facility] Last Admin: 11/08/16 22:15 Dose: 5 mg Results - Vital Signs Recent Vital Signs: Last Vital Signs Temp 97.9 F 11/09/16 12:00 Pulse 110 H 11/09/16 12:00 Resp 18 11/09/16 12:00 BP 137/59 L 11/09/16 12:00 Pulse Ox 95 11/09/16 12:00 - Labs Result Diagrams: 11/08/16 06:40 11/08/16 06:40 Labs: Laboratory Results - last 24 hr 11/08/16 11/08/16 11/09/16 16:35 21:23 07:32 POC Glucose (mg/dL) 127 H 128 H 101 11/09/16 11:30 POC Glucose (mg/dL) 92
--- NOTE | 2016-11-09 15:11 | CT ---
PROCEDURE: CT Chest without contrast HISTORY: look for worsening pleural effusion COMPARISON: None. TECHNIQUE: Contiguous axial images were obtained through the chest without intravenous contrast enhancement. Sagittal and coronal reconstructions were performed. Radiation dose (DLP): 583.78 mGy-cm. This CT exam was performed using one or more of the following dose reduction techniques: Automated exposure control, adjustment of the mA and/or kV according to patient size, and/or use of iterative reconstruction technique. FINDINGS: LUNGS: Multiple lung nodules as before. The largest in the right lower lobe. Patchy airspace opacities also noted as before. This is not significantly changed since the prior CT from 11/03/2016. MEDIASTINUM: Scattered atherosclerotic calcification throughout the thoracic aorta. The heart is not significantly enlarged. Minimal pericardial effusion. Main pulmonary artery abuts the lower lobe mass. Bilateral hilar and mediastinal lymphadenopathy. PLEURA: There is bilateral pleural effusion. The left-sided pleural effusion is slightly worsened. Associated compressive atelectasis and/ pneumonia. BONES: No destructive lesions. Healed fractures of the right ribs. UPPER ABDOMEN: Increasing ascites. OTHER FINDINGS: Heterogeneous thyroid gland with multiple nodules. IMPRESSION: Mildly increased left-sided pleural effusion. Essentially unchanged right-sided pleural effusion. Associated compressive atelectasis and/or pneumonia. Re- demonstration of multiple pulmonary nodules the largest being on the right lower lobe. Patchy airspace opacities also noted as before. Increasing abdominal ascites. Heterogeneous thyroid gland. Dedicated ultrasound recommended if indicated.
[2016-11-09 15:28] LABS: BASO # 0.1 K/uL (0.0-0.2); BASO % 0.5 % (0.0-2.0); EOS # 0.1 K/uL (0.0-0.7); EOS % 0.4 % (0.0-4.0); HEMATOCRIT 33.7 % (34.0-47.0); LYMPH # 1.3 K/uL (1.0-4.3); LYMPH % 7.6 % (20.0-40.0); MEAN CORPUSCULAR HEMOGLOBIN 24.7 pg (27.0-31.0); MEAN CORPUSCULAR HGB CONC 31.6 g/dL (33.0-37.0); MEAN PLATELET VOLUME 8.3 fL (7.2-11.7); MONO # 3.2 K/uL (0.0-0.8); MONO % 18.3 % (0.0-10.0); RED CELL DISTRIBUTION WIDTH 14.4 % (11.5-14.5); WHITE BLOOD COUNT 17.5 K/uL (4.8-10.8)
[2016-11-09 15:33] LABS: PLATELET COUNT 560 K/uL (130-400)
[2016-11-09 15:38] LABS: CHLORIDE 104 mmol/L (98-107)
[2016-11-09 15:39] LABS: POTASSIUM 3.5 mmol/L (3.6-5.2); SODIUM 141 mmol/L (132-148)
[2016-11-09 15:41] LABS: GFR AFRICAN-AMERICAN > 60
[2016-11-09 15:42] LABS: ALKALINE PHOSPHATASE 88 U/L (38-126); ALT/SGPT 30 U/L (9-52); AST/SGOT 73 U/L (14-36); BILIRUBIN,TOTAL < 0.1 mg/dL (0.2-1.3); BLOOD UREA NITROGEN 12 mg/dL (7-17); CARBON DIOXIDE 25 mmol/L (22-30); GLUCOSE,RANDOM 107 mg/dL (65-105); PHOSPHOROUS 2.5 mg/dL (2.5-4.5); TOTAL PROTEIN 6.4 g/dL (6.3-8.3)
[2016-11-09 15:43] LABS: CALCIUM 9.1 mg/dl (8.6-10.4); MAGNESIUM 2.2 mg/dL (1.6-2.3)
[2016-11-09 15:52] LABS: MYELOCYTE 3 % (0-0); NEUTROPHIL 66 % (50-75); TOTAL CELLS COUNTED 100
[2016-11-09 15:53] LABS: LARGE PLATELETS PRESENT
--- NOTE | 2016-11-09 16:27 | RAD ---
HISTORY: follow up possible ride sided pneumothorax COMPARISON: No prior. FINDINGS: LUNGS: Nodular opacities throughout both lungs. PLEURA: Minimally increased right pneumothorax. CARDIOVASCULAR: Normal. OSSEOUS STRUCTURES: The osseous structures demonstrate degenerative changes. VISUALIZED UPPER ABDOMEN: Upper abdomen is suboptimally evaluated. OTHER FINDINGS: None. IMPRESSION: Minimally increased right pneumothorax.
--- NOTE | 2016-11-09 16:51 | CP.PCM.CON ---
<Ledy Reynolds - Last Filed: 11/09/16 16:38> History of Present Illness - History of Present Illness History of Present Illness: Critical Care Consult Note (H&P retrieved from admission note) Patient is a 66 year old [place] female with past medical history of hypertension , hyperlipidemia, coronary artery disease status post stenting, and uterine fibroids who presents to the hospital with complaint of generalized fatigue, malaise, and weakness for the past two weeks. Patient was previously seen in the ED here on 10/24/16, at which time she was diagnosed with hypercalcemia, with a calcium level of 11.9. Patient was told at that time to discontinue her use of hydrochlorothiazide and vitamin D. Patient was referred to the [facility] for follow up care. Patient was seen at the clinic yesterday 11/02, by Dr. Rhoades, for management of her uterine fibroids. During that clinic visit the possibility of malignancy in the uterus was discussed due to uterus size and patient discussed her preference for hysterectomy. Patient was also seen in the clinic today, , for follow up of her hypercalcemia and lab work and thyroid ultrasound was ordered. Patient states that she felt too weak and came back to the ED for re- evaluation. Patient admits to sleeping more during the day, as well as poor sleep at night due to waking up 2-3 times per night to urinate. Patient states she was told that her uterine fibroids are pressing on her bladder as the cause of the urinary frequency. Patient admits to feeling hot and breaking out into a sweat occasionally. Patient also admits to light-headedness but denies room spinning. Patient admits to visual changes where she sees a silver spot zig-zag across her vision - this has occurred 3 times over the past 2 weeks. Patient admits to occasional palpitations but denies chest pain. Patient admits to shortness of breath with walking at a fast pace for one block. Patient denies needing to stop walking, but will have to slow down. Patient denies orthopnea. Patient admits to nausea and constipation but denies change in stool color. Patient is able to have bowel movement with aid of stool softener. Patient admits to occasional back pain. She also admits to 9 pound unintentional weight loss over 3 months duration. Patient and family deny change in mentation. PMD: [facility] Outpatient gynecology: Dr. Rhoades at [facility] PMHx: HTN, HLD, CAD, uterine fibroids PSHx: appendectomy, cholecystectomy, cardiac catheterization with stents FamHx: sister with diabetes, mother and father of CT in mid 70s Social Hx: former 1 ppd smoker for 30 years, quit 10-15 years ago; denies drugs and alcohol; lives with daughter Allergies: lisinopril- constant dry cough 11/09/16- 15:00 Patient s/p lung nodule biopsy returned to the unit with shortness of breath. As per CXR showed right sided pneumothorax. CT Chest however did not show a right sided pneumothorax. Patient was placed on BiPAP 12/6 @ 100 and her O2 sat was 95%. Lasix was given. Patient is currently in the ICU for telemetry, patient will be monitored closely. Current Bipap settings: 10/5, 100% RR 14, O2 sat is 94%. Patient is in no respiratory distress. Past Patient History - Infectious Disease Hx of Infectious Diseases: None - Past Medical History & Family History Past Medical History?: Yes - Past Social History Smoking Status: Former Smoker - CARDIAC Hx Cardiac Disorders: Yes Hx Hypertension: Yes - PULMONARY Hx Respiratory Disorders: No - NEUROLOGICAL Hx Neurological Disorder: No - HEENT Hx HEENT Problems: No - RENAL Hx Chronic Kidney Disease: No - ENDOCRINE/METABOLIC Hx Diabetes Mellitus Type 2: Yes - HEMATOLOGICAL/ONCOLOGICAL Hx Blood Disorders: No - INTEGUMENTARY Hx Dermatological Problems: No - MUSCULOSKELETAL/RHEUMATOLOGICAL Hx Musculoskeletal Disorders: No Hx Falls: No - GASTROINTESTINAL Hx Diverticulitis: Yes - GENITOURINARY/GYNECOLOGICAL Hx Genitourinary Disorders: No Other/Comment: uterine fibroids - PSYCHIATRIC Hx Substance Use: No - SURGICAL HISTORY Hx Appendectomy: Yes Hx Cholecystectomy: Yes Hx Coronary Stent: Yes (2007) - ANESTHESIA Hx Anesthesia: Yes Hx Anesthesia Reactions: No Hx Malignant Hyperthermia: No Meds Allergies/Adverse Reactions: Allergies Allergy/AdvReac Type Severity Reaction Status Date / Time lisinopril AdvReac Verified 11/03/16 15:44 - Medications Medications: Current Medications Albuterol/Ipratropium (Duoneb 3 Mg/0.5 Mg (3 Ml) Ud) 3 ml INH RQ6 PRN PRN Reason: Wheezing Last Admin: 11/08/16 19:58 Dose: 3 ml Amlodipine Besylate (Norvasc) 10 mg PO DAILY [facility] Last Admin: 11/09/16 14:38 Dose: 10 mg Docusate Sodium (Colace) 100 mg PO BID [facility] Last Admin: 11/09/16 12:49 Dose: Not Given Ferric Sodium Gluconate Complex (Ferrlecit) 125 mg IVPB DAILY [facility] Stop: 11/10/16 11:01 Last Admin: 11/09/16 09:09 Dose: 125 mg Furosemide (Lasix) 20 mg IVP DAILY [facility] Hydromorphone HCl (Dilaudid) 0.5 mg IVP Q2H PRN PRN Reason: Pain, severe (8-10) Last Admin: 11/09/16 14:56 Dose: 0.5 mg Azithromycin 500 mg/ Sodium (Chloride) 250 mls @ 250 mls/hr IVPB DAILY [facility] Last Admin: 11/09/16 09:08 Dose: 250 mls/hr Ceftriaxone Sodium 1 gm/ (Sodium Chloride) 100 mls @ 100 mls/hr IVPB Q12H [facility] Last Admin: 11/09/16 14:31 Dose: 100 mls/hr Isosorbide Mononitrate (Imdur) 30 mg PO DAILY [facility] Last Admin: 11/09/16 14:40 Dose: 30 mg Ketorolac Tromethamine (Toradol) 30 mg IVP Q6 PRN PRN Reason: Pain, moderate (4-7) Metoprolol Succinate (Toprol Xl) 50 mg PO DAILY [facility] Last Admin: 11/09/16 14:39 Dose: 50 mg Pantoprazole Sodium (Protonix Ec Tab) 40 mg PO DAILY [facility] Last Admin: 11/09/16 14:39 Dose: 40 mg Rosuvastatin Calcium (Crestor) 5 mg PO [facility] Last Admin: 11/08/16 22:15 Dose: 5 mg Physical Exam - Constitutional Appears: Chronically Ill - Head Exam Head Exam: NORMAL INSPECTION, NORMOCEPHALIC - Eye Exam Eye Exam: EOMI, Normal appearance, PERRL - Respiratory Exam Respiratory Exam: Decreased Breath Sounds - Extremities Exam Extremities exam: Positive for: pedal edema. Negative for: tenderness, pedal pulses present - Back Exam Back exam: NORMAL INSPECTION - Neurological Exam Neurological exam: Alert, Oriented x3 - Skin Skin Exam: Dry, Intact, Normal Color, Warm Results - Vital Signs Recent Vital Signs: Last Vital Signs Temp 97.1 F L 11/09/16 16:00 Pulse 108 H 11/09/16 16:00 Resp 16 11/09/16 16:00 BP 137/98 H 11/09/16 16:00 Pulse Ox 95 11/09/16 16:00 - Labs Result Diagrams: 11/09/16 15:23 11/09/16 15:23 Labs: Laboratory Results - last 24 hr 11/08/16 11/09/16 11/09/16 21:23 07:32 11:30 WBC RBC Hgb Hct MCV MCH MCHC RDW Plt Count MPV Neut % (Auto) Lymph % (Auto) [place] % (Auto) Eos % (Auto) Baso % (Auto) Neut # Lymph # [place] # Eos # Baso # Neutrophils % (Manual) Band Neutrophils % Lymphocytes % (Manual) Monocytes % (Manual) Myelocytes % Platelet Estimate Large Platelets Polychromasia Hypochromasia (manual) Poikilocytosis (manual Anisocytosis (manual) Sodium Potassium Chloride Carbon Dioxide Anion Gap BUN Creatinine Est GFR ( Amer) Est GFR (Non-Af Amer) POC Glucose (mg/dL) 128 H 101 92 Random Glucose Calcium Phosphorus Magnesium Total Bilirubin AST ALT Alkaline Phosphatase Total Protein Albumin Globulin Albumin/Globulin Ratio 11/09/16 11/09/16 15:23 16:28 WBC 17.5 H RBC 4.32 Hgb 10.6 L Hct 33.7 L MCV 78.0 L MCH 24.7 L MCHC 31.6 L RDW 14.4 Plt Count 560 H D MPV 8.3 Neut % (Auto) 73.2 Lymph % (Auto) 7.6 L [place] % (Auto) 18.3 H Eos % (Auto) 0.4 Baso % (Auto) 0.5 Neut # 12.8 H Lymph # 1.3 [place] # 3.2 H Eos # 0.1 Baso # 0.1 Neutrophils % (Manual) 66 Band Neutrophils % 1 Lymphocytes % (Manual) 10 L Monocytes % (Manual) 20 H Myelocytes % 3 H Platelet Estimate Normal Large Platelets Present Polychromasia Slight Hypochromasia (manual) Slight Poikilocytosis (manual Slight Anisocytosis (manual) Slight Sodium 141 Potassium 3.5 L Chloride 104 Carbon Dioxide 25 Anion Gap 15 BUN 12 Creatinine 0.5 L Est GFR ( Amer) > 60 Est GFR (Non-Af Amer) > 60 POC Glucose (mg/dL) 111 H Random Glucose 107 H Calcium 9.1 Phosphorus 2.5 Magnesium 2.2 Total Bilirubin < 0.1 L AST 73 H ALT 30 Alkaline Phosphatase 88 Total Protein 6.4 Albumin 3.3 L Globulin 3.1 Albumin/Globulin Ratio 1.0 Assessment & Plan - Assessment and Plan (Free Text) Plan: SIRS Leukocytosis tachycardic Afebrile Blood cultures negative after 24 hours Azithromycin 500 mg iv qd Ceftriaxone 1 gm Iv qd Hypercalcemia Resolved Likely secondary to malignancy NS IVF at 125 cc/hr Lasix 20 mg IV qd T4 1.48 TSH 1.55 PTH - 2 low PTH related peptide levels pending Ionized Ca level pending EKG 11/04 w/sinus tachycardia- official read pending EKG 11/03 - normal QT interval Thyroid ultrasound: 1. Multiple (15) thyroid nodules varying from 2 mm to 1.5 cm. 2. Exophytic nodule or possible right parathyroid mass/ adenoma followup advised. Parathyroid scan recommended in the clinical presentation of hypercalcemia with this finding (see full report). Chest CT: innumerable bilateral pulmonary masses; large 8.2 x 6.2 cm central mass with irregular contours abutting/encasing branches of the pulmonary artery ; small right sided pleural effusion; consistent with metastatic disease; mediastinal adenopathy; 11 mm hepatic lesion within the right hepatic lobe; no pulmonary embolus evident (see full report) CEA <0.3 CA-125 - [address]: innumerable bilateral pulmonary masses; large 8.2 x 6.2 cm central mass with irregular contours abutting/encasing branches of the pulmonary artery ; small right sided pleural effusion; consistent with metastatic disease; mediastinal adenopathy; 11 mm hepatic lesion within the right hepatic lobe; no pulmonary embolus evident (please see full report) heme/onc consult, Dr. Esposito, help appreciated. Wili jiménezn for wheezing Interventional Radiology, Dr. Rivera, consulted. Help appreciated.Plan for lung nodule biopsy nona with as per IR CXR (11/08) right central lung mass, with innumerable bilateral pulmonary masses ; interval left pleural effusion (please see full report) Day 0 s/p right lung nodule biopsy CXR (11/09) small right pneumothorax following lung biospy (please see full report) Chest CT- no pneumothorax. Currently on BiPAP settings: 10/5, 100% RR 14, O2 sat 94%. Monitor Uterine fibroids Abd/pelvis U/S: enlarged, rounded at the fundus, bulky and in homogenous uterus measuring 10.8 x 7.9 x 7.7cm. Fibroid mass at posterior aspect of uterus measuring 6.5 x 5.3 x 5.2cm (please see full report). Percocet 5/325 mg po q4h prn for pain [employer]ler [employer]ic consulted, Dr. Wilson, help appreciated heme/onc consult, Dr. Esposito, help appreciated ABD US: Markedly limited study due to patient condition and pain. Heterogenous echogenic liver limits evaluation. Nodular hepatic contour with perihepatic ascites present. Dialated CBD in setting of cholecystectomy. Right-sided hydronephrosis (see full report). Pelvic US: suboptimal examination which was markedly limited by patient coniditon/pain. Enlarged heterogenous complex apearance of uterine/pelvic mass 18.3 x 13.1 x 17.2 cm. Endometrial stripe not adequately visualized, markedly thickened irregular heterogenous region measuring 6.4 cm (see full report) Dilaudid 0.5 mg IV q2h prn for pain Elevated D-Dimer D-dimer [address]: no pulmonary embolus (please see full report) Doppler U/S of LE- no evidence of b/l DVTs (please see full report) Constipation Likely due to hypercalcemia Colace 100 mg po qd HTN Norvasc 10 mg po qd Toprol 50 mg po qd Coronary Artery Disease Crestor 5 mg po hs Imdur 30 mg po qd Prophylactic Measures GI: Protonix 40 mg po qd DVT: Heparin 5000 units sc q8h, SCDs DW Rodolfo Gan DO, PGY-1 <Frankie Nolasco S - Last Filed: 11/09/16 17:24> Meds - Medications Medications: Current Medications Albuterol/Ipratropium (Duoneb 3 Mg/0.5 Mg (3 Ml) Ud) 3 ml INH RQ6 PRN PRN Reason: Wheezing Last Admin: 11/08/16 19:58 Dose: 3 ml Amlodipine Besylate (Norvasc) 10 mg PO DAILY [facility] Last Admin: 11/09/16 14:38 Dose: 10 mg Docusate Sodium (Colace) 100 mg PO BID [facility] Last Admin: 11/09/16 12:49 Dose: Not Given Ferric Sodium Gluconate Complex (Ferrlecit) 125 mg IVPB DAILY [facility] Stop: 11/10/16 11:01 Last Admin: 11/09/16 09:09 Dose: 125 mg Furosemide (Lasix) 20 mg IVP DAILY [facility] Hydromorphone HCl (Dilaudid) 0.5 mg IVP Q2H PRN PRN Reason: Pain, severe (8-10) Last Admin: 11/09/16 14:56 Dose: 0.5 mg Azithromycin 500 mg/ Sodium (Chloride) 250 mls @ 250 mls/hr IVPB DAILY [facility] Last Admin: 11/09/16 09:08 Dose: 250 mls/hr Ceftriaxone Sodium 1 gm/ (Sodium Chloride) 100 mls @ 100 mls/hr IVPB Q12H [facility] Last Admin: 11/09/16 14:31 Dose: 100 mls/hr Isosorbide Mononitrate (Imdur) 30 mg PO DAILY [facility] Last Admin: 11/09/16 14:40 Dose: 30 mg Ketorolac Tromethamine (Toradol) 30 mg IVP Q6 PRN PRN Reason: Pain, moderate (4-7) Metoprolol Succinate (Toprol Xl) 50 mg PO DAILY [facility] Last Admin: 11/09/16 14:39 Dose: 50 mg Pantoprazole Sodium (Protonix Ec Tab) 40 mg PO DAILY [facility] Last Admin: 11/09/16 14:39 Dose: 40 mg Rosuvastatin Calcium (Crestor) 5 mg PO HS [facility] Last Admin: 11/08/16 22:15 Dose: 5 mg Results - Vital Signs Recent Vital Signs: Last Vital Signs Temp 97.1 F L 11/09/16 16:00 Pulse 108 H 11/09/16 16:00 Resp 16 11/09/16 16:00 BP 137/98 H 11/09/16 16:00 Pulse Ox 95 11/09/16 16:00 - Labs Result Diagrams: 11/09/16 15:23 11/09/16 15:23 Labs: Laboratory Results - last 24 hr 11/08/16 11/09/16 11/09/16 21:23 07:32 11:30 WBC RBC Hgb Hct MCV MCH MCHC RDW Plt Count MPV Neut % (Auto) Lymph % (Auto) [place] % (Auto) Eos % (Auto) Baso % (Auto) Neut # Lymph # [place] # Eos # Baso # Neutrophils % (Manual) Band Neutrophils % Lymphocytes % (Manual) Monocytes % (Manual) Myelocytes % Platelet Estimate Large Platelets Polychromasia Hypochromasia (manual) Poikilocytosis (manual Anisocytosis (manual) Sodium Potassium Chloride Carbon Dioxide Anion Gap BUN Creatinine Est GFR ( Amer) Est GFR (Non-Af Amer) POC Glucose (mg/dL) 128 H 101 92 Random Glucose Calcium Phosphorus Magnesium Total Bilirubin AST ALT Alkaline Phosphatase Total Protein Albumin Globulin Albumin/Globulin Ratio 11/09/16 11/09/16 15:23 16:28 WBC 17.5 H RBC 4.32 Hgb 10.6 L Hct 33.7 L MCV 78.0 L MCH 24.7 L MCHC 31.6 L RDW 14.4 Plt Count 560 H D MPV 8.3 Neut % (Auto) 73.2 Lymph % (Auto) 7.6 L [place] % (Auto) 18.3 H Eos % (Auto) 0.4 Baso % (Auto) 0.5 Neut # 12.8 H Lymph # 1.3 [place] # 3.2 H Eos # 0.1 Baso # 0.1 Neutrophils % (Manual) 66 Band Neutrophils % 1 Lymphocytes % (Manual) 10 L Monocytes % (Manual) 20 H Myelocytes % 3 H Platelet Estimate Normal Large Platelets Present Polychromasia Slight Hypochromasia (manual) Slight Poikilocytosis (manual Slight Anisocytosis (manual) Slight Sodium 141 Potassium 3.5 L Chloride 104 Carbon Dioxide 25 Anion Gap 15 BUN 12 Creatinine 0.5 L Est GFR ( Amer) > 60 Est GFR (Non-Af Amer) > 60 POC Glucose (mg/dL) 111 H Random Glucose 107 H Calcium 9.1 Phosphorus 2.5 Magnesium 2.2 Total Bilirubin < 0.1 L AST 73 H ALT 30 Alkaline Phosphatase 88 Total Protein 6.4 Albumin 3.3 L Globulin 3.1 Albumin/Globulin Ratio 1.0 Attending/Attestation - Attestation I have personally seen and examined this patient.: Yes I have fully participated in the care of the patient.: Yes I have reviewed all pertinent clinical information: Yes Notes (Text): 11/09/16 17:23 Patient seen and examined in the intensive care unit. Status post lung biopsy complicated by shortness of breath. Postbiopsy CT chest showed no pneumothorax patient placed on BiPAP, and received Lasix Continue to monitor Follow up ABG and chest x-ray
[2016-11-09 17:44] LABS: ABG ALLEN TEST POS; CARBOXYHEMOGLOBIN 1.5 % (0.5-1.5); DRAW SITE RR; HHB 5.4 % (0.0-5.0); METHEMOGLOBIN 1.2 % (0.0-3.0)
[2016-11-09] MEDS: Albuterol-Ipratrop 3 mg / 0.5 (3 ml) UD INH PRN (19:36)
[2016-11-10] MEDS: HYDROmorphone 1 mg/ml ISec IVP PRN ×4 (02:25→20:38)
--- NOTE | 2016-11-10 02:37 | CP.PCM.CON ---
History of Present Illness - History of Present Illness History of Present Illness: CT Surgery: Dr. Torrez 66F with SOB s/p lung nodule biopsy. Patient began to complain of SOB once transferred to ICU. Initial CXR demonstrated right sided pneumothorax (15%). Patient was placed on BiPAP and her O2 sat was 95%. Patient will be monitored closely. Current Bipap settings: 10/5, 100% RR 14. Patient is in no respiratory distress, laying in bed comfortably with family at bedside. Family aware of surgery's role if patient's pneumothorax does not resolve. PMHx: HTN, HLD, CAD, uterine fibroids PSHx: appendectomy, cholecystectomy, cardiac catheterization with stents Past Patient History - Infectious Disease Hx of Infectious Diseases: None - Past Medical History & Family History Past Medical History?: Yes - Past Social History Smoking Status: Former Smoker - CARDIAC Hx Cardiac Disorders: Yes Hx Hypertension: Yes - PULMONARY Hx Respiratory Disorders: No - NEUROLOGICAL Hx Neurological Disorder: No - HEENT Hx HEENT Problems: No - RENAL Hx Chronic Kidney Disease: No - ENDOCRINE/METABOLIC Hx Diabetes Mellitus Type 2: Yes - HEMATOLOGICAL/ONCOLOGICAL Hx Blood Disorders: No - INTEGUMENTARY Hx Dermatological Problems: No - MUSCULOSKELETAL/RHEUMATOLOGICAL Hx Musculoskeletal Disorders: No Hx Falls: No - GASTROINTESTINAL Hx Diverticulitis: Yes - GENITOURINARY/GYNECOLOGICAL Hx Genitourinary Disorders: No Other/Comment: uterine fibroids - PSYCHIATRIC Hx Substance Use: No - SURGICAL HISTORY Hx Appendectomy: Yes Hx Cholecystectomy: Yes Hx Coronary Stent: Yes (2007) - ANESTHESIA Hx Anesthesia: Yes Hx Anesthesia Reactions: No Hx Malignant Hyperthermia: No Meds Allergies/Adverse Reactions: Allergies Allergy/AdvReac Type Severity Reaction Status Date / Time lisinopril AdvReac Verified 11/03/16 15:44 - Medications Medications: Current Medications Albuterol/Ipratropium (Duoneb 3 Mg/0.5 Mg (3 Ml) Ud) 3 ml INH RQ6 PRN PRN Reason: Wheezing Last Admin: 11/09/16 19:36 Dose: 3 ml Amlodipine Besylate (Norvasc) 10 mg PO DAILY [facility] Last Admin: 11/09/16 14:38 Dose: 10 mg Docusate Sodium (Colace) 100 mg PO BID [facility] Last Admin: 11/09/16 18:20 Dose: Not Given Ferric Sodium Gluconate Complex (Ferrlecit) 125 mg IVPB DAILY [facility] Stop: 11/10/16 11:01 Last Admin: 11/09/16 09:09 Dose: 125 mg Furosemide (Lasix) 20 mg IVP DAILY [facility] Hydromorphone HCl (Dilaudid) 0.5 mg IVP Q2H PRN PRN Reason: Pain, severe (8-10) Last Admin: 11/09/16 23:57 Dose: 0.5 mg Azithromycin 500 mg/ Sodium (Chloride) 250 mls @ 250 mls/hr IVPB DAILY [facility] Last Admin: 11/09/16 09:08 Dose: 250 mls/hr Ceftriaxone Sodium 1 gm/ (Sodium Chloride) 100 mls @ 100 mls/hr IVPB Q12H [facility] Last Admin: 11/09/16 14:31 Dose: 100 mls/hr Isosorbide Mononitrate (Imdur) 30 mg PO DAILY [facility] Last Admin: 11/09/16 14:40 Dose: 30 mg Ketorolac Tromethamine (Toradol) 30 mg IVP Q6 PRN PRN Reason: Pain, moderate (4-7) Last Admin: 11/09/16 21:54 Dose: 30 mg Metoprolol Succinate (Toprol Xl) 50 mg PO DAILY [facility] Last Admin: 11/09/16 14:39 Dose: 50 mg Pantoprazole Sodium (Protonix Ec Tab) 40 mg PO DAILY [facility] Last Admin: 11/09/16 14:39 Dose: 40 mg Rosuvastatin Calcium (Crestor) 5 mg PO HS [facility] Last Admin: 11/09/16 21:55 Dose: 5 mg Physical Exam - Constitutional Appears: No Acute Distress - Head Exam Head Exam: NORMOCEPHALIC - Respiratory Exam Respiratory Exam: Decreased Breath Sounds - Cardiovascular Exam Cardiovascular Exam: Tachycardia, +S1, +S2 Results - Vital Signs Recent Vital Signs: Last Vital Signs Temp 98.5 F 11/10/16 00:00 Pulse 118 H 11/10/16 02:00 Resp 16 11/10/16 02:00 BP 112/76 11/10/16 02:00 Pulse Ox 95 11/10/16 02:00 - Labs Result Diagrams: 11/09/16 15:23 11/09/16 15:23 Labs: Laboratory Results - last 24 hr 11/09/16 11/09/16 11/09/16 07:32 11:30 15:23 WBC 17.5 H RBC 4.32 Hgb 10.6 L Hct 33.7 L MCV 78.0 L MCH 24.7 L MCHC 31.6 L RDW 14.4 Plt Count 560 H D MPV 8.3 Neut % (Auto) 73.2 Lymph % (Auto) 7.6 L [place] % (Auto) 18.3 H Eos % (Auto) 0.4 Baso % (Auto) 0.5 Neut # 12.8 H Lymph # 1.3 [place] # 3.2 H Eos # 0.1 Baso # 0.1 Neutrophils % (Manual) 66 Band Neutrophils % 1 Lymphocytes % (Manual) 10 L Monocytes % (Manual) 20 H Myelocytes % 3 H Platelet Estimate Normal Large Platelets Present Polychromasia Slight Hypochromasia (manual) Slight Poikilocytosis (manual Slight Anisocytosis (manual) Slight Puncture Site pCO2 pO2 HCO3 ABG pH ABG Total CO2 ABG O2 Saturation ABG Base Excess ABG Hemoglobin ABG Carboxyhemoglobin POC ABG HHb (Measured) ABG Methemoglobin Ken Test A-a O2 Difference Respiratory Index Hgb O2 Saturation FiO2 Inspiratory BiPAP Expiratory BiPAP Sodium 141 Potassium 3.5 L Chloride 104 Carbon Dioxide 25 Anion Gap 15 BUN 12 Creatinine 0.5 L Est GFR ( Amer) > 60 Est GFR (Non-Af Amer) > 60 POC Glucose (mg/dL) 101 92 Random Glucose 107 H Calcium 9.1 Phosphorus 2.5 Magnesium 2.2 Total Bilirubin < 0.1 L AST 73 H ALT 30 Alkaline Phosphatase 88 Total Protein 6.4 Albumin 3.3 L Globulin 3.1 Albumin/Globulin Ratio 1.0 11/09/16 11/09/16 11/09/16 16:28 17:41 21:11 WBC RBC Hgb Hct MCV MCH MCHC RDW Plt Count MPV Neut % (Auto) Lymph % (Auto) [place] % (Auto) Eos % (Auto) Baso % (Auto) Neut # Lymph # [place] # Eos # Baso # Neutrophils % (Manual) Band Neutrophils % Lymphocytes % (Manual) Monocytes % (Manual) Myelocytes % Platelet Estimate Large Platelets Polychromasia Hypochromasia (manual) Poikilocytosis (manual Anisocytosis (manual) Puncture Site Rr pCO2 52 H pO2 65 L HCO3 24.4 ABG pH 7.31 L ABG Total CO2 27.8 ABG O2 Saturation 94.5 L ABG Base Excess -0.6 ABG Hemoglobin 11.1 L ABG Carboxyhemoglobin 1.5 POC ABG HHb (Measured) 5.4 H ABG Methemoglobin 1.2 Ken Test Pos A-a O2 Difference 583.0 Respiratory Index 9.0 Hgb O2 Saturation 92.0 L FiO2 100.0 Inspiratory BiPAP 10 Expiratory BiPAP 5 Sodium Potassium Chloride Carbon Dioxide Anion Gap BUN Creatinine Est GFR ( Amer) Est GFR (Non-Af Amer) POC Glucose (mg/dL) 111 H 92 Random Glucose Calcium Phosphorus Magnesium Total Bilirubin AST ALT Alkaline Phosphatase Total Protein Albumin Globulin Albumin/Globulin Ratio Assessment & Plan - Assessment and Plan (Free Text) Assessment: 66F w/ R sided pneumothorax -Patient currently stable, on BIPAP, satting at 95% -No signs of respiratory distress -If patient begins to desaturate, placement of pigtail catheter is warranted -ICU team and surgery team aware -Will f/u CXR in AM -Will continue to monitor patient closely -Further recs per Dr. Torrez
[2016-11-10] MEDS: HYDROmorphone 0.5 mg/0.5 ml ISec IVP PRN ×3 (03:00→08:25)
[2016-11-10 06:45] LABS: BASO # 0.1 K/uL (0.0-0.2); BASO % 0.4 % (0.0-2.0); EOS # 0.1 K/uL (0.0-0.7); EOS % 0.3 % (0.0-4.0); HEMATOCRIT 31.7 % (34.0-47.0); LYMPH # 1.7 K/uL (1.0-4.3); LYMPH % 9.1 % (20.0-40.0); MEAN CELL VOLUME 78.3 fL (81.0-99.0); MEAN CORPUSCULAR HEMOGLOBIN 24.2 pg (27.0-31.0); MEAN CORPUSCULAR HGB CONC 30.9 g/dL (33.0-37.0); MEAN PLATELET VOLUME 8.7 fL (7.2-11.7); MONO # 3.9 K/uL (0.0-0.8); MONO % 20.2 % (0.0-10.0); PLATELET COUNT 587 K/uL (130-400); RED CELL DISTRIBUTION WIDTH 14.3 % (11.5-14.5); WHITE BLOOD COUNT 19.2 K/uL (4.8-10.8)
[2016-11-10 06:51] LABS: CHLORIDE 102 mmol/L (98-107); POTASSIUM 3.7 mmol/L (3.6-5.2); SODIUM 140 mmol/L (132-148)
[2016-11-10 06:53] LABS: AST/SGOT 71 U/L (14-36); BILIRUBIN,TOTAL 0.5 mg/dL (0.2-1.3); CARBON DIOXIDE 26 mmol/L (22-30); GFR AFRICAN-AMERICAN > 60; TOTAL PROTEIN 6.1 g/dL (6.3-8.3)
[2016-11-10 06:54] LABS: ALKALINE PHOSPHATASE 85 U/L (38-126); ALT/SGPT 24 U/L (9-52); BLOOD UREA NITROGEN 19 mg/dL (7-17); GLUCOSE,RANDOM 82 mg/dL (65-105); MAGNESIUM 2.2 mg/dL (1.6-2.3); PHOSPHOROUS 2.5 mg/dL (2.5-4.5)
--- NOTE | 2016-11-10 08:12 | RAD ---
HISTORY: pneumothorax COMPARISON: 11/09/2016 at 19:01 FINDINGS: LUNGS: Hazy nodular opacities throughout both lungs. PLEURA: Increasing size of the right-sided pneumothorax. CARDIOVASCULAR: Stable. OSSEOUS STRUCTURES: The osseous structures demonstrate degenerative changes. VISUALIZED UPPER ABDOMEN: Upper abdomen is suboptimally evaluated. OTHER FINDINGS: None. IMPRESSION: Increasing size of right-sided pneumothorax. Other findings as above. Findings were discussed with Dr. Meyers at approximately 8:10 a.m. on 11/10/2016.
[2016-11-10 08:31] LABS: BASOPHIL 1 % (0-2); LARGE PLATELETS PRESENT; MYELOCYTE 2 % (0-0); NEUTROPHIL 73 % (50-75); TOTAL CELLS COUNTED 100
--- NOTE | 2016-11-10 08:37 | CARD ---
APPROVED REPORT EKG Measurement Heart [id number] <Conclusion> Sinus tacycardia Inferior infarct, age undetermined Prolonged QT Abnormal ECG
--- NOTE | 2016-11-10 09:02 | CP.PCM.PN ---
Subjective - Date & Time of Evaluation Date of Evaluation: 11/10/16 Time of Evaluation: 08:40 - Subjective Subjective: Patient was seen and examined by me. She had a lung biopsy done of a lung mass. After the procedure I was notified that she appeared to be short of breath, and her SpO2 had also decreased. Per notes by IR there was a small pneumothorax after the biopsy. I looked over the films and I was not able to see the pneumothorax myself. Nevertheless I placed her on Bipap 12/6 @ 100% to see if this could help with the pneumothorax. Later changed down to 10/6 @ 100% since they called and said the inspirations made her uncomfortable. This morning per radiology the repeat CXRAYs by IR seem to show the pneumothorax being slightly larger. Spoke with IR and she may or may not need a chest tube. When I saw her today, family was present and they explain to me that she was not in any respiratory distress now, they say she felt a lot better with the Bipap on. She does have abdominal pain and per discussion with nursing the patient has been asking for the IV Dilaudid a lot. Considering her tumor size will increase the pain medication. As mentioned before we are seeing a patient with a large [employer] malignancy that has spread to at least the lung with large areas of metastasis in the lung, she is short of breath, has pleural effusion on recent CT, and has a small pneumothorax. Currently is full code at this time. We have had several discussion with family about code status and what mechanical intubation is. Unfortunately the overall prognosis appears to be poor. Objective - Vital Signs/Intake and Output Vital Signs (last 24 hours): Temp Pulse Resp BP Pulse Ox 97.8 F 106 H 12 132/76 98 11/10/16 04:00 11/10/16 07:00 11/10/16 07:00 11/10/16 07:00 11/10/16 07:00 Intake and Output: 11/10/16 11/10/16 06:59 18:59 Intake Total 550 Output Total 320 30 Balance 230 -30 - Medications Medications: Current Medications Albuterol/Ipratropium (Duoneb 3 Mg/0.5 Mg (3 Ml) Ud) 3 ml INH RQ6 PRN PRN Reason: Wheezing Last Admin: 11/09/16 19:36 Dose: 3 ml Amlodipine Besylate (Norvasc) 10 mg PO DAILY [facility] Last Admin: 11/09/16 14:38 Dose: 10 mg Docusate Sodium (Colace) 100 mg PO BID [facility] Last Admin: 11/09/16 18:20 Dose: Not Given Ferric Sodium Gluconate Complex (Ferrlecit) 125 mg IVPB DAILY [facility] Stop: 11/10/16 11:01 Last Admin: 11/09/16 09:09 Dose: 125 mg Furosemide (Lasix) 20 mg IVP DAILY [facility] Hydromorphone HCl (Dilaudid) 0.5 mg IVP Q2H PRN PRN Reason: Pain, severe (8-10) Last Admin: 11/10/16 06:00 Dose: 0.5 mg Azithromycin 500 mg/ Sodium (Chloride) 250 mls @ 250 mls/hr IVPB DAILY [facility] Last Admin: 11/09/16 09:08 Dose: 250 mls/hr Ceftriaxone Sodium 1 gm/ (Sodium Chloride) 100 mls @ 100 mls/hr IVPB Q12H [facility] Last Admin: 11/10/16 03:00 Dose: 100 mls/hr Isosorbide Mononitrate (Imdur) 30 mg PO DAILY [facility] Last Admin: 11/09/16 14:40 Dose: 30 mg Ketorolac Tromethamine (Toradol) 30 mg IVP Q6 PRN PRN Reason: Pain, moderate (4-7) Last Admin: 11/10/16 03:49 Dose: 30 mg Metoprolol Succinate (Toprol Xl) 50 mg PO DAILY [facility] Last Admin: 11/09/16 14:39 Dose: 50 mg Pantoprazole Sodium (Protonix Ec Tab) 40 mg PO DAILY [facility] Last Admin: 11/09/16 14:39 Dose: 40 mg Rosuvastatin Calcium (Crestor) 5 mg PO HS [facility] Last Admin: 11/09/16 21:55 Dose: 5 mg - Labs Labs: 11/10/16 06:30 11/10/16 06:30 PT 12.8 SECONDS (9.7-12.2) H 11/03/16 16:53 INR 1.1 11/03/16 16:53 APTT 28 SECONDS (21-34) D 11/03/16 16:53 - Constitutional Appears: Cachectic, Chronically Ill - Head Exam Head Exam: NORMAL INSPECTION - Eye Exam Eye Exam: EOMI - ENT Exam ENT Exam: Mucous Membranes Moist - Respiratory Exam Respiratory Exam: Decreased Breath Sounds, Clear to Ausculation Bilateral, Respiratory Distress Additional comments: She appears tachypnic, however better than yesterday - Cardiovascular Exam Cardiovascular Exam: REGULAR RHYTHM - GI/Abdominal Exam GI & Abdominal Exam: Soft, Tenderness, Normal Bowel Sounds Additional comments: Currently non tender with palpation however she says they just had pain medications - Neurological Exam Neurological Exam: Alert, Awake, Oriented x3 Neuro motor strength exam: Left Upper Extremity: 4, Right Upper Extremity: 4, Left Lower Extremity: 4, Right Lower Extremity: 4 - Psychiatric Exam Psychiatric exam: Depressed, Flat Affect - Skin Skin Exam: Normal Color, Warm Assessment and Plan - Assessment and Plan (Free Text) Assessment: - Assessment and Plan (Free Text) Assessment: Pulmonary Masses, respiratory distress 11/10: Patient has a small pneuthorax at the moment, she had a lung biopsy done . May or may not need a chest tube. The chest CT from 11/09 shows that the bilateral pleural effusions are still present with the left side slightly worse. She was getting IVF for a hypercalcemia so will hold the IVF now. She is on Lasix Chest CT: innumerable bilateral pulmonary masses; large 8.2 x 6.2 cm central mass with irregular contours abutting/encasing branches of the pulmonary artery ; small right sided pleural effusion; consistent with metastatic disease; mediastinal adenopathy; 11 mm hepatic lesion within the right hepatic lobe; no pulmonary embolus evident (please see full report) heme/onc consult, Dr. Esposito, help appreciated. Wili jiménezn for wheezing Interventional Radiology, Dr. Rivera, consulted. Help appreciated. Day 0 s/p right lung nodule biopsy CXR (11/08) right central lung mass, with innumerable bilateral pulmonary masses ; interval left pleural effusion (please see full report) CXR (11/09) small right pneumothorax following lung biospy (please see full report) 94% sat on ventimask BIPAP Uterine/Ovarian Malignancy with metastatic spread 11/10: Still having a lot of pain, will increase pain medication to 1mg Diluadid IV Abd/pelvis U/S: enlarged, rounded at the fundus, bulky and in homogenous uterus measuring 10.8 x 7.9 x 7.7cm. Fibroid mass at posterior aspect of uterus measuring 6.5 x 5.3 x 5.2cm (please see full report). Administrative Receptionist consulted, Dr. Wilson, help appreciated heme/onc consult, Dr. Esposito, help appreciated ABD US: Markedly limited study due to patient condition and pain. Heterogenous echogenic liver limits evaluation. Nodular hepatic contour with perihepatic ascites present. Dialated CBD in setting of cholecystectomy. Right-sided hydronephrosis (see full report). Pelvic US: suboptimal examination which was markedly limited by patient coniditon/pain. Enlarged heterogenous complex apearance of uterine/pelvic mass 18.3 x 13.1 x 17.2 cm. Endometrial stripe not adequately visualized, markedly thickened irregular heterogenous region measuring 6.4 cm (see full report) Leukocytosis 11/10: Patient is on day 2 of Azithromycin and Rocephin. Afebrile. Cultures of blood negative at this time. Possible stress related however need to monitor. Hypercalcemia 11/10: Better now, she has been on lasix as well as IVF. The IVF is now off due to pleural effusions and respiratory distress Likely secondary to malignancy Lasix 20 mg IV qd T4 1.48 TSH 1.55 PTH - 2 low PTH related peptide levels pending Ionized Ca level pending EKG 11/04 w/sinus tachycardia- official read pending EKG 11/03 - normal QT interval Thyroid ultrasound: 1. Multiple (15) thyroid nodules varying from 2 mm to 1.5 cm. 2. Exophytic nodule or possible right parathyroid mass/ adenoma followup advised. Parathyroid scan recommended in the clinical presentation of hypercalcemia with this finding (see full report). Chest CT: innumerable bilateral pulmonary masses; large 8.2 x 6.2 cm central mass with irregular contours abutting/encasing branches of the pulmonary artery ; small right sided pleural effusion; consistent with metastatic disease; mediastinal adenopathy; 11 mm hepatic lesion within the right hepatic lobe; no pulmonary embolus evident (see full report) CEA <0.3 CA-125 - 305 HTN Norvasc 10 mg po qd Toprol 50 mg po qd Coronary Artery Disease Crestor 5 mg po hs Imdur 30 mg po qd Prophylactic Measures GI: Protonix 40 mg po qd DVT: Heparin 5000 units sc q8h, SCDs
--- NOTE | 2016-11-10 10:18 | RAD ---
HISTORY: Small right PTX. Evaluate for increase. COMPARISON: Chest x-ray performed 11/09/16 TECHNIQUE: Chest, one view. FINDINGS: LUNGS: Large right-sided pneumothorax, interval increase in size. Nodular bilateral pulmonary opacities re-identified. No large pleural effusion. Please note that chest x-ray has limited sensitivity for the detection of pulmonary masses. CARDIOVASCULAR: Heart size appears top normal. Ectatic aorta. Atherosclerotic calcifications. OSSEOUS STRUCTURES: Degenerative changes of the spine. VISUALIZED UPPER ABDOMEN: Unremarkable. OTHER FINDINGS: None. IMPRESSION: Large right-sided pneumothorax, interval increase in size. Nodular bilateral pulmonary opacities re-identified. Dr. Rivera is aware of these findings on 11/10/16 at 10:09 a.m..
--- NOTE | 2016-11-10 10:49 | CP.CCUPN ---
Addendum entered and electronically signed by Ledy Reynolds DO 11/10/16 14:04 : Patient currently having a pigtail catheter placed by IR for the right sided pneumothorax. Original Note: <Ledy Reynolds - Last Filed: 11/10/16 10:44> CCU Subjective - Physician Review Subjective (Free Text): Patient was seen and examined at bedside. Patient was on BiPAP since pneumothorax was identified s/p lung biopsy. Overnight patient was placed on nonrebreather but she began to desat and was replaced on BiPAP 06/28 @ 100%. This morning's CXR showed increase in size of the right pneumothorax. Patient is currently on nonrebreather 100%, satting at 92%, in no respiratory distress. Will continue to monitor. CCU Objective - Vital Signs / Intake & Output Vital Signs (Last 4 hours): Vital Signs Pulse Resp BP Pulse Ox 11/10/16 07:00 106 H 12 132/76 98 Intake and Output (Last 8hrs): Intake & Output 11/09/16 11/10/16 11/10/16 22:59 06:59 14:59 Intake Total 310 400 Output Total 620 225 30 Balance -310 175 -30 Weight 191 lb 6 oz Intake: Intake, IV Amount 100 100 Left Wrist 100 Left Forearm 100 Oral 210 300 Output: Urine 620 225 30 Urethral (Sawyer) 620 225 30 Other: # Bowel Movements 0 - Physical Exam Head: Positive for: Atraumatic, Normocephalic Mouth: Positive for: Moist Mucous Membranes Respiratory/Chest: Positive for: Decreased Breath Sounds Cardiovascular: Positive for: Tachycardic Abdomen: Positive for: Normal Bowel Sounds. Negative for: Tenderness, Distention Upper Extremity: Positive for: Normal Inspection. Negative for: Cyanosis, Edema Lower Extremity: Positive for: Normal Inspection. Negative for: Edema, CALF TENDERNESS Neurological: Positive for: GCS=15, CN II-XII Intact Skin: Positive for: Warm, Dry Psychiatric: Positive for: Alert, Oriented x 3 - Medications Active Medications: Active Medications Generic Name Dose Route Start Last Admin Trade Name Freq PRN Reason Stop Dose Admin Albuterol/Ipratropium 3 ml 11/08/16 12:04 11/09/16 19:36 Duoneb 3 Mg/0.5 Mg (3 Ml) Ud INH 3 ml RQ6 PRN Administration Wheezing Amlodipine Besylate 10 mg 11/04/16 10:00 11/09/16 14:38 Norvasc PO 10 mg DAILY [facility] Administration Docusate Sodium 100 mg 11/03/16 22:30 11/09/16 18:20 Colace PO Not Given BID [facility] Ferric Sodium Gluconate Complex 125 mg 11/07/16 11:00 11/09/16 09:09 Ferrlecit IVPB 11/10/16 11:01 125 mg DAILY [facility] Administration Furosemide 20 mg 11/10/16 10:00 Lasix IVP DAILY [facility] Heparin Sodium (Porcine) 5,000 units 11/10/16 22:00 Heparin SC Q12 [facility] Hydromorphone HCl 1 mg 11/10/16 09:14 Dilaudid IVP Q2H PRN Pain, severe (8-10) Azithromycin 500 mg/ Sodium 250 mls @ 250 mls/hr 11/08/16 13:00 11/09/16 09:08 Chloride IVPB 250 mls/hr DAILY [facility] Administration Ceftriaxone Sodium 1 gm/ 100 mls @ 100 mls/hr 11/08/16 15:00 11/10/16 03:00 Sodium Chloride IVPB 100 mls/hr Q12H [facility] Administration Isosorbide Mononitrate 30 mg 11/04/16 10:00 11/09/16 14:40 Imdur PO 30 mg DAILY [facility] Administration Ketorolac Tromethamine 30 mg 11/09/16 09:49 11/10/16 03:49 Toradol IVP 30 mg Q6 PRN Administration Pain, moderate (4-7) Metoprolol Succinate 50 mg 11/04/16 10:00 11/09/16 14:39 Toprol Xl PO 50 mg DAILY [facility] Administration Pantoprazole Sodium 40 mg 11/04/16 10:00 11/09/16 14:39 Protonix Ec Tab PO 40 mg DAILY [facility] Administration Rosuvastatin Calcium 5 mg 11/03/16 22:00 11/09/16 21:55 Crestor PO 5 mg HS [facility] Administration - Patient Studies Lab Studies: Microbiology Studies 11/08/16 13:48 Blood Culture - Preliminary Blood NO GROWTH AFTER 24 HOURS 11/08/16 12:56 Blood Culture - Preliminary Blood NO GROWTH AFTER 24 HOURS Lab Studies 11/10/16 11/10/16 11/09/16 Range/Units 07:17 06:30 21:11 WBC 19.2 H (4.8-10.8) K/uL RBC 4.05 (3.80-5.20) Mil/uL Hgb 9.8 L (11.0-16.0) g/dL Hct 31.7 L (34.0-47.0) % MCV 78.3 L (81.0-99.0) fL MCH 24.2 L (27.0-31.0) pg MCHC 30.9 L (33.0-37.0) g/dL RDW 14.3 (11.5-14.5) % Plt Count 587 H (130-400) K/uL MPV 8.7 (7.2-11.7) fL Neut % (Auto) 70.0 (50.0-75.0) % Lymph % (Auto) 9.1 L (20.0-40.0) % Lea % (Auto) 20.2 H (0.0-10.0) % Eos % (Auto) 0.3 (0.0-4.0) % Baso % (Auto) 0.4 (0.0-2.0) % Neut # 13.5 H (1.8-7.0) K/uL Lymph # 1.7 (1.0-4.3) K/uL Lea # 3.9 H (0.0-0.8) K/uL Eos # 0.1 (0.0-0.7) K/uL Baso # 0.1 (0.0-0.2) K/uL Neutrophils % (Manual) 73 (50-75) % Band Neutrophils % 5 H (0-2) % Lymphocytes % (Manual) 3 L (20-40) % Monocytes % (Manual) 16 H (0-10) % Basophils % (Manual) 1 (0-2) % Myelocytes % 2 H (0-0) % Platelet Estimate Increased H (NORMAL) Large Platelets Present Polychromasia Hypochromasia (manual) Poikilocytosis (manual Basophilic Stippling Slight Anisocytosis (manual) Puncture Site pCO2 (35-45) mm/Hg pO2 (80-100) mm/Hg HCO3 (21-28) mmol/L ABG pH (7.35-7.45) ABG Total CO2 (22-28) mmol/L ABG O2 Saturation (95-98) % ABG Base Excess (-2.0-3.0) mmol/L ABG Hemoglobin (11.7-17.4) g/dL ABG Carboxyhemoglobin (0.5-1.5) % POC ABG HHb (Measured) (0.0-5.0) % ABG Methemoglobin (0.0-3.0) % Ken Test A-a O2 Difference mm/Hg Respiratory Index Hgb O2 Saturation (95.0-98.0) % FiO2 % Inspiratory BiPAP Expiratory BiPAP Sodium 140 (132-148) mmol/L Potassium 3.7 (3.6-5.2) mmol/L Chloride 102 (98-107) mmol/L Carbon Dioxide 26 (22-30) mmol/L Anion Gap 16 (10-20) BUN 19 H (7-17) mg/dL Creatinine 0.6 L (0.7-1.2) MG/DL Est GFR ( Amer) > 60 Est GFR (Non-Af Amer) > 60 POC Glucose (mg/dL) 83 92 (65-110) mg/dL Random Glucose 82 (65-105) mg/dL Calcium 9.0 (8.6-10.4) mg/dl Phosphorus 2.5 (2.5-4.5) mg/dL Magnesium 2.2 (1.6-2.3) mg/dL Total Bilirubin 0.5 (0.2-1.3) mg/dL AST 71 H (14-36) U/L ALT 24 (9-52) U/L Alkaline Phosphatase 85 (38-126) U/L Total Protein 6.1 L (6.3-8.3) g/dL Albumin 3.1 L (3.5-5.0) g/dL Globulin 3.1 (2.2-3.9) gm/dL Albumin/Globulin Ratio 1.0 (1.0-2.1) 11/09/16 11/09/16 11/09/16 Range/Units 17:41 16:28 15:23 WBC 17.5 H (4.8-10.8) K/uL RBC 4.32 (3.80-5.20) Mil/uL Hgb 10.6 L (11.0-16.0) g/dL Hct 33.7 L (34.0-47.0) % MCV 78.0 L (81.0-99.0) fL MCH 24.7 L (27.0-31.0) pg MCHC 31.6 L (33.0-37.0) g/dL RDW 14.4 (11.5-14.5) % Plt Count 560 H D (130-400) K/uL MPV 8.3 (7.2-11.7) fL Neut % (Auto) 73.2 (50.0-75.0) % Lymph % (Auto) 7.6 L (20.0-40.0) % Lea % (Auto) 18.3 H (0.0-10.0) % Eos % (Auto) 0.4 (0.0-4.0) % Baso % (Auto) 0.5 (0.0-2.0) % Neut # 12.8 H (1.8-7.0) K/uL Lymph # 1.3 (1.0-4.3) K/uL Lea # 3.2 H (0.0-0.8) K/uL Eos # 0.1 (0.0-0.7) K/uL Baso # 0.1 (0.0-0.2) K/uL Neutrophils % (Manual) 66 (50-75) % Band Neutrophils % 1 (0-2) % Lymphocytes % (Manual) 10 L (20-40) % Monocytes % (Manual) 20 H (0-10) % Basophils % (Manual) (0-2) % Myelocytes % 3 H (0-0) % Platelet Estimate Normal (NORMAL) Large Platelets Present Polychromasia Slight Hypochromasia (manual) Slight Poikilocytosis (manual Slight Basophilic Stippling Anisocytosis (manual) Slight Puncture Site Rr pCO2 52 H (35-45) mm/Hg pO2 65 L (80-100) mm/Hg HCO3 24.4 (21-28) mmol/L ABG pH 7.31 L (7.35-7.45) ABG Total CO2 27.8 (22-28) mmol/L ABG O2 Saturation 94.5 L (95-98) % ABG Base Excess -0.6 (-2.0-3.0) mmol/L ABG Hemoglobin 11.1 L (11.7-17.4) g/dL ABG Carboxyhemoglobin 1.5 (0.5-1.5) % POC ABG HHb (Measured) 5.4 H (0.0-5.0) % ABG Methemoglobin 1.2 (0.0-3.0) % Ken Test Pos A-a O2 Difference 583.0 mm/Hg Respiratory Index 9.0 Hgb O2 Saturation 92.0 L (95.0-98.0) % FiO2 100.0 % Inspiratory BiPAP 10 Expiratory BiPAP 5 Sodium 141 (132-148) mmol/L Potassium 3.5 L (3.6-5.2) mmol/L Chloride 104 (98-107) mmol/L Carbon Dioxide 25 (22-30) mmol/L Anion Gap 15 (10-20) BUN 12 (7-17) mg/dL Creatinine 0.5 L (0.7-1.2) MG/DL Est GFR ( Amer) > 60 Est GFR (Non-Af Amer) > 60 POC Glucose (mg/dL) 111 H (65-110) mg/dL Random Glucose 107 H (65-105) mg/dL Calcium 9.1 (8.6-10.4) mg/dl Phosphorus 2.5 (2.5-4.5) mg/dL Magnesium 2.2 (1.6-2.3) mg/dL Total Bilirubin < 0.1 L (0.2-1.3) mg/dL AST 73 H (14-36) U/L ALT 30 (9-52) U/L Alkaline Phosphatase 88 (38-126) U/L Total Protein 6.4 (6.3-8.3) g/dL Albumin 3.3 L (3.5-5.0) g/dL Globulin 3.1 (2.2-3.9) gm/dL Albumin/Globulin Ratio 1.0 (1.0-2.1) 11/09/16 Range/Units 11:30 WBC (4.8-10.8) K/uL RBC (3.80-5.20) Mil/uL Hgb (11.0-16.0) g/dL Hct (34.0-47.0) % MCV (81.0-99.0) fL MCH (27.0-31.0) pg MCHC (33.0-37.0) g/dL RDW (11.5-14.5) % Plt Count (130-400) K/uL MPV (7.2-11.7) fL Neut % (Auto) (50.0-75.0) % Lymph % (Auto) (20.0-40.0) % Lea % (Auto) (0.0-10.0) % Eos % (Auto) (0.0-4.0) % Baso % (Auto) (0.0-2.0) % Neut # (1.8-7.0) K/uL Lymph # (1.0-4.3) K/uL Lea # (0.0-0.8) K/uL Eos # (0.0-0.7) K/uL Baso # (0.0-0.2) K/uL Neutrophils % (Manual) (50-75) % Band Neutrophils % (0-2) % Lymphocytes % (Manual) (20-40) % Monocytes % (Manual) (0-10) % Basophils % (Manual) (0-2) % Myelocytes % (0-0) % Platelet Estimate (NORMAL) Large Platelets Polychromasia Hypochromasia (manual) Poikilocytosis (manual Basophilic Stippling Anisocytosis (manual) Puncture Site pCO2 (35-45) mm/Hg pO2 (80-100) mm/Hg HCO3 (21-28) mmol/L ABG pH (7.35-7.45) ABG Total CO2 (22-28) mmol/L ABG O2 Saturation (95-98) % ABG Base Excess (-2.0-3.0) mmol/L ABG Hemoglobin (11.7-17.4) g/dL ABG Carboxyhemoglobin (0.5-1.5) % POC ABG HHb (Measured) (0.0-5.0) % ABG Methemoglobin (0.0-3.0) % Ken Test A-a O2 Difference mm/Hg Respiratory Index Hgb O2 Saturation (95.0-98.0) % FiO2 % Inspiratory BiPAP Expiratory BiPAP Sodium (132-148) mmol/L Potassium (3.6-5.2) mmol/L Chloride (98-107) mmol/L Carbon Dioxide (22-30) mmol/L Anion Gap (10-20) BUN (7-17) mg/dL Creatinine (0.7-1.2) MG/DL Est GFR ( Amer) Est GFR (Non-Af Amer) POC Glucose (mg/dL) 92 (65-110) mg/dL Random Glucose (65-105) mg/dL Calcium (8.6-10.4) mg/dl Phosphorus (2.5-4.5) mg/dL Magnesium (1.6-2.3) mg/dL Total Bilirubin (0.2-1.3) mg/dL AST (14-36) U/L ALT (9-52) U/L Alkaline Phosphatase (38-126) U/L Total Protein (6.3-8.3) g/dL Albumin (3.5-5.0) g/dL Globulin (2.2-3.9) gm/dL Albumin/Globulin Ratio (1.0-2.1) Laboratory Results - last 24 hr 11/09/16 11/09/16 11/09/16 11:30 15:23 16:28 WBC 17.5 H RBC 4.32 Hgb 10.6 L Hct 33.7 L MCV 78.0 L MCH 24.7 L MCHC 31.6 L RDW 14.4 Plt Count 560 H D MPV 8.3 Neut % (Auto) 73.2 Lymph % (Auto) 7.6 L Lea % (Auto) 18.3 H Eos % (Auto) 0.4 Baso % (Auto) 0.5 Neut # 12.8 H Lymph # 1.3 Lea # 3.2 H Eos # 0.1 Baso # 0.1 Neutrophils % (Manual) 66 Band Neutrophils % 1 Lymphocytes % (Manual) 10 L Monocytes % (Manual) 20 H Basophils % (Manual) Myelocytes % 3 H Platelet Estimate Normal Large Platelets Present Polychromasia Slight Hypochromasia (manual) Slight Poikilocytosis (manual Slight Basophilic Stippling Anisocytosis (manual) Slight Puncture Site pCO2 pO2 HCO3 ABG pH ABG Total CO2 ABG O2 Saturation ABG Base Excess ABG Hemoglobin ABG Carboxyhemoglobin POC ABG HHb (Measured) ABG Methemoglobin Ken Test A-a O2 Difference Respiratory Index Hgb O2 Saturation FiO2 Inspiratory BiPAP Expiratory BiPAP Sodium 141 Potassium 3.5 L Chloride 104 Carbon Dioxide 25 Anion Gap 15 BUN 12 Creatinine 0.5 L Est GFR ( Amer) > 60 Est GFR (Non-Af Amer) > 60 POC Glucose (mg/dL) 92 111 H Random Glucose 107 H Calcium 9.1 Phosphorus 2.5 Magnesium 2.2 Total Bilirubin < 0.1 L AST 73 H ALT 30 Alkaline Phosphatase 88 Total Protein 6.4 Albumin 3.3 L Globulin 3.1 Albumin/Globulin Ratio 1.0 11/09/16 11/09/16 11/10/16 17:41 21:11 06:30 WBC 19.2 H RBC 4.05 Hgb 9.8 L Hct 31.7 L MCV 78.3 L MCH 24.2 L MCHC 30.9 L RDW 14.3 Plt Count 587 H MPV 8.7 Neut % (Auto) 70.0 Lymph % (Auto) 9.1 L Lea % (Auto) 20.2 H Eos % (Auto) 0.3 Baso % (Auto) 0.4 Neut # 13.5 H Lymph # 1.7 Lea # 3.9 H Eos # 0.1 Baso # 0.1 Neutrophils % (Manual) 73 Band Neutrophils % 5 H Lymphocytes % (Manual) 3 L Monocytes % (Manual) 16 H Basophils % (Manual) 1 Myelocytes % 2 H Platelet Estimate Increased H Large Platelets Present Polychromasia Hypochromasia (manual) Poikilocytosis (manual Basophilic Stippling Slight Anisocytosis (manual) Puncture Site Rr pCO2 52 H pO2 65 L HCO3 24.4 ABG pH 7.31 L ABG Total CO2 27.8 ABG O2 Saturation 94.5 L ABG Base Excess -0.6 ABG Hemoglobin 11.1 L ABG Carboxyhemoglobin 1.5 POC ABG HHb (Measured) 5.4 H ABG Methemoglobin 1.2 Ken Test Pos A-a O2 Difference 583.0 Respiratory Index 9.0 Hgb O2 Saturation 92.0 L FiO2 100.0 Inspiratory BiPAP 10 Expiratory BiPAP 5 Sodium 140 Potassium 3.7 Chloride 102 Carbon Dioxide 26 Anion Gap 16 BUN 19 H Creatinine 0.6 L Est GFR ( Amer) > 60 Est GFR (Non-Af Amer) > 60 POC Glucose (mg/dL) 92 Random Glucose 82 Calcium 9.0 Phosphorus 2.5 Magnesium 2.2 Total Bilirubin 0.5 AST 71 H ALT 24 Alkaline Phosphatase 85 Total Protein 6.1 L Albumin 3.1 L Globulin 3.1 Albumin/Globulin Ratio 1.0 11/10/16 07:17 WBC RBC Hgb Hct MCV MCH MCHC RDW Plt Count MPV Neut % (Auto) Lymph % (Auto) Lea % (Auto) Eos % (Auto) Baso % (Auto) Neut # Lymph # Lea # Eos # Baso # Neutrophils % (Manual) Band Neutrophils % Lymphocytes % (Manual) Monocytes % (Manual) Basophils % (Manual) Myelocytes % Platelet Estimate Large Platelets Polychromasia Hypochromasia (manual) Poikilocytosis (manual Basophilic Stippling Anisocytosis (manual) Puncture Site pCO2 pO2 HCO3 ABG pH ABG Total CO2 ABG O2 Saturation ABG Base Excess ABG Hemoglobin ABG Carboxyhemoglobin POC ABG HHb (Measured) ABG Methemoglobin Ken Test A-a O2 Difference Respiratory Index Hgb O2 Saturation FiO2 Inspiratory BiPAP Expiratory BiPAP Sodium Potassium Chloride Carbon Dioxide Anion Gap BUN Creatinine Est GFR ( Amer) Est GFR (Non-Af Amer) POC Glucose (mg/dL) 83 Random Glucose Calcium Phosphorus Magnesium Total Bilirubin AST ALT Alkaline Phosphatase Total Protein Albumin Globulin Albumin/Globulin Ratio Fingerstick Blood Sugar Results: 111 Critical Care Progress Note - Nutrition Nutrition: Nutrition Category Date Time Status Heart Healthy Diet [DIET] Diets 11/09/16 Dinner Active Assessment/Plan - Assessment and Plan (Free Text) Plan: Right Sided Pneumothorax CXR (11/08) right central lung mass, with innumerable bilateral pulmonary masses ; interval left pleural effusion (please see full report) Day 1 s/p right lung nodule biopsy CXR (11/09) small right pneumothorax following lung biospy (please see full report) Chest CT- right sided pneumothorax Repeat CXR this morning reveals increased right sided pneumothorax. Patient is currently on 100% nonrebreather, satting 92%. Will continue to monitor Pulmonary Masses Chest CT: innumerable bilateral pulmonary masses; large 8.2 x 6.2 cm central mass with irregular contours abutting/encasing branches of the pulmonary artery ; small right sided pleural effusion; consistent with metastatic disease; mediastinal adenopathy; 11 mm hepatic lesion within the right hepatic lobe; no pulmonary embolus evident (please see full report) heme/onc consult, Dr. Esposito, help appreciated. Duonebs prn for wheezing Interventional Radiology, Dr. Rivera, consulted. Help appreciated.Plan for lung nodule biopsy nona with as per IR CXR (11/08) right central lung mass, with innumerable bilateral pulmonary masses ; interval left pleural effusion (please see full report) Day 1 s/p right lung nodule biopsy CXR (11/09) small right pneumothorax following lung biospy (please see full report) Chest CT- right sided pneumothorax Repeat CXR this morning reveals increased right sided pneumothorax. Patient is currently on 100% nonrebreather, satting 92%. F/U 12pm ABG. Monitor Uterine fibroids Abd/pelvis U/S: enlarged, rounded at the fundus, bulky and in homogenous uterus measuring 10.8 x 7.9 x 7.7cm. Fibroid mass at posterior aspect of uterus measuring 6.5 x 5.3 x 5.2cm (please see full report). Percocet 5/325 mg po q4h prn for pain Subsystems Engineer consulted, Dr. Wilson, help appreciated heme/onc consult, Dr. Esposito, help appreciated ABD US: Markedly limited study due to patient condition and pain. Heterogenous echogenic liver limits evaluation. Nodular hepatic contour with perihepatic ascites present. Dialated CBD in setting of cholecystectomy. Right-sided hydronephrosis (see full report). Pelvic US: suboptimal examination which was markedly limited by patient coniditon/pain. Enlarged heterogenous complex apearance of uterine/pelvic mass 18.3 x 13.1 x 17.2 cm. Endometrial stripe not adequately visualized, markedly thickened irregular heterogenous region measuring 6.4 cm (see full report) Dilaudid 0.5 mg IV q2h prn for pain SIRS Leukocytosis tachycardic Afebrile Blood cultures negative after 24 hours Azithromycin 500 mg iv qd Ceftriaxone 1 gm Iv qd Hypercalcemia Resolved Likely secondary to malignancy NS IVF at 125 cc/hr Lasix 20 mg IV qd T4 1.48 TSH 1.55 PTH - 2 low PTH related peptide levels pending Ionized Ca level pending EKG 11/04 w/sinus tachycardia- official read pending EKG 11/03 - normal QT interval Thyroid ultrasound: 1. Multiple (15) thyroid nodules varying from 2 mm to 1.5 cm. 2. Exophytic nodule or possible right parathyroid mass/ adenoma followup advised. Parathyroid scan recommended in the clinical presentation of hypercalcemia with this finding (see full report). Chest CT: innumerable bilateral pulmonary masses; large 8.2 x 6.2 cm central mass with irregular contours abutting/encasing branches of the pulmonary artery ; small right sided pleural effusion; consistent with metastatic disease; mediastinal adenopathy; 11 mm hepatic lesion within the right hepatic lobe; no pulmonary embolus evident (see full report) CEA <0.3 CA-125 - 305 Elevated D-Dimer D-dimer [address]: no pulmonary embolus (please see full report) Doppler U/S of LE- no evidence of b/l DVTs (please see full report) Constipation Likely due to hypercalcemia Colace 100 mg po qd HTN Norvasc 10 mg po qd Toprol 50 mg po qd Coronary Artery Disease Crestor 5 mg po hs Imdur 30 mg po qd Prophylactic Measures GI: Protonix 40 mg po qd DVT: Heparin 5000 units sc q8h, SCDs DW Dr. Gallo, Rodolfo DANGELO, PGY-1 <Bridger Gallo M - Last Filed: 11/10/16 18:02> CCU Objective - Vital Signs / Intake & Output Vital Signs (Last 4 hours): Vital Signs Temp Pulse Resp BP Pulse Ox 11/10/16 17:51 98.7 F 11/10/16 17:35 114 H 11 L 128/87 89 L 11/10/16 17:00 111 H 12 91 L 11/10/16 16:35 114 H 15 134/71 91 L 11/10/16 16:00 118 H 24 92 L 11/10/16 15:35 112 H 11 L 127/73 91 L 11/10/16 15:00 111 H 11 L 91 L 11/10/16 14:35 111 H 12 124/77 91 L Intake and Output (Last 8hrs): Intake & Output 11/10/16 11/10/16 11/10/16 06:59 14:59 22:59 Intake Total 400 450 750 Output Total 225 30 750 Balance 175 420 0 Weight 191 lb 6 oz Intake: Intake, IV Amount 100 450 Left Wrist 100 450 Oral 300 750 Output: Urine 225 30 750 Urethral (Sawyer) 225 30 750 Stool 0 Other: # Bowel Movements 0 - Medications Active Medications: Active Medications Generic Name Dose Route Start Last Admin Trade Name Freq PRN Reason Stop Dose Admin Albuterol/Ipratropium 3 ml 11/08/16 12:04 11/09/16 19:36 Duoneb 3 Mg/0.5 Mg (3 Ml) Ud INH 3 ml RQ6 PRN Administration Wheezing Amlodipine Besylate 10 mg 11/04/16 10:00 11/10/16 11:20 Norvasc PO 10 mg DAILY [facility] Administration Docusate Sodium 100 mg 11/03/16 22:30 11/10/16 11:20 Colace PO 100 mg BID [facility] Administration Furosemide 20 mg 11/10/16 10:00 11/10/16 11:20 Lasix IVP 20 mg DAILY [facility] Administration Heparin Sodium (Porcine) 5,000 units 11/10/16 22:00 Heparin SC Q12 [facility] Hydromorphone HCl 1 mg 11/10/16 09:14 11/10/16 10:35 Dilaudid IVP 1 mg Q2H PRN Administration Pain, severe (8-10) Azithromycin 500 mg/ Sodium 250 mls @ 250 mls/hr 11/08/16 13:00 11/10/16 11:21 Chloride IVPB 250 mls/hr DAILY [facility] Administration Ceftriaxone Sodium 1 gm/ 100 mls @ 100 mls/hr 11/08/16 15:00 11/10/16 03:00 Sodium Chloride IVPB 100 mls/hr Q12H [facility] Administration Isosorbide Mononitrate 30 mg 11/04/16 10:00 11/10/16 11:20 Imdur PO 30 mg DAILY [facility] Administration Metoprolol Succinate 50 mg 11/04/16 10:00 11/10/16 11:20 Toprol Xl PO 50 mg DAILY [facility] Administration Pantoprazole Sodium 40 mg 11/04/16 10:00 11/10/16 11:20 Protonix Ec Tab PO 40 mg DAILY [facility] Administration Rosuvastatin Calcium 5 mg 11/03/16 22:00 11/09/16 21:55 Crestor PO 5 mg HS [facility] Administration - Patient Studies Lab Studies: Microbiology Studies 11/08/16 13:48 Blood Culture - Preliminary Blood NO GROWTH AFTER 48 HOURS 11/08/16 12:56 Blood Culture - Preliminary Blood NO GROWTH AFTER 48 HOURS Lab Studies 11/10/16 11/10/16 11/10/16 Range/Units 11:26 07:17 06:30 WBC 19.2 H (4.8-10.8) K/uL RBC 4.05 (3.80-5.20) Mil/uL Hgb 9.8 L (11.0-16.0) g/dL Hct 31.7 L (34.0-47.0) % MCV 78.3 L (81.0-99.0) fL MCH 24.2 L (27.0-31.0) pg MCHC 30.9 L (33.0-37.0) g/dL RDW 14.3 (11.5-14.5) % Plt Count 587 H (130-400) K/uL MPV 8.7 (7.2-11.7) fL Neut % (Auto) 70.0 (50.0-75.0) % Lymph % (Auto) 9.1 L (20.0-40.0) % Lea % (Auto) 20.2 H (0.0-10.0) % Eos % (Auto) 0.3 (0.0-4.0) % Baso % (Auto) 0.4 (0.0-2.0) % Neut # 13.5 H (1.8-7.0) K/uL Lymph # 1.7 (1.0-4.3) K/uL Lea # 3.9 H (0.0-0.8) K/uL Eos # 0.1 (0.0-0.7) K/uL Baso # 0.1 (0.0-0.2) K/uL Neutrophils % (Manual) 73 (50-75) % Band Neutrophils % 5 H (0-2) % Lymphocytes % (Manual) 3 L (20-40) % Monocytes % (Manual) 16 H (0-10) % Basophils % (Manual) 1 (0-2) % Myelocytes % 2 H (0-0) % Platelet Estimate Increased H (NORMAL) Large Platelets Present Basophilic Stippling Slight Sodium 140 (132-148) mmol/L Potassium 3.7 (3.6-5.2) mmol/L Chloride 102 (98-107) mmol/L Carbon Dioxide 26 (22-30) mmol/L Anion Gap 16 (10-20) BUN 19 H (7-17) mg/dL Creatinine 0.6 L (0.7-1.2) MG/DL Est GFR ( Amer) > 60 Est GFR (Non-Af Amer) > 60 POC Glucose (mg/dL) 101 83 (65-110) mg/dL Random Glucose 82 (65-105) mg/dL Calcium 9.0 (8.6-10.4) mg/dl Phosphorus 2.5 (2.5-4.5) mg/dL Magnesium 2.2 (1.6-2.3) mg/dL Total Bilirubin 0.5 (0.2-1.3) mg/dL AST 71 H (14-36) U/L ALT 24 (9-52) U/L Alkaline Phosphatase 85 (38-126) U/L Total Protein 6.1 L (6.3-8.3) g/dL Albumin 3.1 L (3.5-5.0) g/dL Globulin 3.1 (2.2-3.9) gm/dL Albumin/Globulin Ratio 1.0 (1.0-2.1) 11/09/16 Range/Units 21:11 WBC (4.8-10.8) K/uL RBC (3.80-5.20) Mil/uL Hgb (11.0-16.0) g/dL Hct (34.0-47.0) % MCV (81.0-99.0) fL MCH (27.0-31.0) pg MCHC (33.0-37.0) g/dL RDW (11.5-14.5) % Plt Count (130-400) K/uL MPV (7.2-11.7) fL Neut % (Auto) (50.0-75.0) % Lymph % (Auto) (20.0-40.0) % Lea % (Auto) (0.0-10.0) % Eos % (Auto) (0.0-4.0) % Baso % (Auto) (0.0-2.0) % Neut # (1.8-7.0) K/uL Lymph # (1.0-4.3) K/uL Lea # (0.0-0.8) K/uL Eos # (0.0-0.7) K/uL Baso # (0.0-0.2) K/uL Neutrophils % (Manual) (50-75) % Band Neutrophils % (0-2) % Lymphocytes % (Manual) (20-40) % Monocytes % (Manual) (0-10) % Basophils % (Manual) (0-2) % Myelocytes % (0-0) % Platelet Estimate (NORMAL) Large Platelets Basophilic Stippling Sodium (132-148) mmol/L Potassium (3.6-5.2) mmol/L Chloride (98-107) mmol/L Carbon Dioxide (22-30) mmol/L Anion Gap (10-20) BUN (7-17) mg/dL Creatinine (0.7-1.2) MG/DL Est GFR ( Amer) Est GFR (Non-Af Amer) POC Glucose (mg/dL) 92 (65-110) mg/dL Random Glucose (65-105) mg/dL Calcium (8.6-10.4) mg/dl Phosphorus (2.5-4.5) mg/dL Magnesium (1.6-2.3) mg/dL Total Bilirubin (0.2-1.3) mg/dL AST (14-36) U/L ALT (9-52) U/L Alkaline Phosphatase (38-126) U/L Total Protein (6.3-8.3) g/dL Albumin (3.5-5.0) g/dL Globulin (2.2-3.9) gm/dL Albumin/Globulin Ratio (1.0-2.1) Laboratory Results - last 24 hr 11/09/16 11/10/16 11/10/16 21:11 06:30 07:17 WBC 19.2 H RBC 4.05 Hgb 9.8 L Hct 31.7 L MCV 78.3 L MCH 24.2 L MCHC 30.9 L RDW 14.3 Plt Count 587 H MPV 8.7 Neut % (Auto) 70.0 Lymph % (Auto) 9.1 L Lea % (Auto) 20.2 H Eos % (Auto) 0.3 Baso % (Auto) 0.4 Neut # 13.5 H Lymph # 1.7 Lea # 3.9 H Eos # 0.1 Baso # 0.1 Neutrophils % (Manual) 73 Band Neutrophils % 5 H Lymphocytes % (Manual) 3 L Monocytes % (Manual) 16 H Basophils % (Manual) 1 Myelocytes % 2 H Platelet Estimate Increased H Large Platelets Present Basophilic Stippling Slight Sodium 140 Potassium 3.7 Chloride 102 Carbon Dioxide 26 Anion Gap 16 BUN 19 H Creatinine 0.6 L Est GFR ( Amer) > 60 Est GFR (Non-Af Amer) > 60 POC Glucose (mg/dL) 92 83 Random Glucose 82 Calcium 9.0 Phosphorus 2.5 Magnesium 2.2 Total Bilirubin 0.5 AST 71 H ALT 24 Alkaline Phosphatase 85 Total Protein 6.1 L Albumin 3.1 L Globulin 3.1 Albumin/Globulin Ratio 1.0 11/10/16 11:26 WBC RBC Hgb Hct MCV MCH MCHC RDW Plt Count MPV Neut % (Auto) Lymph % (Auto) Lea % (Auto) Eos % (Auto) Baso % (Auto) Neut # Lymph # Lea # Eos # Baso # Neutrophils % (Manual) Band Neutrophils % Lymphocytes % (Manual) Monocytes % (Manual) Basophils % (Manual) Myelocytes % Platelet Estimate Large Platelets Basophilic Stippling Sodium Potassium Chloride Carbon Dioxide Anion Gap BUN Creatinine Est GFR ( Amer) Est GFR (Non-Af Amer) POC Glucose (mg/dL) 101 Random Glucose Calcium Phosphorus Magnesium Total Bilirubin AST ALT Alkaline Phosphatase Total Protein Albumin Globulin Albumin/Globulin Ratio Critical Care Progress Note - Nutrition Nutrition: Nutrition Category Date Time Status Heart Healthy Diet [DIET] Diets 11/09/16 Dinner Active Attending/Attestation - Attestation I have personally seen and examined this patient.: Yes I have fully participated in the care of the patient.: Yes I have reviewed all pertinent clinical information: Yes Notes (Text): Today: , November 10, 2016 The Patient was seen and examined at the bedside, Medical records reviewed, all clinical/lab/hemodynamic/radiographic data were reviewed and management issues were discussed and formulated, Events reviewed Pain issues, skin care, head of the bed elevation, glycemic control were addressed. Agree with above treatment plans as transcribed in Dr. Reynolds note
[2016-11-10] MEDS: Ferric Sodium Gluconat Complex 62.5 mg/5 ml Vial IVPB SCH (11:20)
[2016-11-10] MEDS: Metoprolol Succinate 50 mg XL Tab PO SCH (11:20)
[2016-11-10] MEDS: Pantoprazole 40 mg EC Tab PO SCH (11:20)
[2016-11-10] MEDS: Azithromycin 500 MG in Sodium Chloride 0.9% 250 ML IVPB SCH (11:21)
--- NOTE | 2016-11-10 14:42 | CP.PCM.PN ---
Subjective - Date & Time of Evaluation Date of Evaluation: 11/10/16 Time of Evaluation: 11:30 - Subjective Subjective: Thoracic Surgery Dr. Torrez Pt S&E @bedside. worsening pneumothorax on CXR this AM. IR to place pigtail catheter. Objective - Vital Signs/Intake and Output Vital Signs (last 24 hours): Temp Pulse Resp BP Pulse Ox 97.6 F 108 H 12 147/86 98 11/10/16 12:00 11/10/16 09:05 11/10/16 07:00 11/10/16 11:20 11/10/16 07:00 Intake and Output: 11/10/16 11/10/16 06:59 18:59 Intake Total 550 Output Total 320 30 Balance 230 -30 - Medications Medications: Current Medications Albuterol/Ipratropium (Duoneb 3 Mg/0.5 Mg (3 Ml) Ud) 3 ml INH RQ6 PRN PRN Reason: Wheezing Last Admin: 11/09/16 19:36 Dose: 3 ml Amlodipine Besylate (Norvasc) 10 mg PO DAILY [facility] Last Admin: 11/10/16 11:20 Dose: 10 mg Docusate Sodium (Colace) 100 mg PO BID [facility] Last Admin: 11/10/16 11:20 Dose: 100 mg Furosemide (Lasix) 20 mg IVP DAILY [facility] Last Admin: 11/10/16 11:20 Dose: 20 mg Heparin Sodium (Porcine) (Heparin) 5,000 units SC Q12 [facility] Hydromorphone HCl (Dilaudid) 1 mg IVP Q2H PRN PRN Reason: Pain, severe (8-10) Last Admin: 11/10/16 10:35 Dose: 1 mg Azithromycin 500 mg/ Sodium (Chloride) 250 mls @ 250 mls/hr IVPB DAILY [facility] Last Admin: 11/10/16 11:21 Dose: 250 mls/hr Ceftriaxone Sodium 1 gm/ (Sodium Chloride) 100 mls @ 100 mls/hr IVPB Q12H [facility] Last Admin: 11/10/16 03:00 Dose: 100 mls/hr Isosorbide Mononitrate (Imdur) 30 mg PO DAILY [facility] Last Admin: 11/10/16 11:20 Dose: 30 mg Metoprolol Succinate (Toprol Xl) 50 mg PO DAILY [facility] Last Admin: 11/10/16 11:20 Dose: 50 mg Pantoprazole Sodium (Protonix Ec Tab) 40 mg PO DAILY [facility] Last Admin: 11/10/16 11:20 Dose: 40 mg Rosuvastatin Calcium (Crestor) 5 mg PO HS [facility] Last Admin: 11/09/16 21:55 Dose: 5 mg - Labs Labs: 11/10/16 06:30 11/10/16 06:30 PT 12.8 SECONDS (9.7-12.2) H 11/03/16 16:53 INR 1.1 11/03/16 16:53 APTT 28 SECONDS (21-34) D 11/03/16 16:53 - Constitutional Appears: Non-toxic - Head Exam Head Exam: NORMAL INSPECTION - Eye Exam Eye Exam: Normal appearance - ENT Exam ENT Exam: Mucous Membranes Moist - Respiratory Exam Respiratory Exam: Respiratory Distress (mild-moderate). absent: NORMAL BREATHING PATTERN (tachypnic) - Cardiovascular Exam Cardiovascular Exam: Tachycardia, REGULAR RHYTHM - Psychiatric Exam Psychiatric exam: Normal Affect, Normal Mood - Skin Skin Exam: Diaphoretic, Intact, Normal Color, Warm Assessment and Plan - Assessment and Plan (Free Text) Assessment: 66 y/o F w/ pneumothorax s/p lung nodule Bx - Pigtail catheter per IR - no further surgical intervention at this time - please reconsult if needed. Pt discussed w/ Dr. Lore Bay DO PGY1
[2016-11-11] MEDS: HYDROmorphone 1 mg/ml ISec IVP PRN ×8 (02:21→19:30)
[2016-11-11 06:14] LABS: BASO # 0.1 K/uL (0.0-0.2); BASO % 0.6 % (0.0-2.0); EOS # 0.2 K/uL (0.0-0.7); EOS % 1.1 % (0.0-4.0); HEMATOCRIT 32.8 % (34.0-47.0); LYMPH # 2.1 K/uL (1.0-4.3); LYMPH % 9.7 % (20.0-40.0); MEAN CELL VOLUME 78.2 fL (81.0-99.0); MEAN CORPUSCULAR HEMOGLOBIN 24.4 pg (27.0-31.0); MEAN CORPUSCULAR HGB CONC 31.2 g/dL (33.0-37.0); MEAN PLATELET VOLUME 8.8 fL (7.2-11.7); MONO % 18.6 % (0.0-10.0); NRBC % 0.1 % (0.0-2.0); PLATELET COUNT 685 K/uL (130-400); RED CELL DISTRIBUTION WIDTH 14.3 % (11.5-14.5); WHITE BLOOD COUNT 21.7 K/uL (4.8-10.8)
[2016-11-11 06:29] LABS: CHLORIDE 99 mmol/L (98-107)
[2016-11-11 06:30] LABS: POTASSIUM 3.8 mmol/L (3.6-5.2); SODIUM 139 mmol/L (132-148)
[2016-11-11 06:32] LABS: BILIRUBIN,TOTAL 0.5 mg/dL (0.2-1.3); CARBON DIOXIDE 32 mmol/L (22-30); GFR AFRICAN-AMERICAN > 60; TOTAL PROTEIN 6.3 g/dL (6.3-8.3)
[2016-11-11 06:34] LABS: ALKALINE PHOSPHATASE 87 U/L (38-126); ALT/SGPT 23 U/L (9-52); AST/SGOT 77 U/L (14-36); BLOOD UREA NITROGEN 23 mg/dL (7-17); CALCIUM 9.2 mg/dl (8.6-10.4); GLUCOSE,RANDOM 98 mg/dL (65-105); MAGNESIUM 2.4 mg/dL (1.6-2.3)
[2016-11-11 08:34] LABS: EOSINOPHIL 1 % (0-4); NEUTROPHIL 70 % (50-75); NUCLEATED RED BLOOD CELL 1 % (0-0); TOTAL CELLS COUNTED 100
[2016-11-11 08:35] LABS: LARGE PLATELETS PRESENT
--- NOTE | 2016-11-11 08:41 | RAD ---
HISTORY: right sided pneumothorax COMPARISON: No prior. FINDINGS: LUNGS: Multifocal nodular opacities throughout both lungs, again seen. PLEURA: Previously identified pneumothorax has near completely resolved. CARDIOVASCULAR: Stable cardiomediastinal silhouette. OSSEOUS STRUCTURES: The osseous structures demonstrate degenerative changes. VISUALIZED UPPER ABDOMEN: Upper abdomen is suboptimally evaluated. OTHER FINDINGS: Dual introduction of right-sided catheter overlying the projection of the right costophrenic angle. IMPRESSION: Previously identified pneumothorax has near completely resolved. Interval introduction of right-sided pigtail catheter. Continued follow-up radiographs recommended.
[2016-11-11 10:20] LABS: ARTERIAL BLOOD HGB O2 SAT 94.6 % (95.0-98.0); CARBOXYHEMOGLOBIN 1.7 % (0.5-1.5); DRAW SITE RB; HHB 2.7 % (0.0-5.0); METHEMOGLOBIN 1.1 % (0.0-3.0)
--- NOTE | 2016-11-11 10:24 | CP.CCUPN ---
<Ledy Reynolds - Last Filed: 11/11/16 13:36> CCU Subjective - Physician Review Subjective (Free Text): Patient was seen and examined at bedside. S/P POD #1 pigtail insertion. Currently on 100% nonrebreather O2 satting at 94%. Patient started on a fentanyl patch for pain management. Meeting arranged with Dr. Esposito and family to discuss further plan of care. CCU Objective - Vital Signs / Intake & Output Intake and Output (Last 8hrs): Intake & Output 11/10/16 11/11/16 11/11/16 22:59 06:59 14:59 Intake Total 1125 350 Output Total 1500 623 Balance -375 -273 Weight 190 lb 1.6 oz Intake: Intake, IV Amount 100 Left Wrist 100 Oral 1125 250 Output: Chest Tube Drainage 13 Rt chest pigtail 13 Urine 1500 610 Urethral (Sawyer) 1500 610 Stool 0 - Physical Exam Head: Positive for: Atraumatic, Normocephalic Mouth: Positive for: Moist Mucous Membranes Respiratory/Chest: Positive for: Decreased Breath Sounds Cardiovascular: Positive for: Tachycardic Abdomen: Positive for: Normal Bowel Sounds. Negative for: Tenderness, Distention Upper Extremity: Positive for: Normal Inspection. Negative for: Cyanosis, Edema Lower Extremity: Positive for: Normal Inspection. Negative for: Edema, CALF TENDERNESS Neurological: Positive for: GCS=15, CN II-XII Intact Skin: Positive for: Warm, Dry Psychiatric: Positive for: Alert, Oriented x 3 - Medications Active Medications: Active Medications Generic Name Dose Route Start Last Admin Trade Name Freq PRN Reason Stop Dose Admin Albuterol/Ipratropium 3 ml 11/08/16 12:04 11/09/16 19:36 Duoneb 3 Mg/0.5 Mg (3 Ml) Ud INH 3 ml RQ6 PRN Administration Wheezing Amlodipine Besylate 10 mg 11/04/16 10:00 11/10/16 11:20 Norvasc PO 10 mg DAILY [facility] Administration Docusate Sodium 100 mg 11/03/16 22:30 11/10/16 18:17 Colace PO 100 mg BID JOUR[facility]AN Administration Fentanyl 1 patch 11/11/16 10:15 Duragesic TD Q72H JOURDAN Furosemide 20 mg 11/10/16 10:00 11/10/16 11:20 Lasix IVP 20 mg DAILY [facility] Administration Heparin Sodium (Porcine) 5,000 units 11/11/16 14:00 Heparin SC Q8 JOURDAN Hydromorphone HCl 1 mg 11/10/16 09:14 11/11/16 06:40 Dilaudid IVP 1 mg Q2H PRN Administration Pain, severe (8-10) Ceftriaxone Sodium 1 gm/ 100 mls @ 100 mls/hr 11/08/16 15:00 11/11/16 02:37 Sodium Chloride IVPB 100 mls/hr Q12H JOURDAN Administration Isosorbide Mononitrate 30 mg 11/04/16 10:00 11/10/16 11:20 Imdur PO 30 mg DAILY [facility] Administration Metoprolol Succinate 50 mg 11/04/16 10:00 11/10/16 11:20 Toprol Xl PO 50 mg DAILY [facility] Administration Oxycodone HCl 5 mg 11/11/16 12:00 Oxycodone Immediate Release Tab PO 11/13/16 12:01 Q6 JOURDAN Pantoprazole Sodium 40 mg 11/04/16 10:00 11/10/16 11:20 Protonix Ec Tab PO 40 mg DAILY [facility] Administration Sodium Phosphate 2 mg 11/11/16 10:30 K-Phos Neutral PO 11/11/16 14:31 Q4H JOURDAN - Patient Studies Lab Studies: Microbiology Studies 11/08/16 13:48 Blood Culture - Preliminary Blood NO GROWTH AFTER 48 HOURS 11/08/16 12:56 Blood Culture - Preliminary Blood NO GROWTH AFTER 48 HOURS Lab Studies 11/11/16 11/11/16 11/11/16 Range/Units 10:17 06:05 06:00 WBC 21.7 H (4.8-10.8) K/uL RBC 4.19 (3.80-5.20) Mil/uL Hgb 10.2 L (11.0-16.0) g/dL Hct 32.8 L (34.0-47.0) % MCV 78.2 L (81.0-99.0) fL MCH 24.4 L (27.0-31.0) pg MCHC 31.2 L (33.0-37.0) g/dL RDW 14.3 (11.5-14.5) % Plt Count 685 H (130-400) K/uL MPV 8.8 (7.2-11.7) fL Neut % (Auto) 70.0 (50.0-75.0) % Lymph % (Auto) 9.7 L (20.0-40.0) % Kimball % (Auto) 18.6 H (0.0-10.0) % Eos % (Auto) 1.1 (0.0-4.0) % Baso % (Auto) 0.6 (0.0-2.0) % Neut # 15.2 H (1.8-7.0) K/uL Lymph # 2.1 (1.0-4.3) K/uL Kimball # 4.0 H (0.0-0.8) K/uL Eos # 0.2 (0.0-0.7) K/uL Baso # 0.1 (0.0-0.2) K/uL Neutrophils % (Manual) 70 (50-75) % Band Neutrophils % 4 H (0-2) % Lymphocytes % (Manual) 10 L (20-40) % Monocytes % (Manual) 15 H (0-10) % Eosinophils % (Manual) 1 (0-4) % Nucleated RBC % 1 H (0-0) % Platelet Estimate Increased H (NORMAL) Large Platelets Present Polychromasia Slight Hypochromasia (manual) Slight Poikilocytosis (manual Slight Anisocytosis (manual) Slight Microcytosis (manual) Slight Macrocytosis (manual) Slight Puncture Site Rb pCO2 43 (35-45) mm/Hg pO2 70 L (80-100) mm/Hg HCO3 26.1 (21-28) mmol/L ABG pH 7.40 (7.35-7.45) ABG Total CO2 27.9 (22-28) mmol/L ABG O2 Saturation 97.2 (95-98) % ABG Base Excess 1.5 (-2.0-3.0) mmol/L ABG Hemoglobin 10.6 L (11.7-17.4) g/dL ABG Carboxyhemoglobin 1.7 H (0.5-1.5) % POC ABG HHb (Measured) 2.7 (0.0-5.0) % ABG Methemoglobin 1.1 (0.0-3.0) % Ken Test Na Hgb O2 Saturation 94.6 L (95.0-98.0) % Liter Flow 15.0 Sodium 139 (132-148) mmol/L Potassium 3.8 (3.6-5.2) mmol/L Chloride 99 (98-107) mmol/L Carbon Dioxide 32 H (22-30) mmol/L Anion Gap 12 (10-20) BUN 23 H (7-17) mg/dL Creatinine 0.5 L (0.7-1.2) MG/DL Est GFR ( Amer) > 60 Est GFR (Non-Af Amer) > 60 POC Glucose (mg/dL) (65-110) mg/dL Random Glucose 98 (65-105) mg/dL Calcium 9.2 (8.6-10.4) mg/dl Phosphorus 2.0 L (2.5-4.5) mg/dL Magnesium 2.4 H (1.6-2.3) mg/dL Total Bilirubin 0.5 (0.2-1.3) mg/dL AST 77 H (14-36) U/L ALT 23 (9-52) U/L Alkaline Phosphatase 87 (38-126) U/L Total Protein 6.3 (6.3-8.3) g/dL Albumin 3.1 L (3.5-5.0) g/dL Globulin 3.2 (2.2-3.9) gm/dL Albumin/Globulin Ratio 1.0 (1.0-2.1) 11/10/16 Range/Units 11:26 WBC (4.8-10.8) K/uL RBC (3.80-5.20) Mil/uL Hgb (11.0-16.0) g/dL Hct (34.0-47.0) % MCV (81.0-99.0) fL MCH (27.0-31.0) pg MCHC (33.0-37.0) g/dL RDW (11.5-14.5) % Plt Count (130-400) K/uL MPV (7.2-11.7) fL Neut % (Auto) (50.0-75.0) % Lymph % (Auto) (20.0-40.0) % Kimball % (Auto) (0.0-10.0) % Eos % (Auto) (0.0-4.0) % Baso % (Auto) (0.0-2.0) % Neut # (1.8-7.0) K/uL Lymph # (1.0-4.3) K/uL Kimball # (0.0-0.8) K/uL Eos # (0.0-0.7) K/uL Baso # (0.0-0.2) K/uL Neutrophils % (Manual) (50-75) % Band Neutrophils % (0-2) % Lymphocytes % (Manual) (20-40) % Monocytes % (Manual) (0-10) % Eosinophils % (Manual) (0-4) % Nucleated RBC % (0-0) % Platelet Estimate (NORMAL) Large Platelets Polychromasia Hypochromasia (manual) Poikilocytosis (manual Anisocytosis (manual) Microcytosis (manual) Macrocytosis (manual) Puncture Site pCO2 (35-45) mm/Hg pO2 (80-100) mm/Hg HCO3 (21-28) mmol/L ABG pH (7.35-7.45) ABG Total CO2 (22-28) mmol/L ABG O2 Saturation (95-98) % ABG Base Excess (-2.0-3.0) mmol/L ABG Hemoglobin (11.7-17.4) g/dL ABG Carboxyhemoglobin (0.5-1.5) % POC ABG HHb (Measured) (0.0-5.0) % ABG Methemoglobin (0.0-3.0) % Ken Test Hgb O2 Saturation (95.0-98.0) % Liter Flow Sodium (132-148) mmol/L Potassium (3.6-5.2) mmol/L Chloride (98-107) mmol/L Carbon Dioxide (22-30) mmol/L Anion Gap (10-20) BUN (7-17) mg/dL Creatinine (0.7-1.2) MG/DL Est GFR ( Amer) Est GFR (Non-Af Amer) POC Glucose (mg/dL) 101 (65-110) mg/dL Random Glucose (65-105) mg/dL Calcium (8.6-10.4) mg/dl Phosphorus (2.5-4.5) mg/dL Magnesium (1.6-2.3) mg/dL Total Bilirubin (0.2-1.3) mg/dL AST (14-36) U/L ALT (9-52) U/L Alkaline Phosphatase (38-126) U/L Total Protein (6.3-8.3) g/dL Albumin (3.5-5.0) g/dL Globulin (2.2-3.9) gm/dL Albumin/Globulin Ratio (1.0-2.1) Laboratory Results - last 24 hr 11/10/16 11/11/16 11/11/16 11:26 06:00 06:05 WBC 21.7 H RBC 4.19 Hgb 10.2 L Hct 32.8 L MCV 78.2 L MCH 24.4 L MCHC 31.2 L RDW 14.3 Plt Count 685 H MPV 8.8 Neut % (Auto) 70.0 Lymph % (Auto) 9.7 L Kimball % (Auto) 18.6 H Eos % (Auto) 1.1 Baso % (Auto) 0.6 Neut # 15.2 H Lymph # 2.1 Kimball # 4.0 H Eos # 0.2 Baso # 0.1 Neutrophils % (Manual) 70 Band Neutrophils % 4 H Lymphocytes % (Manual) 10 L Monocytes % (Manual) 15 H Eosinophils % (Manual) 1 Nucleated RBC % 1 H Platelet Estimate Increased H Large Platelets Present Polychromasia Slight Hypochromasia (manual) Slight Poikilocytosis (manual Slight Anisocytosis (manual) Slight Microcytosis (manual) Slight Macrocytosis (manual) Slight Puncture Site pCO2 pO2 HCO3 ABG pH ABG Total CO2 ABG O2 Saturation ABG Base Excess ABG Hemoglobin ABG Carboxyhemoglobin POC ABG HHb (Measured) ABG Methemoglobin Ken Test Hgb O2 Saturation Liter Flow Sodium 139 Potassium 3.8 Chloride 99 Carbon Dioxide 32 H Anion Gap 12 BUN 23 H Creatinine 0.5 L Est GFR ( Amer) > 60 Est GFR (Non-Af Amer) > 60 POC Glucose (mg/dL) 101 Random Glucose 98 Calcium 9.2 Phosphorus 2.0 L Magnesium 2.4 H Total Bilirubin 0.5 AST 77 H ALT 23 Alkaline Phosphatase 87 Total Protein 6.3 Albumin 3.1 L Globulin 3.2 Albumin/Globulin Ratio 1.0 11/11/16 10:17 WBC RBC Hgb Hct MCV MCH MCHC RDW Plt Count MPV Neut % (Auto) Lymph % (Auto) Kimball % (Auto) Eos % (Auto) Baso % (Auto) Neut # Lymph # Kimball # Eos # Baso # Neutrophils % (Manual) Band Neutrophils % Lymphocytes % (Manual) Monocytes % (Manual) Eosinophils % (Manual) Nucleated RBC % Platelet Estimate Large Platelets Polychromasia Hypochromasia (manual) Poikilocytosis (manual Anisocytosis (manual) Microcytosis (manual) Macrocytosis (manual) Puncture Site Rb pCO2 43 pO2 70 L HCO3 26.1 ABG pH 7.40 ABG Total CO2 27.9 ABG O2 Saturation 97.2 ABG Base Excess 1.5 ABG Hemoglobin 10.6 L ABG Carboxyhemoglobin 1.7 H POC ABG HHb (Measured) 2.7 ABG Methemoglobin 1.1 Ken Test Na Hgb O2 Saturation 94.6 L Liter Flow 15.0 Sodium Potassium Chloride Carbon Dioxide Anion Gap BUN Creatinine Est GFR ( Amer) Est GFR (Non-Af Amer) POC Glucose (mg/dL) Random Glucose Calcium Phosphorus Magnesium Total Bilirubin AST ALT Alkaline Phosphatase Total Protein Albumin Globulin Albumin/Globulin Ratio Fingerstick Blood Sugar Results: 111 Critical Care Progress Note - Nutrition Nutrition: Nutrition Category Date Time Status Heart Healthy Diet [DIET] Diets 11/09/16 Dinner Active Assessment/Plan - Assessment and Plan (Free Text) Plan: Pulmonary Masses, respiratory distress 11/11: S/P POD #1 pigtail insertion. Currently on 100% nonrebreather O2 satting at 94%. 11/10: Patient has a small pneumothorax at the moment, she had a lung biopsy done 11/09. May or may not need a chest tube. The chest CT from 11/09 shows that the bilateral pleural effusions are still present with the left side slightly worse. She was getting IVF for a hypercalcemia so will hold the IVF now. She is on Lasix Chest CT: innumerable bilateral pulmonary masses; large 8.2 x 6.2 cm central mass with irregular contours abutting/encasing branches of the pulmonary artery ; small right sided pleural effusion; consistent with metastatic disease; mediastinal adenopathy; 11 mm hepatic lesion within the right hepatic lobe; no pulmonary embolus evident (please see full report) heme/onc consult, Dr. Esposito, help appreciated. Wili jiménezn for wheezing Interventional Radiology, Dr. Rivera, consulted. Help appreciated. Day 2 s/p right lung nodule biopsy CXR (11/08) right central lung mass, with innumerable bilateral pulmonary masses ; interval left pleural effusion (please see full report) CXR (11/09) small right pneumothorax following lung biospy (please see full report) Uterine/Ovarian Malignancy with metastatic spread 11/11: 1mg Diluadid IV Q2H. Patient started on a fentanyl patch for pain management. Oxycodone 5mg PO Q6H JOURDAN x 2 days. Meeting arranged with Dr. Esposito and family to discuss further plan of care. 11/10: Still having a lot of pain, will increase pain medication to 1mg Diluadid IV Abd/pelvis U/S: enlarged, rounded at the fundus, bulky and in homogenous uterus measuring 10.8 x 7.9 x 7.7cm. Fibroid mass at posterior aspect of uterus measuring 6.5 x 5.3 x 5.2cm (please see full report). Rn Patient Services consulted, Dr. Wilson, help appreciated heme/onc consult, Dr. Esposito, help appreciated ABD US: Markedly limited study due to patient condition and pain. Heterogenous echogenic liver limits evaluation. Nodular hepatic contour with perihepatic ascites present. Dialated CBD in setting of cholecystectomy. Right-sided hydronephrosis (see full report). Pelvic US: suboptimal examination which was markedly limited by patient coniditon/pain. Enlarged heterogenous complex apearance of uterine/pelvic mass 18.3 x 13.1 x 17.2 cm. Endometrial stripe not adequately visualized, markedly thickened irregular heterogenous region measuring 6.4 cm (see full report) Leukocytosis 11/11: Leukocytosis uptrending to 21.7, currently on day 2 of Rocephin and Zosyn day 1. Possible stress related however need to monitor. 11/10: Patient is on day 2 of Azithromycin and Rocephin. Afebrile. Cultures of blood negative at this time. Hypercalcemia 11/11: Better now, she has been on lasix as well as IVF. The IVF is now off due to pleural effusions and respiratory distress Likely secondary to malignancy Lasix 20 mg IV qd T4 1.48 TSH 1.55 PTH - 2 low PTH related peptide levels pending Ionized Ca level pending EKG 11/04 w/sinus tachycardia- official read pending EKG 11/03 - normal QT interval Thyroid ultrasound: 1. Multiple (15) thyroid nodules varying from 2 mm to 1.5 cm. 2. Exophytic nodule or possible right parathyroid mass/ adenoma followup advised. Parathyroid scan recommended in the clinical presentation of hypercalcemia with this finding (see full report). Chest CT: innumerable bilateral pulmonary masses; large 8.2 x 6.2 cm central mass with irregular contours abutting/encasing branches of the pulmonary artery ; small right sided pleural effusion; consistent with metastatic disease; mediastinal adenopathy; 11 mm hepatic lesion within the right hepatic lobe; no pulmonary embolus evident (see full report) CEA <0.3 CA-125 - 305 HTN Norvasc 10 mg po qd Toprol 50 mg po qd Coronary Artery Disease Imdur 30 mg po qd Prophylactic Measures GI: Protonix 40 mg po qd DVT: Heparin 5000 units sc q8h, SCDs DW Rodolfo Sal DO, PGY-1 <Bridger Gallo M - Last Filed: 11/12/16 22:54> CCU Objective - Vital Signs / Intake & Output Vital Signs (Last 4 hours): Vital Signs Temp Pulse Resp BP Pulse Ox 11/12/16 20:00 98.9 F 11/12/16 19:58 130/79 11/12/16 19:55 109 H 8 L 95 11/12/16 19:00 119 H 14 139/78 96 11/12/16 18:58 139/78 Intake and Output (Last 8hrs): Intake & Output 11/12/16 11/12/16 11/12/16 06:59 14:59 22:59 Intake Total 550 175 120 Output Total 335 365 305 Balance 215 -190 -185 Weight 195 lb 6.4 oz Intake: Intake, IV Amount 300 Right Forearm 300 Oral 250 175 120 Output: Chest Tube Drainage 50 0 Rt chest pigtail 50 0 Urine 285 365 305 Urethral (Sawyer) 285 365 305 - Medications Active Medications: Active Medications Generic Name Dose Route Start Last Admin Trade Name Freq PRN Reason Stop Dose Admin Albuterol/Ipratropium 3 ml 11/08/16 12:04 11/09/16 19:36 Duoneb 3 Mg/0.5 Mg (3 Ml) Ud INH 3 ml RQ6 PRN Administration Wheezing Alprazolam 0.25 mg 11/11/16 20:48 11/12/16 00:45 Xanax PO 11/18/16 20:49 0.25 mg Q8H PRN Administration Anxiety Docusate Sodium 100 mg 11/11/16 12:00 11/12/16 17:35 Colace PO Not Given BID [facility] Fentanyl 1 patch 11/11/16 10:15 11/11/16 11:36 Duragesic TD 1 patch Q72H [facility]OURDAN Administration Furosemide 40 mg 11/13/16 10:00 Lasix IVP DAILY [facility] Heparin Sodium (Porcine) 5,000 units 11/11/16 14:00 11/12/16 15:00 Heparin SC 5,000 units Q8 JOURDAN Administration Hydromorphone HCl 1 mg 11/10/16 09:14 11/12/16 20:30 Dilaudid IVP 1 mg Q2H PRN Administration Pain, severe (8-10) Ceftriaxone Sodium 1 gm/ 100 mls @ 100 mls/hr 11/08/16 15:00 11/12/16 16:00 Sodium Chloride IVPB 100 mls/hr Q12H JOURDAN Administration Piperacillin Sod/Tazobactam 100 mls @ 200 mls/hr 11/11/16 12:00 11/12/16 17:37 Sod 3.375 gm/ Sodium Chloride IVPB 200 mls/hr Q6H JOURDAN Administration Isosorbide Mononitrate 30 mg 11/04/16 10:00 11/12/16 09:57 Imdur PO 30 mg DAILY [facility] Administration Oxycodone HCl 5 mg 11/11/16 12:00 11/12/16 17:36 Oxycodone Immediate Release Tab PO 11/13/16 12:01 Not Given Q6 [facility] Pantoprazole Sodium 40 mg 11/04/16 10:00 11/12/16 09:57 Protonix Ec Tab PO 40 mg DAILY [facility] Administration - Patient Studies Lab Studies: Microbiology Studies 11/08/16 13:48 Blood Culture - Preliminary Blood NO GROWTH AFTER 4 DAYS 11/08/16 12:56 Blood Culture - Preliminary Blood NO GROWTH AFTER 4 DAYS Lab Studies 11/12/16 Range/Units 06:19 WBC 22.2 H (4.8-10.8) K/uL RBC 3.96 (3.80-5.20) Mil/uL Hgb 9.9 L (11.0-16.0) g/dL Hct 31.1 L (34.0-47.0) % MCV 78.7 L (81.0-99.0) fL MCH 25.1 L (27.0-31.0) pg MCHC 31.9 L (33.0-37.0) g/dL RDW 14.5 (11.5-14.5) % Plt Count 675 H (130-400) K/uL MPV 8.3 (7.2-11.7) fL Neut % (Auto) 75.2 H (50.0-75.0) % Lymph % (Auto) 7.1 L (20.0-40.0) % Kimball % (Auto) 16.5 H (0.0-10.0) % Eos % (Auto) 0.6 (0.0-4.0) % Baso % (Auto) 0.6 (0.0-2.0) % Neut # 16.7 H (1.8-7.0) K/uL Lymph # 1.6 (1.0-4.3) K/uL Kimball # 3.7 H (0.0-0.8) K/uL Eos # 0.1 (0.0-0.7) K/uL Baso # 0.1 (0.0-0.2) K/uL Neutrophils % (Manual) 66 (50-75) % Band Neutrophils % 1 (0-2) % Lymphocytes % (Manual) 12 L (20-40) % Reactive Lymphs % 1 H (0-0) % Monocytes % (Manual) 20 H (0-10) % Toxic Granulation Present Platelet Estimate Increased H (NORMAL) Large Platelets Present Giant Platelets Present Polychromasia Slight Hypochromasia (manual) Slight Anisocytosis (manual) Slight Sodium 139 (132-148) mmol/L Potassium 4.1 (3.6-5.2) mmol/L Chloride 100 (98-107) mmol/L Carbon Dioxide 27 (22-30) mmol/L Anion Gap 16 (10-20) BUN 30 H (7-17) mg/dL Creatinine 0.6 L (0.7-1.2) MG/DL Est GFR ( Amer) > 60 Est GFR (Non-Af Amer) > 60 Random Glucose 87 (65-105) mg/dL Calcium 9.8 (8.6-10.4) mg/dl Phosphorus 2.4 L (2.5-4.5) mg/dL Magnesium 2.6 H (1.6-2.3) mg/dL Total Bilirubin 0.2 (0.2-1.3) mg/dL AST 82 H (14-36) U/L ALT 14 (9-52) U/L Alkaline Phosphatase 82 (38-126) U/L Total Protein 6.1 L (6.3-8.3) g/dL Albumin 3.0 L (3.5-5.0) g/dL Globulin 3.0 (2.2-3.9) gm/dL Albumin/Globulin Ratio 1.0 (1.0-2.1) Laboratory Results - last 24 hr 11/12/16 06:19 WBC 22.2 H RBC 3.96 Hgb 9.9 L Hct 31.1 L MCV 78.7 L MCH 25.1 L MCHC 31.9 L RDW 14.5 Plt Count 675 H MPV 8.3 Neut % (Auto) 75.2 H Lymph % (Auto) 7.1 L Kimball % (Auto) 16.5 H Eos % (Auto) 0.6 Baso % (Auto) 0.6 Neut # 16.7 H Lymph # 1.6 Kimball # 3.7 H Eos # 0.1 Baso # 0.1 Neutrophils % (Manual) 66 Band Neutrophils % 1 Lymphocytes % (Manual) 12 L Reactive Lymphs % 1 H Monocytes % (Manual) 20 H Toxic Granulation Present Platelet Estimate Increased H Large Platelets Present Giant Platelets Present Polychromasia Slight Hypochromasia (manual) Slight Anisocytosis (manual) Slight Sodium 139 Potassium 4.1 Chloride 100 Carbon Dioxide 27 Anion Gap 16 BUN 30 H Creatinine 0.6 L Est GFR ( Amer) > 60 Est GFR (Non-Af Amer) > 60 Random Glucose 87 Calcium 9.8 Phosphorus 2.4 L Magnesium 2.6 H Total Bilirubin 0.2 AST 82 H ALT 14 Alkaline Phosphatase 82 Total Protein 6.1 L Albumin 3.0 L Globulin 3.0 Albumin/Globulin Ratio 1.0 Critical Care Progress Note - Nutrition Nutrition: Nutrition Category Date Time Status Heart Healthy Diet [DIET] Diets 11/09/16 Dinner Active Attending/Attestation - Attestation I have personally seen and examined this patient.: Yes I have fully participated in the care of the patient.: Yes I have reviewed all pertinent clinical information: Yes Notes (Text): Today: Monday, November 11, 2016 The Patient was seen and examined at the bedside, Medical records reviewed, all clinical/lab/hemodynamic/radiographic data were reviewed and management issues were discussed and formulated, Events reviewed Pain issues, skin care, head of the bed elevation, glycemic control were addressed. Agree with above treatment plans as transcribed in Dr. Reynolds note
[2016-11-11] MEDS: oxyCODONE 5 mg Immediate Release Tab PO SCH ×3 (11:37→23:57)
[2016-11-11] MEDS: Pantoprazole 40 mg EC Tab PO SCH (11:38)
[2016-11-11] MEDS: Metoprolol Succinate 50 mg XL Tab PO SCH (11:38)
[2016-11-11] MEDS: Piperacillin/Tazobact 3.375 GM in Sodium Chloride 100 ML IVPB SCH ×2 (12:33→18:32)
--- NOTE | 2016-11-11 13:55 | CP.PCM.PN ---
Subjective - Date & Time of Evaluation Date of Evaluation: 11/11/16 Time of Evaluation: 12:00 - Subjective Subjective: Patient is lethargic offering no complaints. Family meeting held attended by patient's Genny, daughter Tamela, son, two other daughters, Doctor Mira, Doctor , Doctor Cammy and myself. Objective - Vital Signs/Intake and Output Vital Signs (last 24 hours): Temp Pulse Resp BP Pulse Ox 97.9 F 112 H 9 L 147/85 92 L 11/11/16 04:00 11/11/16 05:58 11/11/16 05:58 11/11/16 11:37 11/11/16 05:58 Intake and Output: 11/11/16 11/11/16 06:59 18:59 Intake Total 700 Output Total 1373 Balance -673 - Medications Medications: Current Medications Albuterol/Ipratropium (Duoneb 3 Mg/0.5 Mg (3 Ml) Ud) 3 ml INH RQ6 PRN PRN Reason: Wheezing Last Admin: 11/09/16 19:36 Dose: 3 ml Amlodipine Besylate (Norvasc) 10 mg PO DAILY [facility] Last Admin: 11/11/16 10:45 Dose: 10 mg Docusate Sodium (Colace) 100 mg PO BID [facility] Fentanyl (Duragesic) 1 patch TD Q72H [facility] Last Admin: 11/11/16 11:36 Dose: 1 patch Furosemide (Lasix) 20 mg IVP DAILY [facility] Last Admin: 11/11/16 11:37 Dose: 20 mg Heparin Sodium (Porcine) (Heparin) 5,000 units SC Q8 [facility] Hydromorphone HCl (Dilaudid) 1 mg IVP Q2H PRN PRN Reason: Pain, severe (8-10) Last Admin: 11/11/16 10:38 Dose: 1 mg Ceftriaxone Sodium 1 gm/ (Sodium Chloride) 100 mls @ 100 mls/hr IVPB Q12H [facility] Last Admin: 11/11/16 02:37 Dose: 100 mls/hr Piperacillin Sod/Tazobactam (Sod 3.375 gm/ Sodium Chloride) 100 mls @ 200 mls/ hr IVPB Q6H [facility] Isosorbide Mononitrate (Imdur) 30 mg PO DAILY [facility] Last Admin: 11/11/16 11:37 Dose: 30 mg Metoprolol Succinate (Toprol Xl) 50 mg PO DAILY [facility] Last Admin: 11/11/16 11:38 Dose: 50 mg Oxycodone HCl (Oxycodone Immediate Release Tab) 5 mg PO Q6 [facility] Stop: 11/13/16 12:01 Last Admin: 11/11/16 11:37 Dose: 5 mg Pantoprazole Sodium (Protonix Ec Tab) 40 mg PO DAILY [facility] Last Admin: 11/11/16 11:38 Dose: 40 mg Sodium Phosphate (K-Phos Neutral) 500 mg PO Q4H [facility] Stop: 11/11/16 14:31 - Labs Labs: 11/11/16 06:00 11/11/16 06:05 PT 12.8 SECONDS (9.7-12.2) H 11/03/16 16:53 INR 1.1 11/03/16 16:53 APTT 28 SECONDS (21-34) D 11/03/16 16:53 - Constitutional Appears: Chronically Ill - Head Exam Head Exam: ATRAUMATIC - Eye Exam Eye Exam: Normal appearance, PERRL Pupil Exam: NORMAL ACCOMODATION - ENT Exam ENT Exam: Mucous Membranes Dry - Neck Exam Neck Exam: Normal Inspection - Respiratory Exam Respiratory Exam: Accessory Muscle Use, Decreased Breath Sounds Additional comments: On nonrebrither mask, 95% O2, right chest tube in place - Cardiovascular Exam Cardiovascular Exam: Tachycardia - GI/Abdominal Exam GI & Abdominal Exam: Distended, Hypoactive Bowel Sounds - Rectal Exam Rectal Exam: Deferred - Exam Additional comments: Sawyer cath - Back Exam Back Exam: NORMAL INSPECTION - Neurological Exam Neurological Exam: Alert, Altered Neuro motor strength exam: Left Upper Extremity: 2/1, Right Upper Extremity: 2/1 , Left Lower Extremity: 2/1, Right Lower Extremity: 2/1 - Psychiatric Exam Psychiatric exam: Flat Affect - Skin Skin Exam: Pallor Assessment and Plan - Assessment and Plan (Free Text) Assessment: Patient examined in bed, lethargic with non rebrither mask on with 95% O2. Patient looks very sick. Patient does not interact with visitors, reacts with grimacing to painful stimuli. Patient is S/P right chest tube. Latest CXR showed improvement in right pneumothorax. Of concern is B/L pleural effusion and rise in WBC. Patient placed on Rocephin IV and Zosyn IV. The ICU team is debating on thoracentesis , its benefices and possible complications. The meeting began with Doctor Meyers reviewing patient's clinical presentation and Doctor Camelia presented his plan for chemotherapy if patient gets more stable. The meeting lasted for about 90 min. Patient's being very emotional due his 's sickness, left the meeting at its beginning unable to participate. Daughter Tamela was a spoke person for the family. Family is fully aware of very complex diagnosis . Family is already grieving and is very realistic. The main concern they had for the patient was patient level of comfort. Tamela was very specific that if further aggressive interventions in treatement of her mother would only bring more suffering and no guarantees of recovery, family would want patient to be allowed natural . Tamela asked specific questions regarding prognosis, time, and steps of providing comfort at time of . We as a team answered those questions to the satisfaction. Dora Rapp was very specific that all her siblings are feeling the same when it comes to patient's suffering due to disease progression. They prefer natural for their mother. I suggested that Legally, the is the one who should be signing the Document calling for DNR/DNI status. Doctor Chawla concurred. We agreed to leave at that and allow more time for family to consolidate emotions and feelings. It was clearly presented to a family, that prognosis remains very poor and if patient's heart stops, we would have to resuscitate her unless family ( ) says otherwise. Impression * Patient looks more lethargic today * Breathing status improved since the Chest Tube, patient is on non rebrither mask * Family is contemplating goals of care; they do not want patient to suffer and would want her to natural if all ordinary measures fail * is overwhelmed with emotions and was not able to participate in goals of care discussion * All four of patient's children are advocating for natural without use of agressive, live prolonging measures, if meaningful recovery was not expected Suggestion * Continue with IV antibiotics and monitor WBC * Support respiratory status by nonivesive ways of providing O2 * Keep family informed with each change in patient's status * If patient's condition worsened, family will have to decide on Code status Summary All four children are united that they would only want natural for the patient when it occurs. is a legally obligated to make that decision if patient is not capable of decision making. Family will discuss further among themselfs and come up with the answer by Monday or mid next week.
--- NOTE | 2016-11-11 14:13 | CP.PCM.PN ---
Subjective - Date & Time of Evaluation Date of Evaluation: 11/11/16 Time of Evaluation: 14:00 - Subjective Subjective: Patient was seen and examined by me, unfortunately the prognosis remains poor. She is currently still on the 100% nonrebreather mask. An ABG was done and it shows that the respiratory situation is worsening. There was a large family meeting today with the patient's , daughter as well as close family members. Daughter translated for the . Walton through the conversation the patient's was so emotional he was not able to stay in room and had to leave. I continued discussion with daughter and immediate family members in room. I explained the pleural effusion, I explained the WBC that was likely from a pneumonia, and I explained the extent of the malignancy in the lung. We discussed what intubation was. We also discussed code status. Overall prognosis is very poor. Family explains they will continue discussion with themselves. Objective - Vital Signs/Intake and Output Vital Signs (last 24 hours): Temp Pulse Resp BP Pulse Ox 97.9 F 112 H 9 L 147/85 92 L 11/11/16 04:00 11/11/16 05:58 11/11/16 05:58 11/11/16 11:37 11/11/16 05:58 Intake and Output: 11/11/16 11/11/16 06:59 18:59 Intake Total 700 Output Total 1373 Balance -673 - Medications Medications: Current Medications Albuterol/Ipratropium (Duoneb 3 Mg/0.5 Mg (3 Ml) Ud) 3 ml INH RQ6 PRN PRN Reason: Wheezing Last Admin: 11/09/16 19:36 Dose: 3 ml Amlodipine Besylate (Norvasc) 10 mg PO DAILY [facility] Last Admin: 11/11/16 10:45 Dose: 10 mg Docusate Sodium (Colace) 100 mg PO BID [facility] Fentanyl (Duragesic) 1 patch TD Q72H [facility] Last Admin: 11/11/16 11:36 Dose: 1 patch Furosemide (Lasix) 20 mg IVP DAILY [facility] Last Admin: 11/11/16 11:37 Dose: 20 mg Heparin Sodium (Porcine) (Heparin) 5,000 units SC Q8 [facility] Hydromorphone HCl (Dilaudid) 1 mg IVP Q2H PRN PRN Reason: Pain, severe (8-10) Last Admin: 11/11/16 10:38 Dose: 1 mg Ceftriaxone Sodium 1 gm/ (Sodium Chloride) 100 mls @ 100 mls/hr IVPB Q12H [facility] Last Admin: 11/11/16 02:37 Dose: 100 mls/hr Piperacillin Sod/Tazobactam (Sod 3.375 gm/ Sodium Chloride) 100 mls @ 200 mls/ hr IVPB Q6H [facility] Isosorbide Mononitrate (Imdur) 30 mg PO DAILY [facility] Last Admin: 11/11/16 11:37 Dose: 30 mg Metoprolol Succinate (Toprol Xl) 50 mg PO DAILY [facility] Last Admin: 11/11/16 11:38 Dose: 50 mg Oxycodone HCl (Oxycodone Immediate Release Tab) 5 mg PO Q6 [facility] Stop: 11/13/16 12:01 Last Admin: 11/11/16 11:37 Dose: 5 mg Pantoprazole Sodium (Protonix Ec Tab) 40 mg PO DAILY [facility] Last Admin: 11/11/16 11:38 Dose: 40 mg Sodium Phosphate (K-Phos Neutral) 500 mg PO Q4H [facility] Stop: 11/11/16 14:31 - Labs Labs: 11/11/16 06:00 11/11/16 06:05 PT 12.8 SECONDS (9.7-12.2) H 11/03/16 16:53 INR 1.1 11/03/16 16:53 APTT 28 SECONDS (21-34) D 11/03/16 16:53 - Constitutional Appears: Confused, Cachectic, Chronically Ill - Respiratory Exam Respiratory Exam: Accessory Muscle Use, Decreased Breath Sounds, Rales, Rhonchi - Cardiovascular Exam Cardiovascular Exam: REGULAR RHYTHM - GI/Abdominal Exam GI & Abdominal Exam: Distended, Soft - Neurological Exam Neurological Exam: Altered, Awake - Psychiatric Exam Psychiatric exam: Depressed - Skin Skin Exam: Pallor, Warm
--- NOTE | 2016-11-11 14:18 | CARD ---
APPROVED REPORT EKG Measurement Heart [id number] <Conclusion> Sinus tachycardia Possible Left atrial enlargement Low voltage QRS Nonspecific T wave abnormality Abnormal ECG
--- NOTE | 2016-11-11 15:49 | CT ---
PROCEDURE: Date of procedure: 11/10/2016 Procedure: 1. Placement of a right chest tube with CT guidance 2.CT Guidance for procedure, CPT 79944 Medications: 6 cc 1 percent lidocaine, Radiation: 690.24 mGycm HISTORY: Large right pneumothorax TECHNIQUE: Following informed consent and procedure time-out, patient placed supine on CT table and noncontrast CT scan confirmed presence of a large right pneumothorax. The patient's right chest was marked, prepped and draped in the usual sterile fashion. After the skin was anesthetized with 1% lidocaine, a Benjamin catheter was advanced into the pleural space. The catheter was exchanged over an 035 guidewire and tract was dilated to accommodate a 8.5 Luxembourgish pigtail catheter formed within the pleural space. The catheter was secured to patient's skin. A xeroform dressing was applied. The catheter was then attached to a pleurovac and wall suction. Postprocedure CT scan showed re-expansion of the right lung. IMPRESSION: Placement of an 8.5 [place]bourgish right chest tube for pneumothorax. The catheter was placed to wall suction and there was immediate re-expansion of the right lung.
--- NOTE | 2016-11-11 23:09 | CP.PCM.PN ---
Subjective - Date & Time of Evaluation Date of Evaluation: 11/11/16 Time of Evaluation: 12:03 - Subjective Subjective: Late entry Patient was seen earlier today in a family meeting with Dr. Meyers and palliative care present. She remains on 100% non-rebreather. His pneumothorax improved, though WBC is climbing up. Objective - Vital Signs/Intake and Output Vital Signs (last 24 hours): Temp Pulse Resp BP Pulse Ox 98.1 F 112 H 9 L 147/85 92 L 11/11/16 18:00 11/11/16 05:58 11/11/16 05:58 11/11/16 11:37 11/11/16 05:58 Intake and Output: 11/11/16 11/12/16 18:59 06:59 Intake Total 510 Output Total 903 Balance -393 - Medications Medications: Current Medications Albuterol/Ipratropium (Duoneb 3 Mg/0.5 Mg (3 Ml) Ud) 3 ml INH RQ6 PRN PRN Reason: Wheezing Last Admin: 11/09/16 19:36 Dose: 3 ml Alprazolam (Xanax) 0.25 mg PO Q8H PRN PRN Reason: Anxiety Stop: 11/18/16 20:49 Amlodipine Besylate (Norvasc) 10 mg PO DAILY [facility] Last Admin: 11/11/16 10:45 Dose: 10 mg Docusate Sodium (Colace) 100 mg PO BID [facility] Last Admin: 11/11/16 18:31 Dose: 100 mg Fentanyl (Duragesic) 1 patch TD Q72H [facility] Last Admin: 11/11/16 11:36 Dose: 1 patch Furosemide (Lasix) 20 mg IVP DAILY [facility] Last Admin: 11/11/16 11:37 Dose: 20 mg Heparin Sodium (Porcine) (Heparin) 5,000 units SC Q8 [facility] Last Admin: 11/11/16 22:37 Dose: 5,000 units Hydromorphone HCl (Dilaudid) 1 mg IVP Q2H PRN PRN Reason: Pain, severe (8-10) Last Admin: 11/11/16 19:30 Dose: 1 mg Ceftriaxone Sodium 1 gm/ (Sodium Chloride) 100 mls @ 100 mls/hr IVPB Q12H [facility] Last Admin: 11/11/16 15:32 Dose: 100 mls/hr Piperacillin Sod/Tazobactam (Sod 3.375 gm/ Sodium Chloride) 100 mls @ 200 mls/ hr IVPB Q6H [facility] Last Admin: 11/11/16 18:32 Dose: 200 mls/hr Isosorbide Mononitrate (Imdur) 30 mg PO DAILY [facility] Last Admin: 11/11/16 11:37 Dose: 30 mg Metoprolol Succinate (Toprol Xl) 50 mg PO DAILY [facility] Last Admin: 11/11/16 11:38 Dose: 50 mg Oxycodone HCl (Oxycodone Immediate Release Tab) 5 mg PO Q6 [facility] Stop: 11/13/16 12:01 Last Admin: 11/11/16 18:32 Dose: 5 mg Pantoprazole Sodium (Protonix Ec Tab) 40 mg PO DAILY [facility] Last Admin: 11/11/16 11:38 Dose: 40 mg - Labs Labs: 11/11/16 06:00 11/11/16 06:05 PT 12.8 SECONDS (9.7-12.2) H 11/03/16 16:53 INR 1.1 11/03/16 16:53 APTT 28 SECONDS (21-34) D 11/03/16 16:53 - Eye Exam Eye Exam: PERRL - Respiratory Exam Additional comments: b/l coarse sounds, decreased sounds at bases - Cardiovascular Exam Cardiovascular Exam: REGULAR RHYTHM - GI/Abdominal Exam GI & Abdominal Exam: Distended - Extremities Exam Extremities Exam: Pedal Edema Assessment and Plan - Assessment and Plan (Free Text) Assessment: Metastatic disease, 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 Initial immunostains were not able to give a definite diagnosis and further immunostains will be sent. Her clinical condition has been worsening in terms of her respiratory status. F/ U with pulmonary and continue management as per primary team. She is not a candidate for any chemotherapy at this stage (unless she stabilizes clinically) . Family understands the poor prognosis and all their questions were answered. Continue with supportive care for now. Maxwell Esposito
[2016-11-12] MEDS: Piperacillin/Tazobact 3.375 GM in Sodium Chloride 100 ML IVPB SCH ×5 (00:06→23:39)
[2016-11-12] MEDS: HYDROmorphone 1 mg/ml ISec IVP PRN ×7 (04:31→23:37)
[2016-11-12] MEDS: oxyCODONE 5 mg Immediate Release Tab PO SCH ×4 (06:02→23:43)
[2016-11-12 06:26] LABS: BASO # 0.1 K/uL (0.0-0.2); BASO % 0.6 % (0.0-2.0); EOS # 0.1 K/uL (0.0-0.7); EOS % 0.6 % (0.0-4.0); HEMATOCRIT 31.1 % (34.0-47.0); LYMPH # 1.6 K/uL (1.0-4.3); LYMPH % 7.1 % (20.0-40.0); MEAN CELL VOLUME 78.7 fL (81.0-99.0); MEAN CORPUSCULAR HEMOGLOBIN 25.1 pg (27.0-31.0); MEAN CORPUSCULAR HGB CONC 31.9 g/dL (33.0-37.0); MEAN PLATELET VOLUME 8.3 fL (7.2-11.7); MONO # 3.7 K/uL (0.0-0.8); MONO % 16.5 % (0.0-10.0); PLATELET COUNT 675 K/uL (130-400); RED CELL DISTRIBUTION WIDTH 14.5 % (11.5-14.5); WHITE BLOOD COUNT 22.2 K/uL (4.8-10.8)
[2016-11-12 06:40] LABS: CHLORIDE 100 mmol/L (98-107)
[2016-11-12 06:41] LABS: POTASSIUM 4.1 mmol/L (3.6-5.2); SODIUM 139 mmol/L (132-148)
[2016-11-12 06:43] LABS: ALKALINE PHOSPHATASE 82 U/L (38-126); AST/SGOT 82 U/L (14-36); BILIRUBIN,TOTAL 0.2 mg/dL (0.2-1.3); BLOOD UREA NITROGEN 30 mg/dL (7-17); CARBON DIOXIDE 27 mmol/L (22-30); GFR AFRICAN-AMERICAN > 60; GLUCOSE,RANDOM 87 mg/dL (65-105); PHOSPHOROUS 2.4 mg/dL (2.5-4.5); TOTAL PROTEIN 6.1 g/dL (6.3-8.3)
[2016-11-12 06:44] LABS: ALT/SGPT 14 U/L (9-52); CALCIUM 9.8 mg/dl (8.6-10.4); MAGNESIUM 2.6 mg/dL (1.6-2.3)
[2016-11-12 09:31] LABS: NEUTROPHIL 66 % (50-75); REACTIVE LYMPHOCYTES 1 % (0-0); TOTAL CELLS COUNTED 100
[2016-11-12 09:32] LABS: GIANT PLATELETS PRESENT; LARGE PLATELETS PRESENT
[2016-11-12] MEDS: Pantoprazole 40 mg EC Tab PO SCH (09:57)
[2016-11-12] MEDS: Metoprolol Succinate 50 mg XL Tab PO SCH (09:57)
--- NOTE | 2016-11-12 11:11 | RAD ---
HISTORY: Pigtail catheter placement COMPARISON: 11/11/2016 FINDINGS: LUNGS: Multifocal nodular opacities throughout both lungs, again seen. PLEURA: No obvious pneumothorax. . CARDIOVASCULAR: Stable cardiomediastinal silhouette. OSSEOUS STRUCTURES: The osseous structures demonstrate degenerative changes. VISUALIZED UPPER ABDOMEN: Upper abdomen is suboptimally evaluated. OTHER FINDINGS: Re- demonstrated is right-sided catheter overlying the projection of the right lung bases. IMPRESSION: Re- demonstrated is right-sided pigtail catheter. No obvious pneumothorax multiple metastatic bilateral metastatic lesions.
--- NOTE | 2016-11-12 13:32 | CP.PCM.PN ---
Subjective - Date & Time of Evaluation Date of Evaluation: 11/12/16 Time of Evaluation: 13:00 - Subjective Subjective: Patient was seen and examined. Family present as well. As mentioned yesterday we had an extended meeting with the family as well as . She currently is full code at this time. When I saw her today she was awake, alert, trying to respond to questions at times. She was able to interact with family on a limited basis. Family explains she does have a lot of pain and requires the IV medication. She is currently on IV Dilaudid, TD Fentany, as well as IV Toradol for pain. Changed Lasix to 40 BID, also stopped the norvasc as her BP has been on the low side. Outs were 2100, wt increased to 195 WBC is still elevated at this time. Chest tube still present, 100 cc was recorded. 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 Currently is full code at this time. We have had several discussion with family about code status and what mechanical intubation is. Unfortunately the overall prognosis appears to be poor. Objective - Vital Signs/Intake and Output Vital Signs (last 24 hours): Temp Pulse Resp BP Pulse Ox 99.5 F 109 H 18 118/69 96 11/12/16 12:00 11/12/16 12:00 11/12/16 12:00 11/12/16 12:00 11/12/16 12:00 Intake and Output: 11/12/16 11/12/16 06:59 18:59 Intake Total 760 100 Output Total 450 Balance 310 100 - Medications Medications: Current Medications Albuterol/Ipratropium (Duoneb 3 Mg/0.5 Mg (3 Ml) Ud) 3 ml INH RQ6 PRN PRN Reason: Wheezing Last Admin: 11/09/16 19:36 Dose: 3 ml Alprazolam (Xanax) 0.25 mg PO Q8H PRN PRN Reason: Anxiety Stop: 11/18/16 20:49 Last Admin: 11/12/16 00:45 Dose: 0.25 mg Docusate Sodium (Colace) 100 mg PO BID [facility] Last Admin: 11/12/16 09:57 Dose: 100 mg Fentanyl (Duragesic) 1 patch TD Q72H [facility] Last Admin: 11/11/16 11:36 Dose: 1 patch Furosemide (Lasix) 40 mg IVP DAILY [facility] Heparin Sodium (Porcine) (Heparin) 5,000 units SC Q8 [facility] Last Admin: 11/12/16 05:58 Dose: 5,000 units Hydromorphone HCl (Dilaudid) 1 mg IVP Q2H PRN PRN Reason: Pain, severe (8-10) Last Admin: 11/12/16 13:11 Dose: 1 mg Ceftriaxone Sodium 1 gm/ (Sodium Chloride) 100 mls @ 100 mls/hr IVPB Q12H [facility] Last Admin: 11/12/16 02:37 Dose: 100 mls/hr Piperacillin Sod/Tazobactam (Sod 3.375 gm/ Sodium Chloride) 100 mls @ 200 mls/ hr IVPB Q6H [facility] Last Admin: 11/12/16 12:02 Dose: 200 mls/hr Isosorbide Mononitrate (Imdur) 30 mg PO DAILY [facility] Last Admin: 11/12/16 09:57 Dose: 30 mg Oxycodone HCl (Oxycodone Immediate Release Tab) 5 mg PO Q6 [facility] Stop: 11/13/16 12:01 Last Admin: 11/12/16 12:02 Dose: Not Given Pantoprazole Sodium (Protonix Ec Tab) 40 mg PO DAILY [facility] Last Admin: 11/12/16 09:57 Dose: 40 mg - Labs Labs: 11/12/16 06:19 11/12/16 06:19 PT 12.8 SECONDS (9.7-12.2) H 11/03/16 16:53 INR 1.1 11/03/16 16:53 APTT 28 SECONDS (21-34) D 11/03/16 16:53 - Constitutional Appears: In Acute Distress, Chronically Ill - Head Exam Head Exam: NORMAL INSPECTION - Eye Exam Eye Exam: EOMI, Normal appearance - Respiratory Exam Respiratory Exam: Decreased Breath Sounds, Rales - Cardiovascular Exam Cardiovascular Exam: Tachycardia - GI/Abdominal Exam GI & Abdominal Exam: Distended, Soft, Tenderness. absent: Bruit, Firm, Guarding , Rigid - Extremities Exam Extremities Exam: Pedal Edema - Neurological Exam Neurological Exam: Alert, Altered, Awake Neuro motor strength exam: Left Upper Extremity: 4, Right Upper Extremity: 4 - Psychiatric Exam Psychiatric exam: Depressed, Flat Affect - Skin Skin Exam: Normal Color, Warm Assessment and Plan - Assessment and Plan (Free Text) Assessment: Pulmonary Masses, respiratory distress 11/12: Will give more lasix, stop norvasc. The weight increased to 195, follow I and Os. 11/10: Patient has a small pneuthorax at the moment, she had a lung biopsy done . May or may not need a chest tube. The chest CT from 11/09 shows that the bilateral pleural effusions are still present with the left side slightly worse. She was getting IVF for a hypercalcemia so will hold the IVF now. She is on Lasix Chest CT: innumerable bilateral pulmonary masses; large 8.2 x 6.2 cm central mass with irregular contours abutting/encasing branches of the pulmonary artery ; small right sided pleural effusion; consistent with metastatic disease; mediastinal adenopathy; 11 mm hepatic lesion within the right hepatic lobe; no pulmonary embolus evident (please see full report) heme/onc consult, Dr. Esposito, help appreciated. Wili jiménezn for wheezing Interventional Radiology, Dr. Rivera, consulted. Help appreciated. Day 0 s/p right lung nodule biopsy CXR (11/08) right central lung mass, with innumerable bilateral pulmonary masses ; interval left pleural effusion (please see full report) CXR (11/09) small right pneumothorax following lung biospy (please see full report) Uterine/Ovarian Malignancy with metastatic spread 11/12: Pain is controlled at this time with Dilaudid IV, Fentanyl patch, Toradol IV 11/10: Still having a lot of pain, will increase pain medication to 1mg Diluadid IV Abd/pelvis U/S: enlarged, rounded at the fundus, bulky and in homogenous uterus measuring 10.8 x 7.9 x 7.7cm. Fibroid mass at posterior aspect of uterus measuring 6.5 x 5.3 x 5.2cm (please see full report). Visual Developer consulted, Dr. Wilson, help appreciated heme/onc consult, Dr. Esposito, help appreciated ABD US: Markedly limited study due to patient condition and pain. Heterogenous echogenic liver limits evaluation. Nodular hepatic contour with perihepatic ascites present. Dialated CBD in setting of cholecystectomy. Right-sided hydronephrosis (see full report). Pelvic US: suboptimal examination which was markedly limited by patient coniditon/pain. Enlarged heterogenous complex apearance of uterine/pelvic mass 18.3 x 13.1 x 17.2 cm. Endometrial stripe not adequately visualized, markedly thickened irregular heterogenous region measuring 6.4 cm (see full report) Pneumonia, Leukocytosis 11/12: Still elavated at this time, blood cultures negative at this time 11/10: Patient is on day 2 of Azithromycin and Rocephin. Afebrile. Cultures of blood negative at this time. Possible stress related however need to monitor. Hypercalcemia 11/10: Better now, she has been on lasix as well as IVF. The IVF is now off due to pleural effusions and respiratory distress Likely secondary to malignancy Lasix 20 mg IV qd T4 1.48 TSH 1.55 PTH - 2 low PTH related peptide levels pending Ionized Ca level pending EKG 11/04 w/sinus tachycardia- official read pending EKG 11/03 - normal QT interval Thyroid ultrasound: 1. Multiple (15) thyroid nodules varying from 2 mm to 1.5 cm. 2. Exophytic nodule or possible right parathyroid mass/ adenoma followup advised. Parathyroid scan recommended in the clinical presentation of hypercalcemia with this finding (see full report). Chest CT: innumerable bilateral pulmonary masses; large 8.2 x 6.2 cm central mass with irregular contours abutting/encasing branches of the pulmonary artery ; small right sided pleural effusion; consistent with metastatic disease; mediastinal adenopathy; 11 mm hepatic lesion within the right hepatic lobe; no pulmonary embolus evident (see full report) CEA <0.3 CA-125 - 305 HTN 11/12: Holding Noravc, holding Toprolol Coronary Artery Disease Crestor 5 mg po hs Imdur 30 mg po qd Prophylactic Measures GI: Protonix 40 mg po qd DVT: Heparin 5000 units sc q8h, SCD[facility]
--- NOTE | 2016-11-12 18:25 | CP.CCUPN ---
CCU Subjective - Physician Review Events Since Last Encounter (Free Text): 11/12/16 18:25 Patient's overall condition is unchanged. It currently in the 100% FiO2. Patient is in somewhat respiratory distress on and off noted. Family did not make a decision about the DNR yet. CCU Objective - Vital Signs / Intake & Output Vital Signs (Last 4 hours): Vital Signs Temp Pulse Resp BP Pulse Ox 11/12/16 17:00 104 H 18 129/70 95 11/12/16 16:00 99 F 111 H 18 136/81 96 11/12/16 15:00 124 H 19 114/81 95 Intake and Output (Last 8hrs): Intake & Output 11/12/16 11/12/16 11/12/16 06:59 14:59 22:59 Intake Total 550 175 50 Output Total 335 Balance 215 175 50 Weight 195 lb 6.4 oz Intake: Intake, IV Amount 300 Right Forearm 300 Oral 250 175 50 Output: Chest Tube Drainage 50 Rt chest pigtail 50 Urine 285 Urethral (Sawyer) 285 - Physical Exam Head: Positive for: Atraumatic, Normocephalic Mouth: Positive for: Moist Mucous Membranes Respiratory/Chest: Positive for: Decreased Breath Sounds Cardiovascular: Positive for: Tachycardic Abdomen: Positive for: Normal Bowel Sounds. Negative for: Tenderness, Distention Upper Extremity: Positive for: Normal Inspection. Negative for: Cyanosis, Edema Lower Extremity: Positive for: Normal Inspection. Negative for: Edema, CALF TENDERNESS Neurological: Positive for: GCS=15, CN II-XII Intact Skin: Positive for: Warm, Dry Psychiatric: Positive for: Alert, Oriented x 3 - Medications Active Medications: Active Medications Generic Name Dose Route Start Last Admin Trade Name Freq PRN Reason Stop Dose Admin Albuterol/Ipratropium 3 ml 11/08/16 12:04 11/09/16 19:36 Duoneb 3 Mg/0.5 Mg (3 Ml) Ud INH 3 ml RQ6 PRN Administration Wheezing Alprazolam 0.25 mg 11/11/16 20:48 11/12/16 00:45 Xanax PO 11/18/16 20:49 0.25 mg Q8H PRN Administration Anxiety Docusate Sodium 100 mg 11/11/16 12:00 11/12/16 17:35 Colace PO Not Given BID JOURDAN Fentanyl 1 patch 11/11/16 10:15 11/11/16 11:36 Duragesic TD 1 patch Q72H JOURDAN Administration Furosemide 40 mg 11/13/16 10:00 Lasix IVP DAILY JOURDAN Heparin Sodium (Porcine) 5,000 units 11/11/16 14:00 11/12/16 15:00 Heparin SC 5,000 units Q8 JOURDAN Administration Hydromorphone HCl 1 mg 11/10/16 09:14 11/12/16 15:56 Dilaudid IVP 1 mg Q2H PRN Administration Pain, severe (8-10) Ceftriaxone Sodium 1 gm/ 100 mls @ 100 mls/hr 11/08/16 15:00 11/12/16 16:00 Sodium Chloride IVPB 100 mls/hr Q12H JOURDAN Administration Piperacillin Sod/Tazobactam 100 mls @ 200 mls/hr 11/11/16 12:00 11/12/16 17:37 Sod 3.375 gm/ Sodium Chloride IVPB 200 mls/hr Q6H JOURDAN Administration Isosorbide Mononitrate 30 mg 11/04/16 10:00 11/12/16 09:57 Imdur PO 30 mg DAILY JOURDAN Administration Oxycodone HCl 5 mg 11/11/16 12:00 11/12/16 17:36 Oxycodone Immediate Release Tab PO 11/13/16 12:01 Not Given Q6 JOURDAN Pantoprazole Sodium 40 mg 11/04/16 10:00 11/12/16 09:57 Protonix Ec Tab PO 40 mg DAILY JOURDAN Administration - Patient Studies Lab Studies: Microbiology Studies 11/08/16 13:48 Blood Culture - Preliminary Blood NO GROWTH AFTER 4 DAYS 11/08/16 12:56 Blood Culture - Preliminary Blood NO GROWTH AFTER 4 DAYS Lab Studies 11/12/16 Range/Units 06:19 WBC 22.2 H (4.8-10.8) K/uL RBC 3.96 (3.80-5.20) Mil/uL Hgb 9.9 L (11.0-16.0) g/dL Hct 31.1 L (34.0-47.0) % MCV 78.7 L (81.0-99.0) fL MCH 25.1 L (27.0-31.0) pg MCHC 31.9 L (33.0-37.0) g/dL RDW 14.5 (11.5-14.5) % Plt Count 675 H (130-400) K/uL MPV 8.3 (7.2-11.7) fL Neut % (Auto) 75.2 H (50.0-75.0) % Lymph % (Auto) 7.1 L (20.0-40.0) % [place] % (Auto) 16.5 H (0.0-10.0) % Eos % (Auto) 0.6 (0.0-4.0) % Baso % (Auto) 0.6 (0.0-2.0) % Neut # 16.7 H (1.8-7.0) K/uL Lymph # 1.6 (1.0-4.3) K/uL [place] # 3.7 H (0.0-0.8) K/uL Eos # 0.1 (0.0-0.7) K/uL Baso # 0.1 (0.0-0.2) K/uL Neutrophils % (Manual) 66 (50-75) % Band Neutrophils % 1 (0-2) % Lymphocytes % (Manual) 12 L (20-40) % Reactive Lymphs % 1 H (0-0) % Monocytes % (Manual) 20 H (0-10) % Toxic Granulation Present Platelet Estimate Increased H (NORMAL) Large Platelets Present Giant Platelets Present Polychromasia Slight Hypochromasia (manual) Slight Anisocytosis (manual) Slight Sodium 139 (132-148) mmol/L Potassium 4.1 (3.6-5.2) mmol/L Chloride 100 (98-107) mmol/L Carbon Dioxide 27 (22-30) mmol/L Anion Gap 16 (10-20) BUN 30 H (7-17) mg/dL Creatinine 0.6 L (0.7-1.2) MG/DL Est GFR ( Amer) > 60 Est GFR (Non-Af Amer) > 60 Random Glucose 87 (65-105) mg/dL Calcium 9.8 (8.6-10.4) mg/dl Phosphorus 2.4 L (2.5-4.5) mg/dL Magnesium 2.6 H (1.6-2.3) mg/dL Total Bilirubin 0.2 (0.2-1.3) mg/dL AST 82 H (14-36) U/L ALT 14 (9-52) U/L Alkaline Phosphatase 82 (38-126) U/L Total Protein 6.1 L (6.3-8.3) g/dL Albumin 3.0 L (3.5-5.0) g/dL Globulin 3.0 (2.2-3.9) gm/dL Albumin/Globulin Ratio 1.0 (1.0-2.1) Laboratory Results - last 24 hr 11/12/16 06:19 WBC 22.2 H RBC 3.96 Hgb 9.9 L Hct 31.1 L MCV 78.7 L MCH 25.1 L MCHC 31.9 L RDW 14.5 Plt Count 675 H MPV 8.3 Neut % (Auto) 75.2 H Lymph % (Auto) 7.1 L [place] % (Auto) 16.5 H Eos % (Auto) 0.6 Baso % (Auto) 0.6 Neut # 16.7 H Lymph # 1.6 [place] # 3.7 H Eos # 0.1 Baso # 0.1 Neutrophils % (Manual) 66 Band Neutrophils % 1 Lymphocytes % (Manual) 12 L Reactive Lymphs % 1 H Monocytes % (Manual) 20 H Toxic Granulation Present Platelet Estimate Increased H Large Platelets Present Giant Platelets Present Polychromasia Slight Hypochromasia (manual) Slight Anisocytosis (manual) Slight Sodium 139 Potassium 4.1 Chloride 100 Carbon Dioxide 27 Anion Gap 16 BUN 30 H Creatinine 0.6 L Est GFR ( Amer) > 60 Est GFR (Non-Af Amer) > 60 Random Glucose 87 Calcium 9.8 Phosphorus 2.4 L Magnesium 2.6 H Total Bilirubin 0.2 AST 82 H ALT 14 Alkaline Phosphatase 82 Total Protein 6.1 L Albumin 3.0 L Globulin 3.0 Albumin/Globulin Ratio 1.0 Fingerstick Blood Sugar Results: 111 Critical Care Progress Note - Nutrition Nutrition: Nutrition Category Date Time Status Heart Healthy Diet [DIET] Diets 11/09/16 Dinner Active Assessment/Plan - Assessment and Plan (Free Text) Assessment: Metastatic cancer with multiple metastases in the lungs. Overall prognosis very poor
[2016-11-13] MEDS: HYDROmorphone 1 mg/ml ISec IVP PRN ×2 (03:37→05:26)
[2016-11-13] MEDS: oxyCODONE 5 mg Immediate Release Tab PO SCH (05:28)
[2016-11-13] MEDS: Piperacillin/Tazobact 3.375 GM in Sodium Chloride 100 ML IVPB SCH ×4 (05:31→23:41)
[2016-11-13 06:34] LABS: BASO # 0.1 K/uL (0.0-0.2); BASO % 0.4 % (0.0-2.0); EOS % 0.2 % (0.0-4.0); HEMATOCRIT 33.7 % (34.0-47.0); LYMPH # 1.1 K/uL (1.0-4.3); LYMPH % 5.1 % (20.0-40.0); MEAN CELL VOLUME 80.4 fL (81.0-99.0); MEAN CORPUSCULAR HEMOGLOBIN 24.5 pg (27.0-31.0); MEAN CORPUSCULAR HGB CONC 30.4 g/dL (33.0-37.0); MEAN PLATELET VOLUME 8.6 fL (7.2-11.7); MONO % 18.3 % (0.0-10.0); NRBC % 0.2 % (0.0-2.0); PLATELET COUNT 703 K/uL (130-400); RED CELL DISTRIBUTION WIDTH 14.9 % (11.5-14.5)
[2016-11-13 06:50] LABS: CHLORIDE 100 mmol/L (98-107); POTASSIUM 4.7 mmol/L (3.6-5.2); SODIUM 140 mmol/L (132-148)
[2016-11-13 06:52] LABS: AST/SGOT 79 U/L (14-36); BILIRUBIN,TOTAL 0.2 mg/dL (0.2-1.3); CARBON DIOXIDE 32 mmol/L (22-30); GFR AFRICAN-AMERICAN > 60; TOTAL PROTEIN 6.3 g/dL (6.3-8.3)
[2016-11-13 06:53] LABS: ALKALINE PHOSPHATASE 86 U/L (38-126); ALT/SGPT 26 U/L (9-52); BLOOD UREA NITROGEN 34 mg/dL (7-17); CALCIUM 10.5 mg/dl (8.6-10.4); GLUCOSE,RANDOM 86 mg/dL (65-105); PHOSPHOROUS 3.5 mg/dL (2.5-4.5)
[2016-11-13] MEDS ORDERED: Morphine Sulfate 250 MG in Dextrose 5% In Water 240 ML IV ONE (07:51)
--- NOTE | 2016-11-13 08:00 | CP.PCM.PN ---
Subjective - Date & Time of Evaluation Date of Evaluation: 11/13/16 Time of Evaluation: 08:00 - Subjective Subjective: Patient's family at bedside. Currently waiting on additional family members to arrive. They are waiting on patient's with regards to DNR Currently the patient is not responding and non responsive. She appears to be short of breath. HR is 120 tachy sinus, the blood pressure 110 systolic. PO medications have been stopped. Continue with Lasix IV, Abx As mentioned before we are seeing a patient with a large MONOTYPIST malignancy that has spread to at least the lung with large areas of metastasis in the lung, she is short of breath, has pleural effusion on recent CT, and has a small pneumothorax. Currently is full code at this time. We have had several discussion with family about code status and what mechanical intubation is. Unfortunately the overall prognosis appears to be poor. Objective - Vital Signs/Intake and Output Vital Signs (last 24 hours): Temp Pulse Resp BP Pulse Ox 98.2 F 132 H 10 L 131/75 94 L 11/13/16 05:07 11/13/16 06:58 11/13/16 06:58 11/13/16 06:58 11/13/16 06:58 Intake and Output: 11/13/16 11/13/16 06:59 18:59 Intake Total 300 Output Total 505 Balance -205 - Medications Medications: Current Medications Albuterol/Ipratropium (Duoneb 3 Mg/0.5 Mg (3 Ml) Ud) 3 ml INH RQ6 PRN PRN Reason: Wheezing Last Admin: 11/09/16 19:36 Dose: 3 ml Fentanyl (Duragesic) 1 patch TD Q72H [facility] Last Admin: 11/11/16 11:36 Dose: 1 patch Furosemide (Lasix) 40 mg IVP DAILY [facility] Heparin Sodium (Porcine) (Heparin) 5,000 units SC Q8 [facility] Last Admin: 11/13/16 05:31 Dose: 5,000 units Piperacillin Sod/Tazobactam (Sod 3.375 gm/ Sodium Chloride) 100 mls @ 200 mls/ hr IVPB Q6H [facility] Last Admin: 11/13/16 05:31 Dose: 200 mls/hr Morphine Sulfate 250 mg/ (Dextrose) 250 mls @ 1 mls/hr IV .Q24H ONE PRN Reason: Protocol Stop: 11/14/16 07:50 - Labs Labs: 11/13/16 06:29 11/13/16 06:29 PT 12.8 SECONDS (9.7-12.2) H 11/03/16 16:53 INR 1.1 11/03/16 16:53 APTT 28 SECONDS (21-34) D 11/03/16 16:53 - Constitutional Appears: Toxic, In Acute Distress, Chronically Ill - Head Exam Head Exam: NORMAL INSPECTION - ENT Exam ENT Exam: Mucous Membranes Moist - Cardiovascular Exam Cardiovascular Exam: Tachycardia - GI/Abdominal Exam GI & Abdominal Exam: Distended, Soft. absent: Tenderness - Neurological Exam Neurological Exam: Altered - Skin Skin Exam: Pallor, Pallor Assessment and Plan - Assessment and Plan (Free Text) Assessment: Pulmonary Masses, respiratory distress 11/13: This morning family is waiting for reguarding DNR. The patient is not responsive, breathing is labored. We are continuing lasix for now. PO medications have been stopped. Patient is tachy cardic, from both lung malignancy, and also sepsis as well 11/12: Will give more lasix, stop norvasc. The weight increased to 195, follow I and Os. 11/10: Patient has a small pneuthorax at the moment, she had a lung biopsy done . May or may not need a chest tube. The chest CT from 11/09 shows that the bilateral pleural effusions are still present with the left side slightly worse. She was getting IVF for a hypercalcemia so will hold the IVF now. She is on Lasix Chest CT: innumerable bilateral pulmonary masses; large 8.2 x 6.2 cm central mass with irregular contours abutting/encasing branches of the pulmonary artery ; small right sided pleural effusion; consistent with metastatic disease; mediastinal adenopathy; 11 mm hepatic lesion within the right hepatic lobe; no pulmonary embolus evident (please see full report) heme/onc consult, Dr. Esposito, help appreciated. Wili jiménezn for wheezing Interventional Radiology, Dr. Rivera CXR (11/08) right central lung mass, with innumerable bilateral pulmonary masses ; interval left pleural effusion (please see full report) CXR (11/09) small right pneumothorax following lung biospy (please see full report) Uterine/Ovarian Malignancy with metastatic spread 11/13: Patient is not responsive, breathing labored 11/12: Pain is controlled at this time with Dilaudid IV, Fentanyl patch, Toradol IV 11/10: Still having a lot of pain, will increase pain medication to 1mg Diluadid IV Abd/pelvis U/S: enlarged, rounded at the fundus, bulky and in homogenous uterus measuring 10.8 x 7.9 x 7.7cm. Fibroid mass at posterior aspect of uterus measuring 6.5 x 5.3 x 5.2cm (please see full report). Aircraft Design Engineer consulted, Dr. Wilson, help appreciated heme/onc consult, Dr. Esposito, help appreciated ABD US: Markedly limited study due to patient condition and pain. Heterogenous echogenic liver limits evaluation. Nodular hepatic contour with perihepatic ascites present. Dialated CBD in setting of cholecystectomy. Right-sided hydronephrosis (see full report). Pelvic US: suboptimal examination which was markedly limited by patient coniditon/pain. Enlarged heterogenous complex apearance of uterine/pelvic mass 18.3 x 13.1 x 17.2 cm. Endometrial stripe not adequately visualized, markedly thickened irregular heterogenous region measuring 6.4 cm (see full report) Sepsis from Pneumonia - likley secondary from obstruction in the lungs from cancer 11/13: Unfortunately WBC worsening, patient is sepsis. Low BP, pending DNR at this time. 11/12: Still elavated at this time, blood cultures negative at this time 11/10: Patient is on day 2 of Azithromycin and Rocephin. Afebrile. Cultures of blood negative at this time. Possible stress related however need to monitor. Hypercalcemia 11/10: Better now, she has been on lasix as well as IVF. The IVF is now off due to pleural effusions and respiratory distress Likely secondary to malignancy Lasix 20 mg IV qd T4 1.48 TSH 1.55 PTH - 2 low PTH related peptide levels pending Ionized Ca level pending EKG 11/04 w/sinus tachycardia- official read pending EKG 11/03 - normal QT interval Thyroid ultrasound: 1. Multiple (15) thyroid nodules varying from 2 mm to 1.5 cm. 2. Exophytic nodule or possible right parathyroid mass/ adenoma followup advised. Parathyroid scan recommended in the clinical presentation of hypercalcemia with this finding (see full report). Chest CT: innumerable bilateral pulmonary masses; large 8.2 x 6.2 cm central mass with irregular contours abutting/encasing branches of the pulmonary artery ; small right sided pleural effusion; consistent with metastatic disease; mediastinal adenopathy; 11 mm hepatic lesion within the right hepatic lobe; no pulmonary embolus evident (see full report) CEA <0.3 CA-125 - 305 HTN 11/12: Holding Noravc, holding Toprolol Coronary Artery Disease Crestor 5 mg po hs Imdur 30 mg po qd Prophylactic Measures GI: Protonix 40 mg po qd DVT: Heparin 5000 units sc q8h, SCDs
[2016-11-13 08:58] LABS: EOSINOPHIL 1 % (0-4); NEUTROPHIL 73 % (50-75); TOTAL CELLS COUNTED 100
[2016-11-13 09:00] LABS: LARGE PLATELETS PRESENT
[2016-11-13 09:03] LABS: GIANT PLATELETS PRESENT
--- NOTE | 2016-11-13 11:33 | CP.CCUPN ---
CCU Subjective - Physician Review Events Since Last Encounter (Free Text): 11/13/16 11:33 Spoke to the family today. Family signed a DNR. Comfort care. On morphine drip continue the supportive care CCU Objective - Vital Signs / Intake & Output Vital Signs (Last 4 hours): Vital Signs Temp Pulse Resp BP Pulse Ox 11/13/16 10:00 120 H 13 98 11/13/16 09:58 127/70 11/13/16 09:57 120 H 12 98 11/13/16 09:51 114/71 11/13/16 09:02 120 H 10 L 97 11/13/16 09:00 120 H 10 L 98 11/13/16 08:58 120 H 11 L 114/71 97 11/13/16 08:00 100.5 F H 125 H 9 L 97 11/13/16 07:58 125 H 10 L 125/70 96 Intake and Output (Last 8hrs): Intake & Output 11/12/16 11/13/16 11/13/16 22:59 06:59 14:59 Intake Total 120 300 9 Output Total 345 340 190 Balance -225 -40 -181 Weight 196 lb Intake: Intake, IV Amount 300 9 Right Forearm 300 9 Oral 120 0 Output: Chest Tube Drainage 0 20 Rt chest pigtail 0 20 Urine 345 320 190 Urethral (Sawyer) 345 320 190 - Physical Exam Head: Positive for: Atraumatic, Normocephalic Mouth: Positive for: Moist Mucous Membranes Respiratory/Chest: Positive for: Decreased Breath Sounds Cardiovascular: Positive for: Tachycardic Abdomen: Positive for: Normal Bowel Sounds. Negative for: Tenderness, Distention Upper Extremity: Positive for: Normal Inspection. Negative for: Cyanosis, Edema Lower Extremity: Positive for: Normal Inspection. Negative for: Edema, CALF TENDERNESS Neurological: Positive for: GCS=15, CN II-XII Intact Skin: Positive for: Warm, Dry Psychiatric: Positive for: Alert, Oriented x 3 - Medications Active Medications: Active Medications Generic Name Dose Route Start Last Admin Trade Name Freq PRN Reason Stop Dose Admin Albuterol/Ipratropium 3 ml 11/08/16 12:04 11/09/16 19:36 Duoneb 3 Mg/0.5 Mg (3 Ml) Ud INH 3 ml RQ6 PRN Administration Wheezing Fentanyl 1 patch 11/11/16 10:15 11/11/16 11:36 Duragesic TD 1 patch Q72H JOURDAN Administration Furosemide 40 mg 11/13/16 10:00 11/13/16 09:51 Lasix IVP 40 mg DAILY JOURDAN Administration Heparin Sodium (Porcine) 5,000 units 11/11/16 14:00 11/13/16 05:31 Heparin SC 5,000 units Q8 JOURDAN Administration Piperacillin Sod/Tazobactam 100 mls @ 200 mls/hr 11/11/16 12:00 11/13/16 05:31 Sod 3.375 gm/ Sodium Chloride IVPB 200 mls/hr Q6H JOURDAN Administration Morphine Sulfate 250 mg/ 250 mls @ 1 mls/hr 11/13/16 07:51 11/13/16 09:52 Dextrose IV 11/14/16 07:50 5 mg/hr .Q24H ONE Titration Protocol - Patient Studies Lab Studies: Microbiology Studies 11/08/16 13:48 Blood Culture - Preliminary Blood NO GROWTH AFTER 4 DAYS 11/08/16 12:56 Blood Culture - Preliminary Blood NO GROWTH AFTER 4 DAYS Lab Studies 11/13/16 Range/Units 06:29 WBC 22.0 H (4.8-10.8) K/uL RBC 4.19 (3.80-5.20) Mil/uL Hgb 10.3 L (11.0-16.0) g/dL Hct 33.7 L (34.0-47.0) % MCV 80.4 L (81.0-99.0) fL MCH 24.5 L (27.0-31.0) pg MCHC 30.4 L (33.0-37.0) g/dL RDW 14.9 H (11.5-14.5) % Plt Count 703 H (130-400) K/uL MPV 8.6 (7.2-11.7) fL Neut % (Auto) 76.0 H (50.0-75.0) % Lymph % (Auto) 5.1 L (20.0-40.0) % [place] % (Auto) 18.3 H (0.0-10.0) % Eos % (Auto) 0.2 (0.0-4.0) % Baso % (Auto) 0.4 (0.0-2.0) % Neut # 16.7 H (1.8-7.0) K/uL Lymph # 1.1 (1.0-4.3) K/uL [place] # 4.0 H (0.0-0.8) K/uL Eos # 0.0 (0.0-0.7) K/uL Baso # 0.1 (0.0-0.2) K/uL Neutrophils % (Manual) 73 (50-75) % Lymphocytes % (Manual) 3 L (20-40) % Monocytes % (Manual) 23 H (0-10) % Eosinophils % (Manual) 1 (0-4) % Toxic Granulation Present Platelet Estimate Increased H (NORMAL) Large Platelets Present Giant Platelets Present Polychromasia Slight Hypochromasia (manual) Slight Basophilic Stippling Slight Anisocytosis (manual) Slight Sodium 140 (132-148) mmol/L Potassium 4.7 (3.6-5.2) mmol/L Chloride 100 (98-107) mmol/L Carbon Dioxide 32 H (22-30) mmol/L Anion Gap 13 (10-20) BUN 34 H (7-17) mg/dL Creatinine 1.0 (0.7-1.2) MG/DL Est GFR ( Amer) > 60 Est GFR (Non-Af Amer) 56 Random Glucose 86 (65-105) mg/dL Calcium 10.5 H (8.6-10.4) mg/dl Phosphorus 3.5 (2.5-4.5) mg/dL Magnesium 3.0 H (1.6-2.3) mg/dL Total Bilirubin 0.2 (0.2-1.3) mg/dL AST 79 H (14-36) U/L ALT 26 (9-52) U/L Alkaline Phosphatase 86 (38-126) U/L Total Protein 6.3 (6.3-8.3) g/dL Albumin 3.1 L (3.5-5.0) g/dL Globulin 3.2 (2.2-3.9) gm/dL Albumin/Globulin Ratio 1.0 (1.0-2.1) Laboratory Results - last 24 hr 11/13/16 06:29 WBC 22.0 H RBC 4.19 Hgb 10.3 L Hct 33.7 L MCV 80.4 L MCH 24.5 L MCHC 30.4 L RDW 14.9 H Plt Count 703 H MPV 8.6 Neut % (Auto) 76.0 H Lymph % (Auto) 5.1 L [place] % (Auto) 18.3 H Eos % (Auto) 0.2 Baso % (Auto) 0.4 Neut # 16.7 H Lymph # 1.1 [place] # 4.0 H Eos # 0.0 Baso # 0.1 Neutrophils % (Manual) 73 Lymphocytes % (Manual) 3 L Monocytes % (Manual) 23 H Eosinophils % (Manual) 1 Toxic Granulation Present Platelet Estimate Increased H Large Platelets Present Giant Platelets Present Polychromasia Slight Hypochromasia (manual) Slight Basophilic Stippling Slight Anisocytosis (manual) Slight Sodium 140 Potassium 4.7 Chloride 100 Carbon Dioxide 32 H Anion Gap 13 BUN 34 H Creatinine 1.0 Est GFR ( Amer) > 60 Est GFR (Non-Af Amer) 56 Random Glucose 86 Calcium 10.5 H Phosphorus 3.5 Magnesium 3.0 H Total Bilirubin 0.2 AST 79 H ALT 26 Alkaline Phosphatase 86 Total Protein 6.3 Albumin 3.1 L Globulin 3.2 Albumin/Globulin Ratio 1.0 Fingerstick Blood Sugar Results: 111 Critical Care Progress Note - Nutrition Nutrition: Nutrition Category Date Time Status Heart Healthy Diet [DIET] Diets 11/09/16 Dinner Active
--- NOTE | 2016-11-13 13:47 | RAD ---
History: SOB, lung ca and pneumothorax COMPARISON: 11/11/2016 FINDINGS: LUNGS: Multifocal nodular opacities throughout both lungs, again seen consistent with metastatic disease. Subsegmental atelectasis right lung base. Questionable mild chronic compensated central pulmonary edema PLEURA: No obvious pneumothorax. . CARDIOVASCULAR: Stable cardiomediastinal silhouette. OSSEOUS STRUCTURES: The osseous structures demonstrate degenerative changes. VISUALIZED UPPER ABDOMEN: Upper abdomen is suboptimally evaluated. OTHER FINDINGS: Re- demonstrated is right-sided catheter overlying the projection of the right lung bases. IMPRESSION: Re- demonstrated is right-sided pigtail catheter. Subsegmental atelectasis right lung base No obvious pneumothorax . Multiple metastatic bilateral metastatic lesions. Questionable mild chronic compensated central pulmonary edema
[2016-11-14] MEDS: Piperacillin/Tazobact 3.375 GM in Sodium Chloride 100 ML IVPB SCH (05:31)
[2016-11-14] MEDS: Morphine Sulfate 250 MG in Dextrose 5% In Water 240 ML IV ONE ×2 (09:00→20:01)
--- NOTE | 2016-11-14 09:24 | CP.PCM.PN ---
Subjective - Date & Time of Evaluation Date of Evaluation: 11/14/16 Time of Evaluation: 09:15 - Subjective Subjective: Patient is still on morphine ggt. Currently not responsive to command or stimuli. Currently on Bipap Yesterday family was present at bedside. They wanted her to be made as comfortable as possible. was present and they wanted her to be allowed to a natural . Paper work was signed. Code status changed to DNR and DNI. I explained to the patient as well as family present we would still be giving patient pain control as well as lasix to help with the breathing. Today this morning her respirations look easier and not as labored as yesterday Will be moving to medical floors later today. For hospice evaluation Objective - Vital Signs/Intake and Output Vital Signs (last 24 hours): Temp Pulse Resp BP Pulse Ox 97 F L 144 H 13 115/65 88 L 11/14/16 08:00 11/14/16 08:00 11/14/16 08:00 11/14/16 07:58 11/14/16 08:00 Intake and Output: 11/14/16 11/14/16 06:59 18:59 Intake Total 59 5 Output Total 308 100 Balance -249 -95 - Medications Medications: Current Medications Fentanyl (Duragesic) 1 patch TD Q72H JOURDAN Last Admin: 11/11/16 11:36 Dose: 1 patch Morphine Sulfate 250 mg/ (Dextrose) 250 mls @ 1 mls/hr IV .Q24H ONE PRN Reason: Protocol Stop: 11/15/16 08:24 - Labs Labs: 11/13/16 06:29 11/13/16 06:29 PT 12.8 SECONDS (9.7-12.2) H 11/03/16 16:53 INR 1.1 11/03/16 16:53 APTT 28 SECONDS (21-34) D 11/03/16 16:53 - Constitutional Appears: Chronically Ill - Head Exam Head Exam: NORMAL INSPECTION - ENT Exam ENT Exam: Mucous Membranes Moist - Respiratory Exam Respiratory Exam: Decreased Breath Sounds, Rhonchi - Neurological Exam Neurological Exam: Altered Assessment and Plan - Assessment and Plan (Free Text) Assessment: Pulmonary Masses, respiratory distress 11/14: Now DNR DNI, currently on morphine ggt, lasix as well. Hospice evaluation 11/13: This morning family is waiting for reguarding DNR. The patient is not responsive, breathing is labored. We are continuing lasix for now. PO medications have been stopped. Patient is tachy cardic, from both lung malignancy, and also sepsis as well 11/12: Will give more lasix, stop norvasc. The weight increased to 195, follow I and Os. 11/10: Patient has a small pneuthorax at the moment, she had a lung biopsy done . May or may not need a chest tube. The chest CT from 11/09 shows that the bilateral pleural effusions are still present with the left side slightly worse. She was getting IVF for a hypercalcemia so will hold the IVF now. She is on Lasix Chest CT: innumerable bilateral pulmonary masses; large 8.2 x 6.2 cm central mass with irregular contours abutting/encasing branches of the pulmonary artery ; small right sided pleural effusion; consistent with metastatic disease; mediastinal adenopathy; 11 mm hepatic lesion within the right hepatic lobe; no pulmonary embolus evident (please see full report) heme/onc consult, Dr. Esposito, help appreciated. Wili prn for wheezing Interventional Radiology, Dr. Rivera CXR (11/08) right central lung mass, with innumerable bilateral pulmonary masses ; interval left pleural effusion (please see full report) CXR (11/09) small right pneumothorax following lung biospy (please see full report) Uterine/Ovarian Malignancy with metastatic spread 11/13: Patient is not responsive, breathing labored 11/12: Pain is controlled at this time with Dilaudid IV, Fentanyl patch, Toradol IV 11/10: Still having a lot of pain, will increase pain medication to 1mg Diluadid IV Abd/pelvis U/S: enlarged, rounded at the fundus, bulky and in homogenous uterus measuring 10.8 x 7.9 x 7.7cm. Fibroid mass at posterior aspect of uterus measuring 6.5 x 5.3 x 5.2cm (please see full report). Histology Assistant consulted, Dr. Wilson, help appreciated heme/onc consult, Dr. Esposito, help appreciated ABD US: Markedly limited study due to patient condition and pain. Heterogenous echogenic liver limits evaluation. Nodular hepatic contour with perihepatic ascites present. Dialated CBD in setting of cholecystectomy. Right-sided hydronephrosis (see full report). Pelvic US: suboptimal examination which was markedly limited by patient coniditon/pain. Enlarged heterogenous complex apearance of uterine/pelvic mass 18.3 x 13.1 x 17.2 cm. Endometrial stripe not adequately visualized, markedly thickened irregular heterogenous region measuring 6.4 cm (see full report) Sepsis from Pneumonia - likley secondary from obstruction in the lungs from cancer 11/13: Unfortunately WBC worsening, patient is sepsis. Low BP, pending DNR at this time. 11/12: Still elavated at this time, blood cultures negative at this time 11/10: Patient is on day 2 of Azithromycin and Rocephin. Afebrile. Cultures of blood negative at this time. Possible stress related however need to monitor. Hypercalcemia 11/10: Better now, she has been on lasix as well as IVF. The IVF is now off due to pleural effusions and respiratory distress Likely secondary to malignancy Lasix 20 mg IV qd T4 1.48 TSH 1.55 PTH - 2 low PTH related peptide levels pending Ionized Ca level pending EKG 11/04 w/sinus tachycardia- official read pending EKG 11/03 - normal QT interval Thyroid ultrasound: 1. Multiple (15) thyroid nodules varying from 2 mm to 1.5 cm. 2. Exophytic nodule or possible right parathyroid mass/ adenoma followup advised. Parathyroid scan recommended in the clinical presentation of hypercalcemia with this finding (see full report). Chest CT: innumerable bilateral pulmonary masses; large 8.2 x 6.2 cm central mass with irregular contours abutting/encasing branches of the pulmonary artery ; small right sided pleural effusion; consistent with metastatic disease; mediastinal adenopathy; 11 mm hepatic lesion within the right hepatic lobe; no pulmonary embolus evident (see full report) CEA <0.3 CA-125 - 305 HTN 11/12: Holding Noravc, holding Toprolol Coronary Artery Disease Crestor 5 mg po hs Imdur 30 mg po qd Prophylactic Measures GI: Protonix 40 mg po qd DVT: Heparin 5000 units sc q8h, SCDs
--- NOTE | 2016-11-14 10:17 | CP.CCUPN ---
<Ledy Reynolds - Last Filed: 11/14/16 10:14> CCU Subjective - Physician Review Subjective (Free Text): Patient was seen and examined at bedside. Patient was made DNR/ DNI over the weekend. Currently on morphine drip, fentanyl patch. Hospice consulted for comfort care. Currently on 100% nonrebreather. CCU Objective - Vital Signs / Intake & Output Vital Signs (Last 4 hours): Vital Signs Temp Pulse Resp BP Pulse Ox 11/14/16 10:00 138 H 14 11/14/16 09:58 138 H 14 111/64 11/14/16 09:57 138 H 13 11/14/16 09:00 140 H 12 11/14/16 08:58 140 H 13 110/65 11/14/16 08:35 142 H 14 11/14/16 08:00 97 F L 144 H 13 88 L 11/14/16 07:58 144 H 13 115/65 11/14/16 07:00 143 H 12 84 L Intake and Output (Last 8hrs): Intake & Output 11/13/16 11/14/16 11/14/16 22:59 06:59 14:59 Intake Total 140 35 15 Output Total 197 308 120 Balance -57 -273 -105 Intake: Intake, IV Amount 132 35 15 Left Wrist 100 Right Forearm 32 35 15 Oral 8 Output: Chest Tube Drainage 12 8 Rt chest pigtail 12 8 Urine 185 300 120 Urethral (Sawyer) 185 300 120 - Physical Exam Head: Positive for: Atraumatic, Normocephalic Mouth: Positive for: Moist Mucous Membranes Respiratory/Chest: Positive for: Decreased Breath Sounds Cardiovascular: Positive for: Tachycardic Abdomen: Positive for: Normal Bowel Sounds. Negative for: Tenderness, Distention Upper Extremity: Positive for: Normal Inspection. Negative for: Cyanosis, Edema Lower Extremity: Positive for: Normal Inspection. Negative for: Edema, CALF TENDERNESS Neurological: Positive for: GCS=15, CN II-XII Intact Skin: Positive for: Warm, Diaphoretic Psychiatric: Positive for: Alert - Medications Active Medications: Active Medications Generic Name Dose Route Start Last Admin Trade Name Freq PRN Reason Stop Dose Admin Fentanyl 1 patch 11/11/16 10:15 11/14/16 09:52 Duragesic TD 1 patch Q72H JOURDAN Administration Morphine Sulfate 250 mg/ 250 mls @ 1 mls/hr 11/14/16 08:25 Dextrose IV 11/15/16 08:24 .Q24H ONE Protocol - Patient Studies Lab Studies: Microbiology Studies 11/08/16 13:48 Blood Culture - Final Blood NO GROWTH AFTER 5 DAYS Gram Stain - Final TEST NOT PERFORMED 11/08/16 12:56 Blood Culture - Final Blood NO GROWTH AFTER 5 DAYS Gram Stain - Final TEST NOT PERFORMED Fingerstick Blood Sugar Results: 111 Critical Care Progress Note - Nutrition Nutrition: Nutrition Category Date Time Status Heart Healthy Diet [DIET] Diets 11/09/16 Dinner Active Assessment/Plan - Assessment and Plan (Free Text) Plan: Pulmonary Masses, respiratory distress 11/14: Now DNR DNI, currently on morphine ggt, fentanyl patch. Hospice evaluation. Transferred to med/surg 11/13: This morning family is waiting for reguarding DNR. The patient is not responsive, breathing is labored. We are continuing lasix for now. PO medications have been stopped. Patient is tachy cardic, from both lung malignancy, and also sepsis as well 11/12: Will give more lasix, stop norvasc. The weight increased to 195, follow I and Os. 11/10: Patient has a small pneuthorax at the moment, she had a lung biopsy done . May or may not need a chest tube. The chest CT from 11/09 shows that the bilateral pleural effusions are still present with the left side slightly worse. She was getting IVF for a hypercalcemia so will hold the IVF now. She is on Lasix Chest CT: innumerable bilateral pulmonary masses; large 8.2 x 6.2 cm central mass with irregular contours abutting/encasing branches of the pulmonary artery ; small right sided pleural effusion; consistent with metastatic disease; mediastinal adenopathy; 11 mm hepatic lesion within the right hepatic lobe; no pulmonary embolus evident (please see full report) heme/onc consult, Dr. Esposito, help appreciated. Wili jiménezn for wheezing Interventional Radiology, Dr. Rivera CXR (11/08) right central lung mass, with innumerable bilateral pulmonary masses ; interval left pleural effusion (please see full report) CXR (11/09) small right pneumothorax following lung biospy (please see full report) Uterine/Ovarian Malignancy with metastatic spread 11/14: Patient is not responsive, breathing labored 11/12: Pain is controlled at this time with Dilaudid IV, Fentanyl patch, Toradol IV 11/10: Still having a lot of pain, will increase pain medication to 1mg Diluadid IV Abd/pelvis U/S: enlarged, rounded at the fundus, bulky and in homogenous uterus measuring 10.8 x 7.9 x 7.7cm. Fibroid mass at posterior aspect of uterus measuring 6.5 x 5.3 x 5.2cm (please see full report). Protozoologist consulted, Dr. Wilson, help appreciated heme/onc consult, Dr. Esposito, help appreciated ABD US: Markedly limited study due to patient condition and pain. Heterogenous echogenic liver limits evaluation. Nodular hepatic contour with perihepatic ascites present. Dialated CBD in setting of cholecystectomy. Right-sided hydronephrosis (see full report). Pelvic US: suboptimal examination which was markedly limited by patient coniditon/pain. Enlarged heterogenous complex apearance of uterine/pelvic mass 18.3 x 13.1 x 17.2 cm. Endometrial stripe not adequately visualized, markedly thickened irregular heterogenous region measuring 6.4 cm (see full report) Sepsis from Pneumonia - likley secondary from obstruction in the lungs from cancer 11/14: Unfortunately WBC worsening, patient is sepsis. Low BP, pending DNR/DNI at this time. 11/12: Still elavated at this time, blood cultures negative at this time 11/10: Patient is on day 2 of Azithromycin and Rocephin. Afebrile. Cultures of blood negative at this time. Possible stress related however need to monitor. Hypercalcemia 11/13: Better now, she has been on lasix as well as IVF. The IVF is now off due to pleural effusions and respiratory distress Likely secondary to malignancy Lasix 20 mg IV qd T4 1.48 TSH 1.55 PTH - 2 low PTH related peptide levels pending Ionized Ca level pending EKG 11/04 w/sinus tachycardia- official read pending EKG 11/03 - normal QT interval Thyroid ultrasound: 1. Multiple (15) thyroid nodules varying from 2 mm to 1.5 cm. 2. Exophytic nodule or possible right parathyroid mass/ adenoma followup advised. Parathyroid scan recommended in the clinical presentation of hypercalcemia with this finding (see full report). Chest CT: innumerable bilateral pulmonary masses; large 8.2 x 6.2 cm central mass with irregular contours abutting/encasing branches of the pulmonary artery ; small right sided pleural effusion; consistent with metastatic disease; mediastinal adenopathy; 11 mm hepatic lesion within the right hepatic lobe; no pulmonary embolus evident (see full report) CEA <0.3 CA-125 - 305 DW Rodolfo Brown DO, PGY-1 <Tess John - Last Filed: 11/18/16 17:20> CCU Subjective - Physician Review Events Since Last Encounter (Free Text): 11/18/16 17:20 I am not responsible for this note, assigned in error to me. CCU Objective - Vital Signs / Intake & Output Vital Signs (Last 4 hours): Vital Signs Pulse Resp 11/14/16 19:00 118 H 17 11/14/16 18:01 127 H 14 11/14/16 18:00 128 H 14 Intake and Output (Last 8hrs): Intake & Output 11/14/16 11/14/16 11/14/16 06:59 14:59 22:59 Intake Total 35 135 25 Output Total 308 480 605 Balance -273 -940 -515 Intake: Intake, IV Amount 35 135 25 Left Wrist 100 Right Forearm 35 35 25 Output: Chest Tube Drainage 8 280 Rt chest pigtail 8 280 Urine 300 480 325 Urethral (Sawyer) 300 480 325 - Medications Active Medications: Active Medications Generic Name Dose Route Start Last Admin Trade Name Freq PRN Reason Stop Dose Admin Fentanyl 1 patch 11/11/16 10:15 11/14/16 09:52 Duragesic TD 1 patch Q72H JOURDAN Administration Morphine Sulfate 250 mg/ 250 mls @ 1 mls/hr 11/14/16 08:25 11/14/16 20:01 Dextrose IV 11/15/16 08:24 10 mls/hr .Q24H ONE Administration Protocol Lorazepam 2 mg 11/14/16 19:56 11/14/16 20:06 Ativan IVP 2 mg Q20M PRN Administration Other Critical Care Progress Note - Nutrition Nutrition: Nutrition Category Date Time Status NPO Diet [DIET] Diets 11/15/16 Breakfast Active
[2016-11-14] MEDS ORDERED: Acetaminophen IV 1,000 MG in Premixed IV 1 EA IV ONE (13:45)
[2016-11-14 17:09] VITALS: O2SAT 87
--- NOTE | 2016-11-14 21:23 | CP.PCM.PRO ---
Pronouncement of Note - Pronouncement Time Time of Pronouncement of : 20:14 Additional Comments: Patient was undergoing withdrawal of care. - Notifications Pronouncement Notifications: Family Notified (yes), Atending Notified (yes) Chick Room Supervisor Notified: No - Autopsy Autopsy Requested: No - [place]: [id number] Additional Comments: Brief exam done at bedside no response to verbal and noxious stimuli, absence of reflexes, no heart or lung sounds.
[2016-11-14 21:25] VITALS: BP 78/50; TEMP 98
[2016-11-14 22:31] VITALS: PULSE 75; RESP 21
--- NOTE | 2016-11-15 12:19 | CP.PCM.DIS ---
Provider - Provider Date of Admission: 11/03/16 19:50 Attending physician: Satya Meyers DO Time Spent in preparation of Discharge (in minutes): 35 Hospital Course - Lab Results Lab Results: Micro Results 11/08/16 13:48 Blood Blood Culture - Final NO GROWTH AFTER 5 DAYS 11/08/16 13:48 Blood Gram Stain - Final TEST NOT PERFORMED 11/08/16 12:56 Blood Blood Culture - Final NO GROWTH AFTER 5 DAYS 11/08/16 12:56 Blood Gram Stain - Final TEST NOT PERFORMED Most Recent Lab Values WBC 22.0 K/uL (4.8-10.8) H 11/13/16 06:29 RBC 4.19 Mil/uL (3.80-5.20) 11/13/16 06:29 Hgb 10.3 g/dL (11.0-16.0) L 11/13/16 06:29 Hct 33.7 % (34.0-47.0) L 11/13/16 06:29 MCV 80.4 fL (81.0-99.0) L 11/13/16 06:29 MCH 24.5 pg (27.0-31.0) L 11/13/16 06:29 MCHC 30.4 g/dL (33.0-37.0) L 11/13/16 06:29 RDW 14.9 % (11.5-14.5) H 11/13/16 06:29 Plt Count 703 K/uL (130-400) H 11/13/16 06:29 MPV 8.6 fL (7.2-11.7) 11/13/16 06:29 Neut % (Auto) 76.0 % (50.0-75.0) H 11/13/16 06:29 Lymph % (Auto) 5.1 % (20.0-40.0) L 11/13/16 06:29 [place] % (Auto) 18.3 % (0.0-10.0) H 11/13/16 06:29 Eos % (Auto) 0.2 % (0.0-4.0) 11/13/16 06:29 Baso % (Auto) 0.4 % (0.0-2.0) 11/13/16 06:29 Neut # 16.7 K/uL (1.8-7.0) H 11/13/16 06:29 Lymph # 1.1 K/uL (1.0-4.3) 11/13/16 06:29 [place] # 4.0 K/uL (0.0-0.8) H 11/13/16 06:29 Eos # 0.0 K/uL (0.0-0.7) 11/13/16 06:29 Baso # 0.1 K/uL (0.0-0.2) 11/13/16 06:29 Neutrophils % (Manual) 73 % (50-75) 11/13/16 06:29 Band Neutrophils % 1 % (0-2) 11/12/16 06:19 Lymphocytes % (Manual) 3 % (20-40) L 11/13/16 06:29 Reactive Lymphs % 1 % (0-0) H 11/12/16 06:19 Monocytes % (Manual) 23 % (0-10) H 11/13/16 06:29 Eosinophils % (Manual) 1 % (0-4) 11/13/16 06:29 Basophils % (Manual) 1 % (0-2) 11/10/16 06:30 Myelocytes % 2 % (0-0) H 11/10/16 06:30 Nucleated RBC % 1 % (0-0) H 11/11/16 06:00 Toxic Granulation Present 11/13/16 06:29 Platelet Estimate Increased (NORMAL) H 11/13/16 06:29 Large Platelets Present 11/13/16 06:29 Giant Platelets Present 11/13/16 06:29 Polychromasia Slight 11/13/16 06:29 Hypochromasia (manual) Slight 11/13/16 06:29 Poikilocytosis (manual Slight 11/11/16 06:00 Basophilic Stippling Slight 11/13/16 06:29 Anisocytosis (manual) Slight 11/13/16 06:29 Microcytosis (manual) Slight 11/11/16 06:00 Macrocytosis (manual) Slight 11/11/16 06:00 PT 12.8 SECONDS (9.7-12.2) H 11/03/16 16:53 INR 1.1 11/03/16 16:53 APTT 28 SECONDS (21-34) D 11/03/16 16:53 D-Dimer, Quantitative 977 ng/mlDDU (0-243) H 11/03/16 16:53 Puncture Site Rb 11/11/16 10:17 pCO2 43 mm/Hg (35-45) 11/11/16 10:17 pO2 70 mm/Hg (80-100) L 11/11/16 10:17 HCO3 26.1 mmol/L (21-28) 11/11/16 10:17 ABG pH 7.40 (7.35-7.45) 11/11/16 10:17 ABG Total CO2 27.9 mmol/L (22-28) 11/11/16 10:17 ABG O2 Saturation 97.2 % (95-98) 11/11/16 10:17 ABG Base Excess 1.5 mmol/L (-2.0-3.0) 11/11/16 10:17 ABG Hemoglobin 10.6 g/dL (11.7-17.4) L 11/11/16 10:17 ABG Carboxyhemoglobin 1.7 % (0.5-1.5) H 11/11/16 10:17 POC ABG HHb (Measured) 2.7 % (0.0-5.0) 11/11/16 10:17 ABG Methemoglobin 1.1 % (0.0-3.0) 11/11/16 10:17 Ken Test Na 11/11/16 10:17 ABG Potassium 3.2 mmol/L (3.6-5.2) L 11/06/16 11:24 A-a O2 Difference 583.0 mm/Hg 11/09/16 17:41 Respiratory Index 9.0 11/09/16 17:41 Hgb O2 Saturation 94.6 % (95.0-98.0) L 11/11/16 10:17 Sodium 136.0 mmol/l (132-148) 11/06/16 11:24 Chloride 107.0 mmol/L (98-107) 11/06/16 11:24 Glucose 92 mg/dl (65-105) 11/06/16 11:24 Lactate 1.9 mmol/L (0.7-2.1) 11/06/16 11:24 Liter Flow 15.0 11/11/16 10:17 FiO2 100.0 % 11/09/16 17:41 Inspiratory BiPAP 10 11/09/16 17:41 Expiratory BiPAP 5 11/09/16 17:41 Sodium 140 mmol/L (132-148) 11/13/16 06:29 Potassium 4.7 mmol/L (3.6-5.2) 11/13/16 06:29 Chloride 100 mmol/L (98-107) 11/13/16 06:29 Carbon Dioxide 32 mmol/L (22-30) H 11/13/16 06:29 Anion Gap 13 (10-20) 11/13/16 06:29 BUN 34 mg/dL (7-17) H 11/13/16 06:29 Creatinine 1.0 MG/DL (0.7-1.2) 11/13/16 06:29 Est GFR ( Amer) > 60 11/13/16 06:29 Est GFR (Non-Af Amer) 56 11/13/16 06:29 POC Glucose (mg/dL) 101 mg/dL (65-110) 11/10/16 11:26 Random Glucose 86 mg/dL (65-105) 11/13/16 06:29 Hemoglobin A1c 6.6 % (4.2-6.5) H 11/04/16 06:29 Calcium 10.5 mg/dl (8.6-10.4) H 11/13/16 06:29 Ionized Calcium 6.2 mg/dL (4.80-5.60) H 11/04/16 19:34 Phosphorus 3.5 mg/dL (2.5-4.5) 11/13/16 06:29 Magnesium 3.0 mg/dL (1.6-2.3) H 11/13/16 06:29 Total Bilirubin 0.2 mg/dL (0.2-1.3) 11/13/16 06:29 AST 79 U/L (14-36) H 11/13/16 06:29 ALT 26 U/L (9-52) 11/13/16 06:29 Alkaline Phosphatase 86 U/L (38-126) 11/13/16 06:29 Troponin I < 0.0120 ng/mL (0.00-0.120) 11/03/16 16:53 NT-Pro-B Natriuret Pep 60.9 pg/mL (0-900) 11/03/16 16:53 Total Protein 6.3 g/dL (6.3-8.3) 11/13/16 06:29 Albumin 3.1 g/dL (3.5-5.0) L 11/13/16 06:29 Globulin 3.2 gm/dL (2.2-3.9) 11/13/16 06:29 Albumin/Globulin Ratio 1.0 (1.0-2.1) 11/13/16 06:29 Carcinoembryonic Ag < 0.3 ng/mL (0-3.0) 11/05/16 06:21 CA 125 Antigen 305 U/mL (0-35) H 11/04/16 19:19 25-OH Vitamin D Total 16.5 NG/ML (30.0-100.0) L 11/04/16 06:29 Free T4 1.48 ng/dL (0.78-2.19) 11/04/16 19:19 TSH 3rd Generation 1.55 mIU/L (0.46-4.68) 11/04/16 19:19 PTH Intact Whole Mole[place] 2 pg/mL (14-64) L 11/03/16 07:20 Arterial Blood Potassium 3.2 mmol/L (3.6-5.2) L 11/06/16 11:24 Urine Color Straw (YELLOW) 11/08/16 12:56 Urine Clarity Clear (Clear) 11/08/16 12:56 Urine pH 5.0 (5.0-8.0) 11/08/16 12:56 Ur Specific [place] 1.006 (1.003-1.030) 11/08/16 12:56 Urine Protein Negative mg/dL (NEGATIVE) 11/08/16 12:56 Urine Glucose (UA) Normal mg/dL (Normal) 11/08/16 12:56 Urine Ketones Negative mg/dL (NEGATIVE) 11/08/16 12:56 Urine Blood 1+ (NEGATIVE) H 11/08/16 12:56 Urine Nitrate Negative (NEGATIVE) 11/08/16 12:56 Urine Bilirubin Negative (NEGATIVE) 11/08/16 12:56 Urine Urobilinogen Normal mg/dL (0.2-1.0) 11/08/16 12:56 Ur Leukocyte Esterase Neg Xochitl/uL (Negative) 11/08/16 12:56 Urine WBC (Auto) 1 /hpf (0-5) 04/18/17 12:56 Urine RBC (Auto) 1 /hpf (0-3) 11/08/16 12:56 Ur Squamous Epith Cells < 1 /hpf (0-5) 11/08/16 12:56 Hepatitis A IgM Ab Negative (NEGATIVE) 11/06/16 09:49 Hep Bs Antigen Negative (NEGATIVE) 11/06/16 09:49 Hep B Core IgM Ab Negative (NEGATIVE) 11/06/16 09:49 Hepatitis C Antibody Negative (NEGATIVE) 11/06/16 09:49 Influenza Typ A,B (EIA) Negative for flu a/b (NEGATIVE) 11/08/16 12:08 - Hospital Course Hospital Course: Upon Admission: Patient is a 66 year old Maximiliano female with past medical history of hypertension , hyperlipidemia, coronary artery disease status post stenting, and uterine fibroids who presents to the hospital with complaint of generalized fatigue, malaise, and weakness for the past two weeks. Patient was previously seen in the ED here on 10/24/16, at which time she was diagnosed with hypercalcemia, with a calcium level of 11.9. Patient was told at that time to discontinue her use of hydrochlorothiazide and vitamin D. Patient was referred to the [facility] for follow up care. Patient was seen at the clinic yesterday 11/02, by Dr. Rhoades, for management of her uterine fibroids. During that clinic visit the possibility of malignancy in the uterus was discussed due to uterus size and patient discussed her preference for hysterectomy. Patient was also seen in the clinic today, , for follow up of her hypercalcemia and lab work and thyroid ultrasound was ordered. Patient states that she felt too weak and came back to the ED for re- evaluation. Patient admits to sleeping more during the day, as well as poor sleep at night due to waking up 2-3 times per night to urinate. Patient states she was told that her uterine fibroids are pressing on her bladder as the cause of the urinary frequency. Patient admits to feeling hot and breaking out into a sweat occasionally. Patient also admits to light-headedness but denies room spinning. Patient admits to visual changes where she sees a silver spot zig-zag across her vision - this has occurred 3 times over the past 2 weeks. Patient admits to occasional palpitations but denies chest pain. Patient admits to shortness of breath with walking at a fast pace for one block. Patient denies needing to stop walking, but will have to slow down. Patient denies orthopnea. Patient admits to nausea and constipation but denies change in stool color. Patient is able to have bowel movement with aid of stool softener. Patient admits to occasional back pain. She also admits to 9 pound unintentional weight loss over 3 months duration. Patient and family deny change in mentation. PMD: [facility] Outpatient gynecology: Dr. Rhoades at [facility] PMHx: HTN, HLD, CAD, uterine fibroids PSHx: appendectomy, cholecystectomy, cardiac catheterization with stents FamHx: sister with diabetes, mother and father of [place] in mid 70s Social Hx: former 1 ppd smoker for 30 years, quit 10-15 years ago; denies drugs and alcohol; lives with daughter Allergies: lisinopril- constant dry cough Throughout Hospital Course: Patient was admitted for SOB, hypercalcemia with pulmonary mass. 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 Abd/pelvis U/ S: enlarged, rounded at the fundus, bulky and in homogenous uterus measuring 10.8 x 7.9 x 7.7cm. Fibroid mass at posterior aspect of uterus measuring 6.5 x 5.3 x 5.2cm (please see full report). ABD US: Markedly limited study due to patient condition and pain. Heterogenous echogenic liver limits evaluation. Nodular hepatic contour with perihepatic ascites present. Dialated CBD in setting of cholecystectomy. Right-sided hydronephrosis (see full report). Pelvic US: suboptimal examination which was markedly limited by patient coniditon/pain. Enlarged heterogenous complex apearance of uterine/pelvic mass 18.3 x 13.1 x 17.2 cm. Endometrial stripe not adequately visualized, markedly thickened irregular heterogenous region measuring 6.4 cm (see full report). Chest CT: innumerable bilateral pulmonary masses; large 8.2 x 6.2 cm central mass with irregular contours abutting/encasing branches of the pulmonary artery ; small right sided pleural effusion; consistent with metastatic disease; mediastinal adenopathy; 11 mm hepatic lesion within the right hepatic lobe; no pulmonary embolus evident (please see full report). Patient underwent a lung biopsy of the right hilar mass and developed a right sided pneumothorax. A chest tube was placed which resolved the pneumothorax. Heme/ oncology, palliative care was consulted and the patient was made DNR/ DNI , and comfort care was started. Discharge Exam - Head Exam Additional comments: Discharge Plan - Follow Up Plan Condition: Disposition: WITH WITHOUT AUTOPSY
== END 2016-11-14 20:14 | DRG 572 ==
LOC: C.ER 15:26 → C.9E 19:50 → C.9I 21:21
PROVIDERS: ADMIT Hospitalist; ATTEND Hospitalist
PROC: BB24ZZZ Computerized Tomography (CT Scan) of Bilateral Lungs (ICD-10-PCS; 2016-11-09)
PROC: 5A09457 Assistance with Respiratory Ventilation, 24-96 Consecutive Hours, Continuous Positive Airway Pressure (ICD-10-PCS; 2016-11-09)
PROC: 0BBC3ZX Excision of Right Upper Lung Lobe, Percutaneous Approach, Diagnostic (ICD-10-PCS; principal; 2016-11-09 11:00)
PROC: 0W9930Z Drainage of Right Pleural Cavity with Drainage Device, Percutaneous Approach (ICD-10-PCS; 2016-11-10)
DX: C55 Malignant neoplasm of uterus, part unspecified (principal); J95.811 Postprocedural pneumothorax; J91.0 Malignant pleural effusion; C78.01 Secondary malignant neoplasm of right lung; C77.1 Secondary and unspecified malignant neoplasm of intrathoracic lymph nodes; C78.02 Secondary malignant neoplasm of left lung; E83.52 Hypercalcemia; N13.30 Unspecified hydronephrosis; I10 Essential (primary) hypertension; D50.9 Iron deficiency anemia, unspecified; E11.9 Type 2 diabetes mellitus without complications; R06.02 Shortness of breath; I25.10 Atherosclerotic heart disease of native coronary artery without angina pectoris; E78.00 Pure hypercholesterolemia, unspecified; N95.0 Postmenopausal bleeding; R63.4 Abnormal weight loss; R35.0 Frequency of micturition; E78.5 Hyperlipidemia, unspecified; K59.09 Other constipation; F43.22 Adjustment disorder with anxiety; Z66 Do not resuscitate; Z51.5 Encounter for palliative care; Z95.5 Presence of coronary angioplasty implant and graft; Z90.49 Acquired absence of other specified parts of digestive tract; Z87.891 Personal history of nicotine dependence; Z87.440 Personal history of urinary (tract) infections